=== PATIENT | male | born 1945 | race Caucasian/White ===

== ENCOUNTER 2018-04-21 12:34 | Inpatient (IN) ==
[2018-04-21 12:58] LABS: Baso % (Auto) 0.2 % (0.0-2.0); Eos # (Auto) 0.1 th/mm3 (0.0-0.4); Hematocrit 42.7 % (39.0-51.0); Hemoglobin 13.7 gm/dL (13.0-17.0); Lymph # (Auto) 1.1 th/mm3 (1.0-4.8); Lymph % (Auto) 11.2 % (9.0-44.0); Mean Corpuscular HGB Conc 32.2 % (32.0-36.0); Mean Corpuscular Hemoglobin 26.8 pg (27.0-34.0); Mean Corpuscular Volume 83.2 fL (80.0-100.0); Mean Platelet Volume 8.7 fL (7.0-11.0); Mono # (Auto) 0.7 th/mm3 (0.0-0.9); Mono % (Auto) 7.2 % (0.0-8.0); Neut # (Auto) 8.3 th/mm3 (1.8-7.7); Neut % (Auto) 80.4 % (16.0-70.0); Platelet Count 179 th/mm3 (150-450); Red Blood Count 5.13 mil/mm3 (4.50-5.90); Red Cell Distribution Width 12.6 % (11.6-17.2); White Blood Count 10.2 th/mm3 (4.0-11.0)
[2018-04-21 13:09] LABS: Chloride 102 meq/L (98-107); Potassium 4.2 meq/L (3.5-5.1); Sodium 140 meq/L (136-145)
[2018-04-21 13:12] LABS: Albumin 3.5 g/dL (3.4-5.0); Anion Gap 8 meq/L (5-15); Calcium 8.5 mg/dL (8.5-10.1); Carbon Dioxide 29.6 meq/L (21.0-32.0)
--- NOTE | 2018-04-21 13:12 | ED ---
HPI General Chief complaint: Chest Pain Stated complaint: Chest tightness Time Seen by Provider: 04/21/18 12:47 History of Present Illness HPI narrative: Mr. Martin is a 73-year-old with a PMH significant for CHF, COPD and diabetes mellitus type 2 who presents to the ED with a chief complaint of having "difficulty breathing and head pressure." The symptoms first occurred morning while the patient was playing golf. The symptoms resolved and occurred again this morning. He took an albuterol breathing treatment with no symptomatic relief. His blood pressure was 168/73 mmHg this morning and he decided to visit the ED. He endorses mild SOB. He denies chest pain, dyspnea on deep inspiration, fever, chills, nausea, vomiting, diaphoresis, ligthheadedness , headache, change in vision, abdominal pain, weakness, tingling and numbness. Related Data Home Medications Medication Instructions Recorded Confirmed albuterol sulfate 0.63 mg INHALATION QID PRN 04/21/18 04/21/18 celecoxib [Celebrex] 200 mg PO DAILY 04/21/18 04/21/18 furosemide [Lasix] 20 mg PO DAILY PRN 04/21/18 04/21/18 metformin 1,000 mg PO DAILY 04/21/18 04/21/18 metformin 500 mg PO DAILY 04/21/18 04/21/18 pantoprazole 20 mg PO DAILY 04/21/18 04/21/18 potassium chloride 10 meq PO DAILY PRN 04/21/18 04/21/18 tiotropium bromide [Spiriva 2 puff INHALATION DAILY 04/21/18 04/21/18 Respimat] Allergies Allergy/AdvReac Type Severity Reaction Status Date / Time No Known Allergies Allergy Unverified 04/21/18 13:07 Review of Systems ROS: all other systems reviewed are negative [facility] Medical History Medical History Hx of fracture of femur (Acute) Hx of congestive heart failure (Acute) History of COPD (Acute) Hx of diabetes mellitus (Acute) Social History Social History Substance History: No History of Abuse Second Hand Smoke Exposure: No Smoking Status: Former smoker Tobacco Type: Cigarettes How Often Do You Have a Drink Containing Alcohol: Never Recent Travel in [facility] within the Last 8 Weeks: No Recent Out of Country Travel within the Last 8 Weeks: No Exam Narrative Exam Narrative: GENERAL: Appears in no sign of distress. Speaks logically and without difficulty. SKIN: Warm and dry. HEAD: Atraumatic. Normocephalic. EYES: Pupils equal and round. No scleral icterus. No injection or drainage. ENT: No nasal bleeding or discharge. Mucous membranes pink and moist. NECK: Trachea midline. No JVD. CARDIOVASCULAR: Regular rate and rhythm. No rubs or murmurs. RESPIRATORY: No accessory muscle use. Wheezes auscultated bilaterally at the base and midthoracic level. GASTROINTESTINAL: Abdomen soft, nondistended. Hepatic and splenic margins not palpable. Mildly tender to palpation in epigastric region. MUSCULOSKELETAL: Extremities without clubbing, cyanosis. No obvious deformities. Bilateral +1 pitting edema of the legs. NEUROLOGICAL: Awake and alert. No obvious cranial nerve deficits. Motor grossly within normal limits. Five out of 5 muscle strength in the arms and legs. Normal speech. PSYCHIATRIC: Appropriate mood and affect; insight and judgment normal. Course Initial Documented Vital Signs Temperature 98 F 04/21/18 12:40 Pulse Rate 88 04/21/18 12:40 Respiratory Rate 22 04/21/18 12:40 Blood Pressure 150/67 H 04/21/18 12:40 Pulse Oximetry 98 04/21/18 12:40 Last Documented Vital Signs Temperature 98 F 04/21/18 12:40 Pulse Rate 69 04/21/18 14:40 Respiratory Rate 20 04/21/18 14:40 Blood Pressure 146/74 H 04/21/18 13:55 Pulse Oximetry 95 04/21/18 13:55 Medical Decision Making MDM Narrative Medical decision making narrative: EKG did not shows any signs of acute ST changes or dysrhythmias. Chest x-ray shows a cardiomegaly with fullness around the medial vasculature, questionable for underlying CHF history. No obvious signs of lobar pneumonia identified. BNP was not significantly elevated. Patient was treated with Solu-Medrol and nebulizers in the ER. Lab work also shows mild elevation of troponin of 0.08. This is of uncertain etiology. At this point, plan would be to admit him for further evaluation and trending of troponin. Case was discussed with Dr. Gan for admission. Medical Screen Exam Complete: Yes Emergency Medical Condition: Yes Differential Diagnosis Differential Diagnosis: CHF exacerbation versus pneumonia versus COPD exacerbation versus hypertensive urgency Lab Data Lab results reviewed: Yes I reviewed the patient's lab results. Result diagrams: 04/21/18 12:45 04/21/18 12:45 Lab Results 04/21/18 04/21/18 04/21/18 Range/Units 12:45 12:45 12:45 CBC w Diff Auto diff final WBC 10.2 (4.0-11.0) th/mm3 RBC 5.13 (4.50-5.90) mil/mm3 Hgb 13.7 (13.0-17.0) gm/dL Hct 42.7 (39.0-51.0) % MCV 83.2 (80.0-100.0) fL MCH 26.8 L (27.0-34.0) pg MCHC 32.2 (32.0-36.0) % RDW 12.6 (11.6-17.2) % Plt Count 179 (150-450) th/mm3 MPV 8.7 (7.0-11.0) fL Neut % (Auto) 80.4 H (16.0-70.0) % Lymph % (Auto) 11.2 (9.0-44.0) % Martin % (Auto) 7.2 (0.0-8.0) % Eos % (Auto) 1.0 (0.0-4.0) % Baso % (Auto) 0.2 (0.0-2.0) % Neut # (Auto) 8.3 H (1.8-7.7) th/mm3 Lymph # (Auto) 1.1 (1.0-4.8) th/mm3 [place] # (Auto) 0.7 (0.0-0.9) th/mm3 Eos # (Auto) 0.1 (0.0-0.4) th/mm3 Baso # (Auto) 0.0 (0.0-0.2) th/mm3 WBC Differential . Differential Comment . Sodium 140 (136-145) meq/L Potassium 4.2 (3.5-5.1) meq/L Chloride 102 (98-107) meq/L Carbon Dioxide 29.6 (21.0-32.0) meq/L Anion Gap 8 (5-15) meq/L BUN 15 (7-18) mg/dL Creatinine 0.84 (0.60-1.30) mg/dL Estimated GFR 89 (>89) mL/min Random Glucose 160 H (74-106) mg/dL Calcium 8.5 (8.5-10.1) mg/dL Total Bilirubin 0.2 (0.2-1.0) mg/dL AST 37 (15-37) U/L ALT 51 (12-78) U/L Alkaline Phosphatase 115 (45-117) U/L Troponin I 0.08 H (0.02-0.05) ng/mL B-Natriuretic Peptide 89 (0-100) pg/mL Total Protein 7.4 (6.4-8.2) g/dL Albumin 3.5 (3.4-5.0) g/dL Imaging Data Attestation: I personally reviewed and interpreted this imaging study as follows : Radiologist's impression: Chest X-Ray 04/21/18 12:48 CONCLUSION: Interstitial prominence and patchy basilar parenchymal densities. ECG Data Attestation: I personally reviewed and interpreted this ECG as follows: Interpretation: EKG shows normal sinus rhythm at a rate of 80 bpm. No signs of acute ST elevations or depressions. Discharge Plan Discharge Disposition Patient Disposition: 30 Still Patient Discharge Condition Condition: Stable Discharge Details Anticipated Discharge Date: 04/21/18 Diagnosis: Hx of congestive heart failure, Elevated troponin Physicians Team ED Provider: Cesar Heredia Primary Care Provider: Emeterio Cavazos Rxs /Orders / Referrals /Forms Prescriptions: No Action celecoxib [Celebrex] 200 mg Capsule 200 mg PO DAILY RF: 0 metformin 500 mg Tablet 500 mg PO DAILY RF: 0 albuterol sulfate 0.63 mg/3 mL Solution For Nebulization 0.63 mg INHALATION QID PRN (Reason: Respiratory Distress) RF: 0 pantoprazole 20 mg Tablet,Delayed Release (Dr/Ec) 20 mg PO DAILY RF: 0 metformin 1,000 mg Tablet 1,000 mg PO DAILY RF: 0 tiotropium bromide [Spiriva Respimat] 1.25 mcg/actuation Mist 2 puff INHALATION DAILY RF: 0 potassium chloride 10 mEq Capsule, Extended Release 10 meq PO DAILY PRN (Reason: Edema) RF: 0 furosemide [Lasix] 20 mg Tablet 20 mg PO DAILY PRN (Reason: Edema) RF: 0 Discharge Instructions Patient Printed Instructions: Chest Pain (ED) Discharge Interventions Interventions: Vital Signs Last Done: 04/21/18 13:55 Status ED Status: With Doctor
[2018-04-21 13:13] LABS: Blood Urea Nitrogen 15 mg/dL (7-18); Glucose,Random 160 mg/dL (74-106)
[2018-04-21 13:15] LABS: Alanine Aminotransferase 51 U/L (12-78)
[2018-04-21 13:16] LABS: Aspartate Aminotransferase 37 U/L (15-37); Glomerular Filtration Rate 89 mL/min (>89)
--- NOTE | 2018-04-21 13:16 | XR ---
EXAM DATE: 04/21/2018 1:11 PM EDT AGE/SEX: 73 years / Male INDICATIONS: Chest pains today CLINICAL DATA: This is the patient's initial encounter. Patient reports that signs and symptoms have been present for 1 day and indicates a pain score of 5/10. MEDICAL/SURGICAL HISTORY: Chronic obstructive pulmonary disease. None. COMPARISON: POI, XR CHEST PA AND LAT, 04/21/2016. . FINDINGS: There is mild interstitial prominence and patchy basilar densities suspect for developing airspace di sease. Cardiomegaly is noted. Degenerative changes of the spine are seen. CONCLUSION: Interstitial prominence and patchy basilar parenchymal densities. Electronically signed by: Nash Gilbert MD 04/21/2018 1:15 PM EDT
[2018-04-21 13:17] LABS: Total Protein 7.4 g/dL (6.4-8.2)
[2018-04-21 13:18] LABS: Alkaline Phosphatase 115 U/L (45-117)
[2018-04-21 13:20] LABS: Troponin I 0.08 ng/mL (0.02-0.05)
[2018-04-21] MEDS ORDERED: MethylPREDNISolone Sod Succinate Inj 125 MG/2 ML Vial IV.PUSH ONE (14:28)
[2018-04-21] MEDS ORDERED: Acetaminophen 325 MG Tablet PO PRN (14:47)
[2018-04-21] MEDS ORDERED: Bisacodyl 10 MG Supp RECTAL PRN (14:47)
[2018-04-21] MEDS ORDERED: Enoxaparin Inj 40 MG/0.4 ML Syringe SQ SCH (16:30)
--- NOTE | 2018-04-21 16:34 | P.HP ---
History of Present Illness Service: Hospitalist Primary Care Physician: Emeterio Cavazos MD Chief Complaint: Shortness of breath History of Present Illness: Mr. Martin is a pleasant 73-year-old male with a history of COPD who presents to the emergency department due to shortness of breath as well as worsening cough and head pressure. On , 04/18/2018, patient went to play golf and after playing 9 holes he returned home. Patient had some shortness of breath and head pressure but improved. However this morning he started feeling shortness of breath again. He denies any fever or chills. He denies any chest pain, abdominal pain, nausea or vomiting. No changes in bowel or bladder habits. Chest x-ray shows interstitial prominence and patchy basilar parenchymal densities. His first troponin was 0.08. BNP 89. Of note, patient has Breo for COPD as well as Spiriva. He takes Spiriva daily but not Breo. Past medical history: COPD, diabetes, GERD Past surgical history: Left femur surgery in 2013 Social history. Patient denies using tobacco, alcohol, illicit drugs. Father had cancer. Review of Systems All other systems reviewed negative except as stated in HPI PMFSH - History History Provided By: Patient - Medical History Medical History: Medical History (Last Reviewed 04/21/18 @ 14:48 by Cesar Heredia MD) Hx of fracture of femur (Acute) Hx of congestive heart failure (Acute) History of COPD (Acute) Hx of diabetes mellitus (Acute) - Tobacco History Second Hand Smoke Exposure: No Tobacco Use In Past 30 Days: No Smoking Status: Former smoker Tobacco Type: Cigarettes - Alcohol History How Often Do You Have a Drink Containing Alcohol: Never - Substance Use History Substance History: No History of Abuse - Travel History Recent Travel in the [place] Within the Last 8 Weeks: No Recent Travel Out of the Country Within the Last 8 Weeks: No - Immunization History Tetanus Immunization: <5 Years Hx Influenza Vaccine This Season: Yes Medications and Allergies Active Medications: Active Medications Acetaminophen (Tylenol) 650 mg PO Q4H PRN PRN Reason: Headache, fever, pain 1-4 Al Hydroxide/Mg Hydroxide (Milk Of Magnesia Liq) 30 ml PO Q12H PRN PRN Reason: Mild Constipation Albuterol (Duoneb Neb (Prn)) 1 ampul NEB Q4HR NEB PRN PRN Reason: SHORTNESS OF BREATH Bisacodyl (Dulcolax Supp) 10 mg RECTAL DAILY PRN PRN Reason: SEVERE CONSITIPATION Lactulose (Lactulose Liq) 30 ml PO DAILY PRN PRN Reason: SEVERE CONSITIPATION Ondansetron HCl (Zofran Inj) 4 mg IV.PUSH Q6H PRN PRN Reason: NAUSEA OR VOMITING Sennosides (Senokot) 17.2 mg PO Q12H PRN PRN Reason: Moderate Constipation Sodium Chloride (Ns Flush) 2 ml IV.FLUSH UNSCH PRN PRN Reason: FLUSH AFTER USING IV ACCESS Allergies Allergy/AdvReac Type Severity Reaction Status Date / Time No Known Allergies Allergy Unverified 04/21/18 13:07 Home Medications Medication Instructions Recorded Confirmed Type albuterol sulfate 0.63 mg INHALATION QID PRN 04/21/18 04/21/18 History celecoxib [Celebrex] 200 mg PO DAILY 04/21/18 04/21/18 History furosemide [Lasix] 20 mg PO DAILY PRN 04/21/18 04/21/18 History metformin 1,000 mg PO DAILY 04/21/18 04/21/18 History metformin 500 mg PO DAILY 04/21/18 04/21/18 History pantoprazole 20 mg PO DAILY 04/21/18 04/21/18 History potassium chloride 10 meq PO DAILY PRN 04/21/18 04/21/18 History tiotropium bromide [Spiriva 2 puff INHALATION DAILY 04/21/18 04/21/18 History Respimat] Exam Vital signs: Vital Signs 04/21/18 12:40 04/21/18 13:03 04/21/18 13:25 Temperature 98 F Pulse Rate 88 88 78 Respiratory Rate 22 20 Blood Pressure 150/67 H 128/69 Pulse Oximetry 98 98 96 04/21/18 13:55 04/21/18 14:40 04/21/18 15:22 Temperature Pulse Rate 78 69 72 Respiratory Rate 22 20 Blood Pressure 146/74 H 147/71 H Pulse Oximetry 95 95 04/21/18 15:45 Temperature 98.1 F Pulse Rate 84 Respiratory Rate 22 Blood Pressure 152/80 H Pulse Oximetry 95 Intake & Output 04/20/18 04/21/18 04/21/18 18:59 06:59 18:59 Intake Total 120 / 120 Output Total 750 / 750 Balance -630 / -630 Weight 129 kg Intake: Oral 120 / 120 Output: Urine 750 / 750 Narrative: GENERAL: This is a well-nourished, well-developed patient, in no apparent distress. SKIN: No rashes, ecchymoses or lesions. Warm and dry. HEAD: Atraumatic. Normocephalic. No temporal or scalp tenderness. EYES: Pupils equal round and reactive. No injection or drainage. ENT: Nose without bleeding, purulent drainage or septal hematoma. Airway patent. NECK: Trachea midline. No lymphadenopathy. Supple, nontender, no meningeal signs. CARDIOVASCULAR: Regular rate and rhythm without murmurs, gallops, or rubs. No JVD. RESPIRATORY: Moderate air entry. No wheezing noted. GASTROINTESTINAL: Abdomen soft, non-tender, nondistended. No guarding. MUSCULOSKELETAL: Extremities without clubbing, cyanosis. 1+ edema noted in the lower extremities. NEUROLOGICAL: Awake and alert. Cranial nerves II through XII intact. No focal neurological deficits. Normal speech. Results - Labs CBC & Chem 7: 04/21/18 12:45 04/21/18 12:45 Labs: Laboratory Results - last 24 hr 04/21/18 04/21/18 04/21/18 12:45 12:45 12:45 CBC w Diff Auto diff final WBC 10.2 RBC 5.13 Hgb 13.7 Hct 42.7 MCV 83.2 MCH 26.8 L MCHC 32.2 RDW 12.6 Plt Count 179 MPV 8.7 Neut % (Auto) 80.4 H Lymph % (Auto) 11.2 [place] % (Auto) 7.2 Eos % (Auto) 1.0 Baso % (Auto) 0.2 Neut # (Auto) 8.3 H Lymph # (Auto) 1.1 [place] # (Auto) 0.7 Eos # (Auto) 0.1 Baso # (Auto) 0.0 WBC Differential . Differential Comment . Sodium 140 Potassium 4.2 Chloride 102 Carbon Dioxide 29.6 Anion Gap 8 BUN 15 Creatinine 0.84 Estimated GFR 89 Random Glucose 160 H Calcium 8.5 Total Bilirubin 0.2 AST 37 ALT 51 Alkaline Phosphatase 115 Troponin I 0.08 H B-Natriuretic Peptide 89 Total Protein 7.4 Albumin 3.5 - Imaging Impressions Chest X-Ray 04/21/18 12:48 CONCLUSION: Interstitial prominence and patchy basilar parenchymal densities. Caprini VTE Risk Assessment Caprini VTE Risk Assessment: Moderate/High Risk (score >= 2) Caprini Risk Assessment Model: Point Value = 1 Point Value = 2 Point Value = 3 Point Value = 5 Age 41-60 Minor surgery BMI > 25 kg/m2 Swollen legs Varicose veins or History of unexplained or recurrent spontaneous Oral contraceptives or hormone replacement Sepsis (< 1 month) Serious lung disease, including pneumonia (< 1 month) Abnormal pulmonary function Acute myocardial infarction Congestive heart failure (< 1 month) History of inflammatory bowel disease Medical patient at bed rest Age 61-74 Arthroscopic surgery Major open surgery (> 45 min) Laparoscopic surgery (> 45 min) Malignancy Confined to bed (> 72 hours) Immobilizing plaster cast Central venous access Age >= 75 History of VTE Family history of VTE Factor V Leiden Prothrombin [id number] Lupus anticoagulant Anticardiolipin antibodies Elevated serum homocysteine Heparin-induced thrombocytopenia Other congenital or acquired thrombophilia Stroke (< 1 month) Elective arthroplasty Hip, pelvis, or leg fracture Acute spinal cord injury (< 1 month) Prophylaxis Regimen: Total Risk Factor Score Risk Level Prophylaxis Regimen 0-1 Low Early ambulation 2 Moderate Order ONE of the following: *Sequential Compression Device (SCD) *Heparin 5000 units SQ BID 3-4 Higher Order ONE of the following medications: *Heparin 5000 units SQ TID *Enoxaparin/Lovenox 40 mg SQ daily (WT < 150 kg, CrCl > 30 mL/min) *Enoxaparin/Lovenox 30 mg SQ daily (WT < 150 kg, CrCl > 10-29 mL/min) *Enoxaparin/Lovenox 30 mg SQ BID (WT < 150 kg, CrCl > 30 mL/min) AND/OR *Sequential Compression Device (SCD) 5 or more Highest Order ONE of the following medications: *Heparin 5000 units SQ TID (Preferred with Epidurals) *Enoxaparin/Lovenox 40 mg SQ daily (WT < 150 kg, CrCl > 30 mL/min) *Enoxaparin/Lovenox 30 mg SQ daily (WT < 150 kg, CrCl > 10-29 mL/min) *Enoxaparin/Lovenox 30 mg SQ BID (WT < 150 kg, CrCl > 30 mL/min) AND *Sequential Compression Device (SCD) Assessment and Plan - Plan Mr. Martin is a pleasant 73-year-old male with a history of COPD who presents to the emergency department due to shortness of breath and cough. His symptoms started on 04/18/2018 after he played golf. ED workup indicates chest x -ray showing interstitial lung disease, troponin was 0.08. BNP was 89. Likely acute exacerbation of COPD -[id number] -We will start patient on DuoNeb every 4 hours as needed -We will avoid steroids for now. -We will start patient on Breo. -Start doxycycline 100mg BID X 7 days. Interstitial lung disease -Recommended patient to obtain outpatient pulmonary referral -May need high resolution CT chest in the outpatient setting. Elevated troponin - Troponin 0.08 is probably related to respiratory issues. - Will trend troponin, if an upward trend noted, we will consult Dr. Basurto' s group for further evaluation. Full code. Lovenox. Probable discharge on 04/22/2018.
[2018-04-22] MEDS ORDERED: Heparin 10,000 UNITS/10 ML Vial (for IV use) IV.PUSH ONE (07:30)
[2018-04-22 07:41] LABS: Hemoglobin 14.4 gm/dL (13.0-17.0); Mean Corpuscular HGB Conc 32.8 % (32.0-36.0); Mean Corpuscular Hemoglobin 27.3 pg (27.0-34.0); Mean Corpuscular Volume 83.3 fL (80.0-100.0); Platelet Count 206 th/mm3 (150-450); Red Blood Count 5.28 mil/mm3 (4.50-5.90); Red Cell Distribution Width 12.8 % (11.6-17.2); White Blood Count 16.7 th/mm3 (4.0-11.0)
[2018-04-22] MEDS ORDERED: Aspirin 325 MG Tablet PO ONE (07:45)
[2018-04-22 07:56] LABS: Activated Partial Thrombo Time 26.1 sec (24.3-30.1); INR 1.1 Ratio; Prothrombin Time 10.7 sec (9.8-11.6)
[2018-04-22 08:01] LABS: Creatine Kinase 167 U/L (39-308)
[2018-04-22] MEDS: Lisinopril 5 MG Tablet PO SCH (08:08)
[2018-04-22] MEDS: Heparin Drip 25,000 UNIT/250 ML BAG IV.CONT PRN (08:12)
[2018-04-22 08:13] LABS: Creatine Kinase MB 14.5 ng/mL (0.5-3.6)
--- NOTE | 2018-04-22 08:50 | P.PN ---
Subjective Interval history: Follow up for non-STEMI. Patient is currently doing well. Denies any chest pain or shortness of breath, fever or chills. No dizziness or lightheadedness. Physical Exam Vital signs: Vital Signs 04/21/18 12:40 04/21/18 13:03 04/21/18 13:25 Temperature 98 F Pulse Rate 88 88 78 Respiratory Rate 22 20 Blood Pressure 150/67 H 128/69 Pulse Oximetry 98 98 96 04/21/18 13:55 04/21/18 14:40 04/21/18 15:22 Temperature Pulse Rate 78 69 72 Respiratory Rate 22 20 Blood Pressure 146/74 H 147/71 H Pulse Oximetry 95 95 04/21/18 15:45 04/21/18 16:00 04/21/18 20:00 Temperature 98.1 F 97.5 F L 98.2 F Pulse Rate 84 91 H 90 Respiratory Rate 22 18 16 Blood Pressure 152/80 H 143/78 H 139/74 Pulse Oximetry 95 95 95 04/22/18 00:00 04/22/18 01:29 04/22/18 08:21 Temperature 98.4 F Pulse Rate 95 H 85 Respiratory Rate 16 20 Blood Pressure 135/74 Pulse Oximetry 95 93 L 94 L Intake & Output 04/21/18 04/22/18 04/22/18 18:59 06:59 18:59 Intake Total 480 / 480 Output Total 751 / 751 Balance -271 / -271 Weight 129 kg 126.4 kg Intake: Oral 480 / 480 Output: Urine 750 / 750 Stool 1 / 1 Other: # Voids 5 Narrative: GENERAL: Alert, oriented 3, NAD. SKIN: Warm and dry. HEAD: Normocephalic. EYES: No scleral icterus. No injection or drainage. NECK: Supple, trachea midline. No JVD or lymphadenopathy. CARDIOVASCULAR: Regular rate and rhythm without murmurs, gallops, or rubs. RESPIRATORY: Breath sounds equal bilaterally. No accessory muscle use. GASTROINTESTINAL: Morbidly obese abdomen, soft, non-tender, nondistended. MUSCULOSKELETAL: No cyanosis, or edema. BACK: Nontender without obvious deformity. No CVA tenderness. Results - Labs CBC & Chem 7: 04/22/18 07:35 04/21/18 12:45 Laboratory Results - last 24 hr 04/21/18 04/21/18 04/21/18 12:45 12:45 12:45 CBC w Diff Auto diff final WBC 10.2 RBC 5.13 Hgb 13.7 Hct 42.7 MCV 83.2 MCH 26.8 L MCHC 32.2 RDW 12.6 Plt Count 179 MPV 8.7 Neut % (Auto) 80.4 H Lymph % (Auto) 11.2 [place] % (Auto) 7.2 Eos % (Auto) 1.0 Baso % (Auto) 0.2 Neut # (Auto) 8.3 H Lymph # (Auto) 1.1 [place] # (Auto) 0.7 Eos # (Auto) 0.1 Baso # (Auto) 0.0 WBC Differential . Differential Comment . PT INR APTT Sodium 140 Potassium 4.2 Chloride 102 Carbon Dioxide 29.6 Anion Gap 8 BUN 15 Creatinine 0.84 Estimated GFR 89 Random Glucose 160 H Calcium 8.5 Total Bilirubin 0.2 AST 37 ALT 51 Alkaline Phosphatase 115 Total Creatine Kinase CK-MB (CK-2) Troponin I 0.08 H B-Natriuretic Peptide 89 Total Protein 7.4 Albumin 3.5 04/21/18 04/21/18 04/22/18 16:05 22:03 07:35 CBC w Diff WBC 16.7 H D RBC 5.28 Hgb 14.4 Hct 44.0 MCV 83.3 MCH 27.3 MCHC 32.8 RDW 12.8 Plt Count 206 MPV 9.0 Neut % (Auto) Lymph % (Auto) [place] % (Auto) Eos % (Auto) Baso % (Auto) Neut # (Auto) Lymph # (Auto) [place] # (Auto) Eos # (Auto) Baso # (Auto) WBC Differential Differential Comment PT INR APTT Sodium Potassium Chloride Carbon Dioxide Anion Gap BUN Creatinine Estimated GFR Random Glucose Calcium Total Bilirubin AST ALT Alkaline Phosphatase Total Creatine Kinase CK-MB (CK-2) Troponin I 0.19 H 0.50 H B-Natriuretic Peptide Total Protein Albumin 04/22/18 04/22/18 07:35 07:35 CBC w Diff WBC RBC Hgb Hct MCV MCH MCHC RDW Plt Count MPV Neut % (Auto) Lymph % (Auto) [place] % (Auto) Eos % (Auto) Baso % (Auto) Neut # (Auto) Lymph # (Auto) [place] # (Auto) Eos # (Auto) Baso # (Auto) WBC Differential Differential Comment PT 10.7 INR 1.1 APTT 26.1 Sodium Potassium Chloride Carbon Dioxide Anion Gap BUN Creatinine Estimated GFR Random Glucose Calcium Total Bilirubin AST ALT Alkaline Phosphatase Total Creatine Kinase 167 CK-MB (CK-2) 14.5 H Troponin I 1.50 H* B-Natriuretic Peptide Total Protein Albumin - Imaging Impressions Chest X-Ray 04/21/18 12:48 CONCLUSION: Interstitial prominence and patchy basilar parenchymal densities. Assessment and Plan - Plan Mr. Martin is a pleasant 73-year-old male with a history of COPD who presents to the emergency department due to shortness of breath and cough. His symptoms started on 04/18/2018 after he played golf. ED workup indicates chest x -ray showing interstitial lung disease, troponin was 0.08. BNP was 89. Non-STEMI -Troponin this am 1.5. Cardiology consulted and notified. -We will transfer patient to the main hospital for possible cardiac catheterization. -Started patient on aspirin, beta-robe, PATIENCE inhibitor, Lipitor as well as nitroglycerin. -Heparin drip has been started as well. Likely acute exacerbation of COPD -[id number] -DuoNeb every 4 hours as needed -We will avoid steroids for now due to NSTEMI. -We will start patient on Breo. -doxycycline 100mg BID X 7 days. Interstitial lung disease -Recommended patient to obtain outpatient pulmonary referral -May need high resolution CT chest in the outpatient setting. Full code. Heparin drip.
[2018-04-22] MEDS ORDERED: Metoprolol Tartrate 25 MG Tablet PO SCH (09:00)
--- NOTE | 2018-04-22 09:11 | MB ---
cc: Soren Lord MD, Mark B MD Jamidar, Humayun A MD DATE: 04/22/2018 REASON FOR CONSULTATION: Shortness of breath and abnormal cardiac enzymes. REFERRING PHYSICIAN: Florinda Gan MD HISTORY OF PRESENT ILLNESS: Mr. Martin is a 73-year-old obese white male with history of COPD and congestive heart failure. He presented to the emergency room yesterday with complaints of progressive and worsening shortness of breath. He says it started about last when he was playing golf. It got slightly better, but seemed to again get worse over the weekend. He says at rest he feels fine, but with any exertion he has had some increasing shortness of breath. He denies any chest discomfort except for what he is calling "angina" intermittently. He has been taking his medications as directed at home. PAST MEDICAL HISTORY: Significant for possible congestive heart failure, possibly with preserved ejection fraction based upon his history. Except for COPD, diabetes and GERD, he denies any history of myocardial infarction, stroke, TIA, thyroid, liver or kidney disease. PAST SURGICAL HISTORY: Left femur surgery after a fracture in 2013. ALLERGIES: NONE KNOWN. MEDICATIONS: 1. Tylenol p.r.n. 2. DuoNeb nebulizers every 4 hours p.r.n. 3. Aspirin 325 mg daily. 4. Lipitor 10 mg daily. 5. Carvedilol daily. 6. Fluticasone vilanterol as a Breo Ellipta inhaler 1 puff daily. 7. Lisinopril 5 mg daily. 8. Nitroglycerin ointment 0.5 inches 2% ointment every 6 hours. FAMILY HISTORY: Noncontributory. SOCIAL HISTORY: Denies tobacco, alcohol or illicit drug use at this time. , living with his . Plays golf for exercise. He tells me he has gained 10 pounds over the past month or so. REVIEW OF SYSTEMS: Has some intermittent lower extremity edema, mostly towards the end of the day. Denies claudication. Denies any exertional chest discomfort. Denies palpitations, lightheadedness, or syncope. Except for that mentioned in the HPI, his complete 12-point review of systems is otherwise negative. PHYSICAL EXAMINATION: GENERAL: Reveals an elderly, obese white male, sitting up on the side of the bed, in no distress at this time. VITAL SIGNS: Blood pressure 135/74 mmHg, heart rate 95 and regular, respiratory rate 16, temperature 98.4, oxygen saturation is 94% on room air. HEENT: Head is normocephalic and atraumatic. Pupils equal, round, reactive to light. Sclerae are anicteric. Extraocular movements intact. NECK: Supple. There is no adenopathy. There is no jugular venous distention at 90 degrees. Carotid upstrokes are normal. No bruits. Thyroid exam is normal. LUNGS: Clear. There are decreased breath sounds bilaterally. HEART: PMI is not displaced. S1, S2 are distant. I hear no murmurs, gallops, clicks or rubs. ABDOMEN: Obese. Bowel sounds present. Soft, nontender. EXTREMITIES: No cyanosis or clubbing. There is trace pitting edema at the ankles. Perfusion is adequate in the upper and lower extremities. NEUROLOGIC: Nonfocal. LABORATORY DATA: Three EKGs were reviewed since admission. They all reveal sinus rhythm with nonspecific ST abnormality. No significant changes on serial EKGs. Borderline normal EKG. Chest x-ray shows interstitial prominence and patchy basilar parenchymal densities. LABORATORY DATA: CBC: White count 16.7, hemoglobin 14.4, platelet count 206,000. Coagulation studies are normal. Chemistries are normal. BUN 15, creatinine 0.84, AST 37. Initial troponin I on arrival yesterday at 12:45 was 0.08. Subsequent troponin I's of 0.19, 0.50 and this morning at 7:35 increased to 1.50. Total CPK this morning 167 with a CPK-MB of 14.5. Her lipid panel is pending. IMPRESSION: 1. Recent onset of progressive dyspnea with history of congestive heart failure. 2. Elevated cardiac enzymes consistent with non-ST elevation myocardial infarction. 3. 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 4. Diabetes mellitus type 2. 5. Morbid obesity. RECOMMENDATIONS: The patient will be placed on Heparin infusion, Carvedilol. Has already been given aspirin and will be transferred to the main hospital for further evaluation. An echocardiogram has been ordered and is pending. Discussed the plans in detail with the patient and his and Fredy CORTES. Dr. Basurto will return in the morning and reevaluate him. It is likely that he will consider cardiac catheterization for further evaluation. Thank you for allowing us to participate in the care of this patient. MD INÉS Coelho/macario , 08:35 AM , 08:46 AM
[2018-04-22 10:29] LABS: Chol/HDL Ratio 5.43 Ratio; HDL Cholesterol 44.5 mg/dL (40.0-60.0)
--- NOTE | 2018-04-22 12:28 | ECHRPT ---
Indication: SOB CONCLUSIONS Normal left ventricular size. Wall thickness is normal. The left ventricular systolic function is normal with an estimated ejection fraction in the range of 55-60%. There was limited left ventricular wall motion assessment due to poor endocardial visualization. Aortic valve sclerosis is present. BP: / HR: Rhythm: Technical Quality: FINDINGS LEFT VENTRICLE Normal left ventricular size. Wall thickness is normal. The left ventricular systolic function is normal with an estimated ejection fraction in the range of 55-60%. There was limited left ventricular wall motion assessment due to poor endocardial visualization. RIGHT VENTRICLE Normal right ventricular size and systolic function. LEFT ATRIUM The left atrial size is normal. RIGHT ATRIUM The right atrial size is normal. ATRIAL SEPTUM Normal atrial septal thickness without atrial level shunting by limited color doppler interrogation. AORTA The aortic root and proximal ascending aorta are normal in size on limited imaging. MITRAL VALVE Structurally normal mitral valve. No mitral valve stenosis or regurgitation. AORTIC VALVE Aortic valve sclerosis is present. TRICUSPID VALVE Structurally normal tricuspid valve. No tricuspid valve stenosis or regurgitation. PULMONARY VALVE The pulmonary valve is not well visualized. VESSELS The inferior vena cava is normal in size. PERICARDIUM No pericardial effusion. Demetrio Martin MD, FACC, [facility] [place] (Electronically Signed) Final Date:22 April 2018 12:26
--- NOTE | 2018-04-22 12:31 | ECG ---
Date Performed: 04/21/2018 Time Performed: 12:42:22 PTAGE: 73 years EKG: Sinus rhythm NORMAL ECG Since PREVIOUS TRACING , no significant change noted PREVIOUS TRACIN01/12/2014 08.19 DOCTOR: Marycruz Aponte Interpretating Date/Time 04/22/2018 12:31:29
--- NOTE | 2018-04-22 12:32 | ECG ---
Date Performed: 04/21/2018 Time Performed: 15:55:11 PTAGE: 73 years EKG: Sinus rhythm MINIMAL ST DEPRESSION BORDERLINE ECG Since PREVIOUS TRACING , no significant change noted PREVIOUS TRACIN04/21/2018 12.42 DOCTOR: Marycruz Aponte Interpretating Date/Time 04/22/2018 12:31:41
--- NOTE | 2018-04-22 13:12 | ECG ---
Date Performed: 04/21/2018 Time Performed: 22:00:49 PTAGE: 73 years EKG: Sinus rhythm NONSPECIFIC ST & T-WAVE ABNORMALITY BORDERLINE ECG Compared to PREVIOUS TRACING , the ST depression in the anterior and lateral leads is minimally incre ased, but the tracing remains largely within normal limits. Nevertheless, in the setting of slight se rial change, clinical correlation to exclude myocardial ischemia would be useful. PREVIOUS TRACIN 04/21/2018 15.55 DOCTOR: Marycruz Aponte Interpretating Date/Time 04/22/2018 13:11:36
[2018-04-22] MEDS ORDERED: Heparin 10,000 UNITS/10 ML Vial (for IV use) IV.PUSH PRN (13:21)
[2018-04-22] MEDS: Heparin 10,000 UNITS/10 ML Vial (for IV use) IV.PUSH PRN ×2 (17:28→22:13)
--- NOTE | 2018-04-22 21:42 | ECG ---
Date Performed: 04/22/2018 Time Performed: 07:59:20 PTAGE: 73 years EKG: Sinus rhythm NONSPECIFIC T-WAVE ABNORMALITY BORDERLINE ECG PREVIOUS TRACING : 04/21/2018 22.00 No significant change from previous tracing noted. DOCTOR: Michael Puckett Interpretating Date/Time 04/22/2018 21:40:21
[2018-04-23] MEDS ORDERED: Metoprolol Tartrate 25 MG Tablet PO SCH (05:00)
[2018-04-23] MEDS: Heparin Drip 25,000 UNIT/250 ML BAG IV.CONT PRN (05:34)
[2018-04-23 05:54] LABS: Hematocrit 41.4 % (39.0-51.0); Hemoglobin 13.3 gm/dL (13.0-17.0); Mean Corpuscular HGB Conc 32.2 % (32.0-36.0); Mean Corpuscular Hemoglobin 26.7 pg (27.0-34.0); Mean Platelet Volume 9.4 fL (7.0-11.0); Platelet Count 182 th/mm3 (150-450); Red Blood Count 4.98 mil/mm3 (4.50-5.90); Red Cell Distribution Width 13.8 % (11.6-17.2); White Blood Count 12.6 th/mm3 (4.0-11.0)
[2018-04-23] MEDS: Heparin 10,000 UNITS/10 ML Vial (for IV use) IV.PUSH PRN ×2 (06:12→13:24)
[2018-04-23] MEDS: Aspirin 325 MG Tablet PO SCH (08:52)
[2018-04-23] MEDS: Lisinopril 5 MG Tablet PO SCH (09:05)
--- NOTE | 2018-04-23 09:24 | P.PNCA ---
Subjective Interval history: Patient sitting up in chair, at bedside. He reports that over the weekend he developed SOB, arm heaviness and elevated blood pressure and decided to come to hospital. He is currently on Heparin drip and nitro paste. He denies any chest pain or SOB currently. Troponin elevated, 0.08 on arrival, 1.50 most recent. WBC elevated, 10.2 on arrival, 16.7, most recent 12.6. All options discussed in detail with patient and including heart cath and medical management. Physical Exam Vital signs: Vital Signs 04/22/18 12:00 04/22/18 14:37 04/22/18 15:00 Temperature 97.2 F L 98.1 F Pulse Rate 74 74 85 Respiratory Rate 18 18 Blood Pressure 120/62 129/69 Pulse Oximetry 95 98 04/22/18 16:00 04/22/18 17:00 04/22/18 18:00 Temperature Pulse Rate 74 84 78 Respiratory Rate Blood Pressure Pulse Oximetry 04/22/18 19:00 04/22/18 20:00 04/22/18 21:00 Temperature 98.1 F Pulse Rate 80 76 76 Respiratory Rate 18 Blood Pressure 104/62 Pulse Oximetry 95 04/22/18 22:00 04/22/18 23:00 04/23/18 00:00 Temperature 97.8 F Pulse Rate 70 68 74 Respiratory Rate 18 Blood Pressure 119/73 Pulse Oximetry 95 04/23/18 01:00 04/23/18 02:00 04/23/18 03:00 Temperature Pulse Rate 62 61 67 Respiratory Rate Blood Pressure Pulse Oximetry 04/23/18 04:00 04/23/18 05:00 04/23/18 06:00 Temperature 98 F Pulse Rate 66 68 87 Respiratory Rate 16 Blood Pressure 91/54 L Pulse Oximetry 93 L 04/23/18 07:23 Temperature Pulse Rate 71 Respiratory Rate Blood Pressure Pulse Oximetry Intake & Output 04/22/18 04/23/18 04/23/18 18:59 06:59 18:59 Intake Total 480 / 480 490 / 490 Output Total 100 / 100 950 / 950 Balance 380 / 380 -460 / -460 Weight 126.2 kg Intake: IV 250 / 250 Heparin/D5W 25,000 U/250 mL 25, 250 / 250 000 unit In 250 ml @ 1,000 UNIT /HR 10 mls/hr IV.CONT TITRATE PRN Rx#:[id number] Oral 480 / 480 240 / 240 Output: Urine 100 / 100 950 / 950 Other: Date of Last Bowel Movement 04/22/18 04/22/18 04/23/18 # Bowel Movements 1 - Constitutional no acute distress - Routine HEENT Exam Head: Present: normocephalic, atraumatic Eye: Present: PERRL, normal accommodation ENT: Present: mucous membranes moist - Routine Neck Exam Present: supple - Routine Respiratory Exam Present: CTA bilaterally - Routine Cardiovascular Exam Present: RRR - Routine Abdominal Exam Comments: obese - Routine Skin Exam Present: intact - Routine Neurological Exam Present: alert, oriented X3 - Detailed Neurological Exam: Coma Scale Eye Opening: Spontaneous Verbal Response: Oriented Motor Response: Obey commands Ino Coma Scale Total: 15 - Routine Psychiatric Exam Present: normal affect Assessment and Plan - Plan Elevated cardiac enzymes-consistent with non-ST elevation [place] SOB Diabetes -Will plan to proceed with heart cath, all risks discussed with patient and ; including , bleeding, stroke, heart attack, renal failure, etc. (Dr. Oquendo will complete heart catheterization) Pt is on BB, Rachid inhibitor, ASA, and Statin. Lisinopril and coreg held this AM due to low BP. -SOB has resolved -DM managed with medications. The patient was seen and evaluated by Dr. Basurto who completed face to face encounter and physical exam. Discussed Condition With: Nurse, Dr. Basurto, and .
[2018-04-23] MEDS ORDERED: Dextrose 50% in Water 50 ML Vial IV.PUSH PRN (12:18)
--- NOTE | 2018-04-23 13:08 | P.PN ---
Subjective Interval history: 73-year-old male who is seen and examined today in follow-up for shortness of breath, non-ST elevated myocardial infarction. Patient is laying in bed comfortably. Patient denies any new complaints. Denies any chest pain. Still states he gets short of breath on exertion. Plans for cardiac catheterization today at 1600. Vital signs are stable, patient remains afebrile. Physical Exam Vital signs: Vital Signs 04/22/18 14:37 04/22/18 15:00 04/22/18 16:00 Temperature 98.1 F Pulse Rate 74 85 74 Respiratory Rate 18 Blood Pressure 129/69 Pulse Oximetry 98 04/22/18 17:00 04/22/18 18:00 04/22/18 19:00 Temperature Pulse Rate 84 78 80 Respiratory Rate Blood Pressure Pulse Oximetry 04/22/18 20:00 04/22/18 21:00 04/22/18 22:00 Temperature 98.1 F Pulse Rate 76 76 70 Respiratory Rate 18 Blood Pressure 104/62 Pulse Oximetry 95 04/22/18 23:00 04/23/18 00:00 04/23/18 01:00 Temperature 97.8 F Pulse Rate 68 74 62 Respiratory Rate 18 Blood Pressure 119/73 Pulse Oximetry 95 04/23/18 02:00 04/23/18 03:00 04/23/18 04:00 Temperature 98 F Pulse Rate 61 67 66 Respiratory Rate 16 Blood Pressure 91/54 L Pulse Oximetry 93 L 04/23/18 05:00 04/23/18 06:00 04/23/18 07:23 Temperature Pulse Rate 68 87 71 Respiratory Rate Blood Pressure Pulse Oximetry 04/23/18 08:00 04/23/18 09:00 04/23/18 10:00 Temperature 98.2 F Pulse Rate 71 70 70 Respiratory Rate 18 Blood Pressure 93/56 L Pulse Oximetry 95 04/23/18 11:37 04/23/18 12:19 Temperature 97.9 F Pulse Rate 68 Respiratory Rate 18 Blood Pressure 110/72 Pulse Oximetry 96 Intake & Output 04/22/18 04/23/18 04/23/18 18:59 06:59 18:59 Intake Total 480 / 480 490 / 490 Output Total 100 / 100 950 / 950 Balance 380 / 380 -460 / -460 Weight 126.2 kg Intake: IV 250 / 250 Heparin/D5W 25,000 U/250 mL 25, 250 / 250 000 unit In 250 ml @ 1,000 UNIT /HR 10 mls/hr IV.CONT TITRATE PRN Rx#:[id number] Oral 480 / 480 240 / 240 Output: Urine 100 / 100 950 / 950 Other: Date of Last Bowel Movement 04/22/18 04/22/18 04/23/18 # Bowel Movements 1 Narrative: GENERAL: Well-developed, obese with BMI 41.1, in no acute distress. alert and orientated HEENT: Head is normocephalic without any lesions or masses noted. Facial features are symmetric. Eyes: Extraocular muscles are intact. Conjunctivae were clear. NECK: Supple without any masses. Trachea midline no deviation. No JVD, CARDIAC: Regular rhythm, regular rate. S1/S2 are heard. No murmurs gallops or rubs. LUNGS: Clear to auscultation bilaterally. No wheeze, rhonchi or rales. No use of accessory muscles on inspiration or expiration. ABDOMEN: Soft, nontender. Nondistended. Bowel sounds heard in all 4 quadrants. No organomegaly or masses. Negative rebound, negative guarding. Patient has a very large diastasis recti EXTREMITIES: No edema, pulses are equal bilaterally. No cyanosis or clubbing NEUROLOGY: Mood and affect appear appropriate. Cranial nerves II through XII grossly intact. Moving all extremities, speech is clear Results - Labs CBC & Chem 7: 04/23/18 04:34 04/21/18 12:45 Laboratory Results - last 24 hr 04/22/18 04/22/18 04/23/18 15:20 21:17 04:34 WBC 12.6 H RBC 4.98 Hgb 13.3 Hct 41.4 MCV 83.0 MCH 26.7 L MCHC 32.2 RDW 13.8 Plt Count 182 MPV 9.4 APTT 29.4 32.7 H POC Glucose 04/23/18 04/23/18 04:34 11:40 WBC RBC Hgb Hct MCV MCH MCHC RDW Plt Count MPV APTT 35.0 H POC Glucose 144 H Microbiology 04/22/18 15:41 Stool Stool Occult Blood (KENYA) - Final Hemoccult negative Assessment and Plan - Plan Non-ST elevated myocardial infarction -Patient does have increased risk factors to include age, male, diabetes -Patient with positive troponin trend up to 1.5 -Patient was started on medications for cardioprotection to include aspirin, beta-robe, PATIENCE inhibitor, Lipitor, nitroglycerin, heparin IV -Cardiology consulted for further recommendations, plans for cardiac catheterization today at 1600 Hyperlipidemia -LDL was 177 -Patient started on Lipitor 40 mg daily Chronic obstructive pulmonary disease with likely acute exacerbation -Continue duo nebs every 4 hours as needed -Patient started on Brio -Continue doxycycline 100 mg every 12 hours for 7 days -We will defer steroids at this time due to acute myocardial infarction Interstitial lung disease -Recommended patient to obtain outpatient pulmonary referral -May need high resolution CT chest in the outpatient setting. Diabetes -Accu-Cheks with sliding scale insulin -Patient should resume diabetic diet DVT prevention -Heparin drip Discharge Planning: Anticipate discharge home after cardiac catheterization once cleared by cardiology
[2018-04-23] MEDS ORDERED: Heparin/NS PF Inj 1,000 ML ONE (15:41)
[2018-04-23] MEDS ORDERED: fentaNYL Citrate Inj 100 MCG/2 ML Ampul ONE (15:41)
[2018-04-23] MEDS ORDERED: Heparin 10,000 UNITS/10 ML Vial (for IV use) ONE (15:42)
[2018-04-23] MEDS: Insulin NovoLOG Aspart Correctional Sugar Inj SQ SCH ×2 (17:30→21:29)
[2018-04-23] MEDS ORDERED: Insulin Regular (For Infusion) 100 UNIT in Sodium Chlor 0.9% Inj 99 ML IV.CONT PRN (17:37)
[2018-04-23] MEDS ORDERED: Sodium Chlor 0.9% Inj 77.5 ML, Papaverine Inj 60 MG, Nitroglycerin Inj 100 MCG, dilTIAZ... IRRIGATION SCH ×3 (17:45)
[2018-04-23] MEDS ORDERED: Chlorhexidine 4% Topical 120 APPLIC/120 ML Bottle TOPICAL SCH (17:45)
[2018-04-23] MEDS ORDERED: Sodium Chloride 0.9% Irr Bot 500 ML, ceFAZolin Inj 500 MG IRRIGATION SCH ×2 (17:45)
--- NOTE | 2018-04-23 17:54 | P.CON ---
History of Present Illness Service: CT surgery Requesting Physician: Ted Oquendo Primary Care Provider: Emeterio Cavazos MD Family Provider: Emeterio Cavazos MD Chief Complaint: Shortness of breath, diaphoresis History of Present Illness: 73-year-old male with a history of COPD who presents to the emergency department due to shortness of breath as well as high BP. On , 2017, patient went to play golf and after playing 9 holes he returned home. Patient had some shortness of breath which improved. The morning of admission, he started feeling shortness of breath again and diaphoretic with an SBP of 168.. He denies any fever or chills. He denies any chest pain, abdominal pain , nausea or vomiting. No changes in bowel or bladder habits. He ruled-in for NSTEMI He underwent LHC this afternoon and was found to have 3 vessel and severe left main CAD. He is being considered for urgent CABG. Social history. Patient denies using tobacco, alcohol, illicit drugs. Father had cancer. Review of Systems Constitutional: Reports excessive sweating, Reports fatigue, Denies anorexia, Denies body ache(s), Denies chills, Denies daytime sleepiness, Denies fever(s), Denies headache(s), Denies increased appetite, Denies lack of energy, Denies malaise, Denies night sweats, Denies weakness, Denies weight gain, Denies weight loss, Denies other Eyes: Denies blind spots, Denies blurry vision, Denies bulging eyes, Denies change in vision, Denies double vision, Denies discharge, Denies dry eyes, Denies floaters, Denies irritation, Denies itchy eyes, Denies loss of vision, Denies pain, Denies requires corrective lenses, Denies sensitivity to light, Denies other Ears, Nose, Mouth, and Throat: Denies abnormal hearing, Denies bleeding gums, Denies bad breath, Denies change in voice, Denies dental pain, Denies difficulty swallowing, Denies dizziness, Denies dry mouth, Denies ear discharge , Denies ear pain, Denies facial pain, Denies headache(s), Denies hearing loss, Denies hoarseness, Denies lip swelling, Denies nosebleed, Denies mouth lesions, Denies mouth pain, Denies nasal congestion, Denies nasal discharge, Denies nasal obstruction, Denies nasal trauma, Denies neck lump, Denies neck pain, Denies nose pain, Denies pain with swallowing, Denies poor balance, Denies post nasal drip, Denies ringing in the ears, Denies sinus pain, Denies sinus pressure , Denies sore throat, Denies throat swelling, Denies tongue swelling, Denies other Cardiovascular: Reports excessive sweating, Reports shortness of breath with activity, Denies chest pain, Denies chest pain at rest, Denies chest pain with activity, Denies fainting, Denies fast heart rate, Denies foot swelling, Denies generalized swelling, Denies irregular heart rhythm, Denies leg pain with activity, Denies leg sores, Denies leg swelling, Denies lightheadedness, Denies radiating jaw, neck or arm pain, Denies rapid, pounding, or irregular heartbeat , Denies shortness of breath, Denies shortness of breath when lying down, Denies shortness of breath causing sudden awakening, Denies slow heart rate, Denies other Respiratory: Reports shortness of breath, Reports shortness of breath with activity, Denies change in phlegm color, Denies chest congestion, Denies cough, Denies coughing up blood, Denies excessive phlegm production, Denies pain on inspiration, Denies pain with cough, Denies snoring, Denies stridor, Denies wheezing, Denies other Gastrointestinal: Denies abdominal pain, Denies belching, Denies black, tarry stools, Denies bloating, Denies bright, red blood in stools, Denies change in bowel habits, Denies constant urge to pass stool, Denies change in stools, Denies coffee ground vomit, Denies constipation, Denies cramping, Denies difficulty swallowing, Denies excessive passing of gas, Denies feeling full early, Denies heartburn, Denies incontinent of stools, Denies loose stools, Denies nausea, Denies pain with swallowing, Denies vomiting, Denies vomiting blood, Denies other Genitourinary: Denies blood in semen, Denies blood in urine, Denies decreased urination, Denies difficulty urinating, Denies difficulty with ejaculations, Denies erectile dysfunction, Denies genital lesions, Denies genital pain, Denies painful urination, Denies side pain, Denies frequent nighttime urination , Denies painful ejaculations, Denies penile discharge, Denies scrotal swelling , Denies testicle lump, Denies testicle pain, Denies urinary frequency, Denies urinary hesitancy, Denies urinary incontinence, Denies urinary urgency, Denies other Musculoskeletal: Denies abnormal walking, Denies back pain, Denies body aches, Denies decreased muscle mass, Denies deformity, Denies joint pain, Denies joint swelling, Denies limited joint movement, Denies loss of height, Denies muscle cramps, Denies muscle weakness, Denies neck pain, Denies numbness, Denies radiating pain into limb, Denies stiffness, Denies tingling, Denies other Skin/Breast: Denies acne, Denies bleeding lesions, Denies boil, Denies breast swelling, Denies breast skin changes, Denies breast pain, Denies breast lump, Denies change in breast shape, Denies change in hair, Denies change in skin color, Denies changing lesions, Denies dry skin, Denies excessive hair growth, Denies hair loss, Denies itching, Denies lesions, Denies nail changes, Denies new lesions, Denies nipple discharge, Denies non-healing lesions, Denies redness , Denies sensitivity to light, Denies rash, Denies skin pain, Denies skin ulcer , Denies sores, Denies stretch blum, Denies unusual bruising, Denies wounds, Denies yellowing of the skin, Denies other Neurologic: Denies abnormal hearing, Denies abnormal movements, Denies abnormal speech, Denies abnormal walking, Denies behavioral changes, Denies burning sensations, Denies confusion, Denies dizziness, Denies fainting, Denies frequent falls, Denies headache(s), Denies lack of coordination, Denies localized weakness, Denies loss of vision, Denies memory loss, Denies numbness, Denies other visual disturbances, Denies radiating pain, Denies restless legs, Denies convulsions, Denies seizure-like activity, Denies sensory deficit, Denies tingling, Denies tingling/numbness/burning sensations, Denies tremor(s), Denies unsteadiness, Denies weakness, Denies other Psychiatric: Denies abnormal sleep pattern, Denies anxiety, Denies behavioral changes, Denies change in appetite, Denies change in sex drive, Denies confusion , Denies depression, Denies difficulty concentrating, Denies hearing things others do not hear, Denies hopelessness, Denies irritability, Denies lack of enjoyment, Denies memory loss, Denies mood swings, Denies panic attacks, Denies paranoia, Denies seeing things others do not see, Denies sensing things others do not sense, Denies tactile hallucinations, Denies thoughts of hurting/killing others, Denies thoughts of hurting/killing yourself, Denies other Endocrine: Denies cold intolerance, Denies excessive sweating, Denies flushing, Denies heat intolerance, Denies increased hunger, Denies increased thirst, Denies increased urination, Denies rapid, pounding, or irregular heartbeat, Denies other Hematologic/Lymphatic: Denies easy bleeding, Denies easy bruising, Denies enlarged lymph nodes, Denies other Allergic/Immunologic: Denies GI upset with certain foods, Denies hives, Denies itchy eyes, Denies lip swelling, Denies seasonal runny nose, Denies throat swelling, Denies tongue swelling, Denies wheezing, Denies other PMFSH - History History Provided By: Patient - Medical History Medical History: Medical History (Last Updated 04/23/18 @ 17:47 by Vita Melo MD) Hx of fracture of femur (Acute) Hx of congestive heart failure (Acute) History of COPD (Acute) Hx of diabetes mellitus (Acute) Status post open reduction with internal fixation of fracture - Tobacco History Second Hand Smoke Exposure: No Tobacco Use In Past 30 Days: No Smoking Status: Former smoker Tobacco Type: Cigarettes - Alcohol History How Often Do You Have a Drink Containing Alcohol: Never - Substance Use History Substance History: No History of Abuse - Travel History Recent Travel in the [place] Within the Last 8 Weeks: No Recent Travel Out of the Country Within the Last 8 Weeks: No - Immunization History Tetanus Immunization: <5 Years Hx Influenza Vaccine This Season: Yes Medications and Allergies Active Medications: Active Medications Acetaminophen (Tylenol) 650 mg PO Q4H PRN PRN Reason: Headache, fever, pain 1-4 Al Hydroxide/Mg Hydroxide (Milk Of Magnesia Liq) 30 ml PO Q12H PRN PRN Reason: Mild Constipation Albuterol (Duoneb Neb (Prn)) 1 ampul NEB Q4HR NEB PRN PRN Reason: SHORTNESS OF BREATH Last Admin: 04/21/18 20:52 Dose: 1 ampul Aspirin (Aspirin) 325 mg PO DAILY [facility] Last Admin: 04/23/18 08:52 Dose: 325 mg Atorvastatin Calcium (Lipitor) 40 mg PO HS [facility] Last Admin: 04/22/18 20:41 Dose: Not Given Bisacodyl (Dulcolax Supp) 10 mg RECTAL DAILY PRN PRN Reason: SEVERE CONSITIPATION Carvedilol (Coreg) 3.125 mg PO BID [facility] Last Admin: 04/23/18 09:05 Dose: Not Given Dextrose (D50w Vial) 50 ml IV.PUSH UNSCH PRN PRN Reason: PER HYPOGLYCEMIA PROTOCOL Doxycycline Hyclate (Vibratab) 100 mg PO Q12HR [facility] Stop: 04/28/18 20:59 Last Admin: 04/23/18 08:53 Dose: 100 mg Fluticasone/Vilanterol (Breo Ellipta 100/25 Mcg Inh) 1 puff INH DAILY [facility] Last Admin: 04/23/18 13:13 Dose: 1 puff Glucagon (Glucagon Inj) 1 mg OTHER PRN PRN PRN Reason: for Hypoglycemia Protocol Heparin Sodium (Porcine) (Heparin Inj) 2,500 units IV.PUSH UNSCH PRN PRN Reason: aPTT 25-39 Last Admin: 04/23/18 13:24 Dose: 2,500 units Heparin Sodium (Porcine) (Heparin Inj) 5,000 units IV.PUSH UNSCH PRN PRN Reason: aPTT < 25 Heparin Sodium/Dextrose (Heparin/D5w 25,000 U/250 Ml) 25,000 unit in 250 mls @ 10 mls/hr IV.CONT TITRATE PRN; Protocol PRN Reason: Per Protocol Last Titration: 04/23/18 15:35 Dose: 0 unit/hr, 0 mls/hr Insulin Aspart (Novolog Insulin Correctional Sugar Inj) 0 unit SQ ACHS [facility]; Protocol Last Admin: 04/23/18 17:30 Dose: Not Given Lactulose (Lactulose Liq) 30 ml PO DAILY PRN PRN Reason: SEVERE CONSITIPATION Miscellaneous (Pill Splitter) 1 each OTHER UNSCH PRN PRN Reason: SEE LABEL COMMENTS Nitroglycerin (Nitro-Bid 2% Oint) 0.5 inch TOPICAL Q6HR [facility] Last Admin: 04/23/18 17:37 Dose: 0.5 inch Ondansetron HCl (Zofran Inj) 4 mg IV.PUSH Q6H PRN PRN Reason: NAUSEA OR VOMITING Sennosides (Senokot) 17.2 mg PO Q12H PRN PRN Reason: Moderate Constipation Sodium Chloride (Ns Flush) 2 ml IV.FLUSH UNSCH PRN PRN Reason: FLUSH AFTER USING IV ACCESS Last Admin: 04/21/18 21:11 Dose: 2 ml Allergies Allergy/AdvReac Type Severity Reaction Status Date / Time No Known Allergies Allergy Unverified 04/21/18 13:07 Home Medications Medication Instructions Recorded Confirmed Type albuterol sulfate 0.63 mg INHALATION QID PRN 04/21/18 04/21/18 History celecoxib [Celebrex] 200 mg PO DAILY 04/21/18 04/21/18 History furosemide [Lasix] 20 mg PO DAILY PRN 04/21/18 04/21/18 History metformin 1,000 mg PO DAILY 04/21/18 04/21/18 History metformin 500 mg PO DAILY 04/21/18 04/21/18 History pantoprazole 20 mg PO DAILY 04/21/18 04/21/18 History potassium chloride 10 meq PO DAILY PRN 04/21/18 04/21/18 History tiotropium bromide [Spiriva 2 puff INHALATION DAILY 04/21/18 04/21/18 History Respimat] Physical Exam Vital signs: Vital Signs 04/22/18 18:00 04/22/18 19:00 04/22/18 20:00 Temperature 98.1 F Pulse Rate 78 80 76 Respiratory Rate 18 Blood Pressure 104/62 Pulse Oximetry 95 04/22/18 21:00 04/22/18 22:00 04/22/18 23:00 Temperature Pulse Rate 76 70 68 Respiratory Rate Blood Pressure Pulse Oximetry 04/23/18 00:00 04/23/18 01:00 04/23/18 02:00 Temperature 97.8 F Pulse Rate 74 62 61 Respiratory Rate 18 Blood Pressure 119/73 Pulse Oximetry 95 04/23/18 03:00 04/23/18 04:00 04/23/18 05:00 Temperature 98 F Pulse Rate 67 66 68 Respiratory Rate 16 Blood Pressure 91/54 L Pulse Oximetry 93 L 04/23/18 06:00 04/23/18 07:23 04/23/18 08:00 Temperature 98.2 F Pulse Rate 87 71 71 Respiratory Rate 18 Blood Pressure 93/56 L Pulse Oximetry 95 04/23/18 09:00 04/23/18 10:00 04/23/18 11:00 Temperature Pulse Rate 70 70 73 Respiratory Rate Blood Pressure Pulse Oximetry 04/23/18 11:37 04/23/18 12:00 04/23/18 12:19 Temperature 97.9 F Pulse Rate 76 68 Respiratory Rate 18 Blood Pressure 110/72 Pulse Oximetry 96 04/23/18 13:00 04/23/18 14:00 04/23/18 15:00 Temperature 97.9 F Pulse Rate 74 76 88 Respiratory Rate 18 Blood Pressure 130/52 L Pulse Oximetry 04/23/18 17:00 04/23/18 17:12 Temperature 98 F Pulse Rate 84 80 Respiratory Rate 18 Blood Pressure 129/81 Pulse Oximetry 95 Intake & Output 04/22/18 04/23/18 04/23/18 18:59 06:59 18:59 Intake Total 480 / 480 490 / 490 100 / 100 Output Total 100 / 100 950 / 950 1070 / 1070 Balance 380 / 380 -460 / -460 -970 / -970 Weight 126.2 kg Intake: IV 250 / 250 Heparin/D5W 25,000 U/250 mL 25, 250 / 250 000 unit In 250 ml @ 1,000 UNIT /HR 10 mls/hr IV.CONT TITRATE PRN Rx#:[id number] Oral 480 / 480 240 / 240 100 / 100 Output: Urine 100 / 100 950 / 950 1070 / 1070 Other: Date of Last Bowel Movement 04/22/18 04/22/18 04/23/18 # Bowel Movements 1 2 - Constitutional no acute distress - Routine HEENT Exam Head: Present: normocephalic, atraumatic Eye: Present: EOMI, PERRL, normal accommodation ENT: Present: mucous membranes moist - Routine Neck Exam Present: supple, full ROM - Routine Respiratory Exam Present: CTA bilaterally - Routine Cardiovascular Exam Present: RRR - Routine Abdominal Exam Present: soft, normoactive bowel sounds - Routine Extremities Exam Present: edema, pulses intact. Absent: cyanosis, clubbing - Routine Skin Exam Present: intact - Routine Neurological Exam Present: alert, oriented X3, CN II-XII intact Assessment and Plan - Assessment (1) NSTEMI (non-ST elevated myocardial infarction) Code(s): I21.4 - Non-ST elevation (NSTEMI) myocardial infarction Status: Acute (2) CAD (coronary artery disease) Code(s): I25.10 - Atherosclerotic heart disease of [place] coronary artery without angina pectoris Status: Acute - Plan 73 y/o morbidly obese male with COPD presents with NSTEMI. He was found to have significant left main and 3 vessel CAD this afternoon. CABG is recommended. STS risk as follows: Risk Model and Variables - STS Adult Cardiac Surgery Database Version 2.81 RISK SCORES About the STS Risk Calculator Procedure: CAB Only Risk of Mortality: 2.362% Morbidity or Mortality: 20.728% Long Length of Stay: 10.19% Short Length of Stay: 27.542% Permanent Stroke: 0.908% Prolonged Ventilation: 15.814% DSW Infection: 1.204% Renal Failure: 3.716% Reoperation: 6.273% I discussed the risks and benefits of CABG and he agrees to proceed. Plan CABG in the morning. (2) CAD (coronary artery disease) Qualifiers: Coronary Disease-Associated Artery/Lesion type: [place] artery [place] vs. transplanted heart: [place] heart Associated angina: with unstable angina Qualified Code(s): I25.110 - Atherosclerotic heart disease of [place] coronary artery with unstable angina pectoris
--- NOTE | 2018-04-23 17:54 | MA ---
cc: Ted Oquendo MD DATE: 04/23/2018 PROCEDURE: 1. Left heart catheterization. 2. Coronary angiography. 3. Left ventriculogram. APPROACH: Right radial artery. COMPLICATIONS: None. ESTIMATED BLOOD LOSS: Minimal. INDICATIONS: Positive troponins for acute coronary syndrome. The risks and benefits of cardiac catheterization and possible PCI was discussed with the patient. He is agreeable to the procedure, consent was obtained. Timeout was performed. The patient and procedure and physician were identified. The patient received Versed 1 mg and fentanyl 50 mcg before the procedure for conscious sedation. The patient was prepped and draped in the normal fashion. 1% lidocaine was generously infiltrated into the radial region. The radial artery was accessed and a 6-[place] sheath was introduced without any difficulty. The sidearm was flushed with a cocktail of verapamil 2.5 mg and nitroglycerin 200 mcg. Selective coronary angiography and left ventriculogram was performed with a 5-[place] TIG catheter. All catheter exchanges were performed over a long J wire and the manifold double flushed in between all catheters exchanges. Multiple BOOTHE and BELIZE[place] with cranial and caudal angulations were obtained. Contrast injection into the left coronary system showed the left main to be large with a distal tapering stenosis 70% to 80%. The stenosis extended into the ostium of the circumflex and LAD. The left anterior descending artery had mild plaque in the proximal segment. The mid and apical LAD was without significant disease. A high takeoff diagonal artery was large and without significant disease. The circumflex artery is large and without significant disease. A high takeoff obtuse marginal branch/ramus branch was without significant disease. A smaller second obtuse marginal artery showed proximal 50% to 70% stenosis. The distal circumflex artery was without significant disease. The right coronary artery is a very large dominant vessel. The mid segment had a focal calcific 90% stenosis. The distal RCA, PDA and posterolateral branch was without significant disease. Left ventriculogram was performed in the BOOTHE projection. The left ventricular end diastolic pressure after coronary angiography was approximately 18 mmHg. Contrast injection into the left ventricle showed a low normal ejection fraction, approximately 50% by visual estimation. No significant mitral regurgitation is noted. Withdrawal of the catheter into the ascending aorta showed no gradient across the aortic valve. TOTAL CONTRAST USED: 50 mL At the end of procedure, the sheath was removed and TR band applied. The patient was previously on IV heparin before the catheterization. The ACT at the end of procedure was approximately 178 seconds. The sheath was removed and TR band applied. Good hemostasis was obtained. IMPRESSION: 1. Severe multivessel coronary artery disease including left main, 70% to 80% stenosis and mid 90% RCA stenosis. 2. Low normal ejection fraction of 50%. PLAN: 1. We will recommend coronary artery bypass surgery. 2. Restart heparin 1 hour after TR band removed. 3. CT surgery consult has been requested with Dr. Melo. The above discussed with Dr. Basurto. MD ROSALBA Sparks/nette , 05:10 PM , 05:21 PM
[2018-04-23] MEDS ORDERED: ceFAZolin Inj 2,000 MG in Sodium Chlor 0.9% Inj 80 ML IV.SIG SCH (18:00)
[2018-04-23] MEDS ORDERED: Iohexol 350 MG/ML 50 ML Vial (for Cath Lab) IVCONTRAST ONE (18:24)
[2018-04-23 19:14] LABS: Bilirubin,Urine Negative (Negative); Clarity,Urine Clear (Clear); Color,Urine Yellow (Yellw/Straw); Glucose,Urine (UA) Negative (Negative); Leukocyte Esterase,Urine Negative (Negative); Nitrite,Urine Negative (Negative)
--- NOTE | 2018-04-23 19:58 | US ---
EXAM DATE: 04/23/2018 7:55 PM EDT AGE/SEX: 73 years / Male INDICATIONS: PreOp cardiac surgery. CLINICAL DATA: This is the patient's initial encounter. Patient reports that signs and symptoms have been present for 1 day and indicates a pain score of 0/10. MEDICAL/SURGICAL HISTORY: Chronic obstructive pulmonary disease. Congestive heart failure. Diab etes. Femur fracture. . Fracture repair. COMPARISON: . TECHNIQUE: Venous ultrasound of both lower extremities was performed from the inguinal ligament to t he proximal calf. Real-time, color Doppler and spectral tracing, compression and augmentation techni ques were used. FINDINGS: Right Leg: Normal compression of the deep venous system from the inguinal region to the proximal pedro f. No echogenic clot is seen. Normal response of the venous system to augmentation and respiration. Left Leg: Normal compression of the deep venous system from the inguinal region to the proximal calf . No echogenic clot is seen. Normal response of the venous system to augmentation and respiration. Other: None. CONCLUSION: 1. The study is negative for bilateral lower extremity deep venous thrombosis. Electronically signed by: Pelon Oates MD 04/23/2018 7:57 PM EDT
--- NOTE | 2018-04-23 19:59 | US ---
EXAM DATE: 04/23/2018 7:54 PM EDT AGE/SEX: 73 years / Male INDICATIONS: PreOp cardiac surgery. CLINICAL DATA: This is the patient's initial encounter. Patient reports that signs and symptoms have been present for 1 day and indicates a pain score of 0/10. MEDICAL/SURGICAL HISTORY: Chronic obstructive pulmonary disease. Congestive heart failure. Diab etes. Femur fracture. . Fracture repair. COMPARISON: . VELOCITY PARAMETERS: ICA/CCA Ratio: Right 1.8 , Left 1.4 ICA: Right 106 cm/sec, Left 71.6 cm/sec CCA: Right 59.0 cm/sec, Left 49.9 cm/sec ECA: Right 115 cm/sec, Left 75.1 cm/sec Vertebral: Right 31.0 cm/sec antegrade, Left 30.2 cm/sec antegrade FINDINGS: Right Carotid: Mild arteriosclerotic plaque is visualized.The waveforms are within normal limits. Left Carotid: Mild arteriosclerotic plaque is visualized. The waveforms are within normal limits. Other: None. CONCLUSION: 1. Right Internal Carotid Artery: No hemodynamically significant stenosis. 2. Left Internal Carotid Artery: No hemodynamically significant stenosis. Electronically signed by: Pelon Oates MD 04/23/2018 7:58 PM EDT
--- NOTE | 2018-04-23 20:00 | US ---
EXAM DATE: 04/23/2018 7:57 PM EDT AGE/SEX: 73 years / Male INDICATIONS: PreOp cardiac surgery. CLINICAL DATA: This is the patient's initial encounter. Patient reports that signs and symptoms have been present for 1 day and indicates a pain score of 0/10. MEDICAL/SURGICAL HISTORY: Chronic obstructive pulmonary disease. Congestive heart failure. Diab etes. Femur fracture. . Fracture repair. COMPARISON: . MEASUREMENTS: RIGHT THIGH: Proximal:__10 mm Mid:__ 5 mm Distal:__4 mm LEFT THIGH: Proximal:__10 mm Mid:__6 mm Distal:__4 mm RIGHT CALF: Proximal:__4 mm Mid:__3 mm Distal:__2 mm LEFT CALF: Proximal:__3 mm Mid:__2 mm Distal:__2 mm FINDINGS: The venous system of the lower extremities are patent by color Doppler imaging. Measurements of the leg veins (in mm) are listed above. CONCLUSION: 1. Venous mapping as described above. Electronically signed by: Pelon Oates MD 04/23/2018 7:59 PM EDT
[2018-04-23 20:29] LABS: Albumin 3.3 g/dL (3.4-5.0); Anion Gap 11 meq/L (5-15); Aspartate Aminotransferase 56 U/L (15-37); Blood Urea Nitrogen 23 mg/dL (7-18); Calcium 8.5 mg/dL (8.5-10.1); Carbon Dioxide 27.3 meq/L (21.0-32.0); Chloride 103 meq/L (98-107); Glomerular Filtration Rate Greater Than 89 mL/min (>89); Glucose,Random 147 mg/dL (74-106); Potassium 3.7 meq/L (3.5-5.1); Sodium 141 meq/L (136-145)
[2018-04-23 20:30] LABS: Alanine Aminotransferase 54 U/L (12-78)
[2018-04-23 20:32] LABS: Alkaline Phosphatase 98 U/L (45-117)
[2018-04-23] MEDS: Mupirocin 2% Nasal Oint Topical Syringe EACH NARE SCH (21:28)
--- NOTE | 2018-04-23 22:11 | XR ---
EXAM DATE: 04/23/2018 9:43 PM EDT AGE/SEX: 73 years / Male INDICATIONS: Evaluate for pneumonia, pneumothorax or communicable disease. Pre op for CABG CLINICAL DATA: This is the patient's subsequent encounter. Patient reports that signs and symptoms h ave been present for 1 day and indicates a pain score of 0/10. MEDICAL/SURGICAL HISTORY: Cardiovascular disease. Chronic obstructive pulmonary disease. None. COMPARISON: Chest x-ray dated 04/21/2018. FINDINGS: The heart remains enlarged. Increased interstitial markings are stable. There is no significant herrera e compared to the previous examination. CONCLUSION: Persistent increased interstitial markings and cardiomegaly which are unchanged compared to previous examination. Electronically signed by: Pelon Oates MD 04/23/2018 10:10 PM EDT
[2018-04-23 22:23] LABS: Hemoglobin A1c 7.2 % (4.3-6.0)
[2018-04-23] MEDS ORDERED: Metoprolol Tartrate 25 MG Tablet PO ONE (22:55)
[2018-04-23] MEDS ORDERED: Chlorhexidine Gluconate 2% 1 Pack (2 Cloths) TOPICAL ONE (22:55)
[2018-04-24 06:12] LABS: Hematocrit 41.9 % (39.0-51.0); Hemoglobin 13.7 gm/dL (13.0-17.0); Mean Corpuscular HGB Conc 32.7 % (32.0-36.0); Mean Corpuscular Hemoglobin 26.8 pg (27.0-34.0); Mean Corpuscular Volume 81.9 fL (80.0-100.0); Mean Platelet Volume 9.3 fL (7.0-11.0); Platelet Count 184 th/mm3 (150-450); Red Blood Count 5.12 mil/mm3 (4.50-5.90); Red Cell Distribution Width 13.5 % (11.6-17.2); White Blood Count 9.3 th/mm3 (4.0-11.0)
[2018-04-24] MEDS ORDERED: Heparin - SQ 10,000 UNITS/ML Vial ONE (06:14)
[2018-04-24] MEDS ORDERED: MethylPREDNISolone Sod Succinate Inj 125 MG/2 ML Vial ONE (06:14)
[2018-04-24] MEDS ORDERED: Cardioplegic Irr Soln 2,000 ML IRRIGATION ONE (07:08)
[2018-04-24] MEDS ORDERED: Potassium Chloride Inj 40 MEQ/20 ML Vial ONE (07:08)
[2018-04-24] MEDS ORDERED: Heparin 10,000 UNITS/10 ML Vial (for IV use) ONE (07:09)
[2018-04-24] MEDS ORDERED: Albumin Human 25% Inj 50 ML IV.SIG ONE (07:10)
--- NOTE | 2018-04-24 07:49 | P.PN ---
Subjective Interval history: off the floor- went for CABG seen 5 pm- post op in CVICU - awake and alert on vent- 50% - ff all commands Physical Exam Vital signs: Vital Signs 04/23/18 08:00 04/23/18 09:00 04/23/18 10:00 Temperature 98.2 F Pulse Rate 71 70 70 Respiratory Rate 18 Blood Pressure 93/56 L Pulse Oximetry 95 04/23/18 11:00 04/23/18 11:37 04/23/18 12:00 Temperature Pulse Rate 73 76 Respiratory Rate Blood Pressure Pulse Oximetry 96 04/23/18 12:19 04/23/18 13:00 04/23/18 14:00 Temperature 97.9 F Pulse Rate 68 74 76 Respiratory Rate 18 Blood Pressure 110/72 Pulse Oximetry 04/23/18 15:00 04/23/18 17:00 04/23/18 17:12 Temperature 97.9 F 98 F Pulse Rate 88 84 80 Respiratory Rate 18 18 Blood Pressure 130/52 L 129/81 Pulse Oximetry 95 04/23/18 18:00 04/23/18 19:00 04/23/18 20:00 Temperature 98.2 F Pulse Rate 90 90 89 Respiratory Rate 18 Blood Pressure 127/60 Pulse Oximetry 95 04/23/18 21:00 04/23/18 21:28 04/23/18 22:00 Temperature Pulse Rate 106 H 86 Respiratory Rate Blood Pressure Pulse Oximetry 95 04/23/18 23:00 04/24/18 00:00 04/24/18 01:00 Temperature 98 F Pulse Rate 90 85 77 Respiratory Rate 18 Blood Pressure 115/57 L Pulse Oximetry 99 04/24/18 02:00 04/24/18 03:00 04/24/18 04:00 Temperature 98.4 F Pulse Rate 71 75 74 Respiratory Rate 18 Blood Pressure 118/60 Pulse Oximetry 96 04/24/18 05:00 04/24/18 06:00 Temperature Pulse Rate 64 68 Respiratory Rate Blood Pressure Pulse Oximetry Intake & Output 04/23/18 04/24/18 04/24/18 18:59 06:59 18:59 Intake Total 100 / 100 240 / 240 Output Total 1070 / 1070 1225 / 1225 Balance -970 / -970 -985 / -985 Weight 123.9 kg Intake: Oral 100 / 100 240 / 240 Output: Urine 1070 / 1070 1225 / 1225 Other: Date of Last Bowel Movement 04/23/18 04/23/18 # Bowel Movements 2 1 Narrative: awake and alert, ET in place, ff all commands anciteric chest wall- post op chest tube in place decrease breath sounds regular rhythm abdomen- soft left LE- post op elastic dressing in place clements in place moves all extremities spotnaenously - Urinary Catheter Management Indwelling Temp Sensing Catheter Cath placed during this visit: yes Reason for continuing: Hourly intake/output Insertion date: 04/24/18 Insertion time: 07:45 Results - Labs CBC & Chem 7: 04/25/18 04:15 04/25/18 04:15 Laboratory Results - last 24 hr 04/23/18 04/23/18 04/23/18 11:40 11:56 15:28 WBC RBC Hgb Hct MCV MCH MCHC RDW Plt Count MPV APTT 38.8 H Sodium Potassium Chloride Carbon Dioxide Anion Gap BUN Creatinine Estimated GFR POC Glucose 144 H 129 H Random Glucose Hemoglobin A1c Calcium Total Bilirubin AST ALT Alkaline Phosphatase Total Protein Albumin Urine Color Urine Clarity Urine pH Ur Specific Union Urine Protein Urine Glucose (UA) Urine Ketones Urine Occult Blood Urine Nitrate Urine Bilirubin Urine Urobilinogen Ur Leukocyte Esterase Urine RBC Urine WBC Micro UA Comment Ur Microscopic Review Urine Culture Comments Nasal Screen MRSA (PCR) Blood Type Blood Type Recheck Antibody Screen MTS Gel Crossmatch 04/23/18 04/23/18 04/23/18 17:09 18:20 18:20 WBC RBC Hgb Hct MCV MCH MCHC RDW Plt Count MPV APTT Sodium Potassium Chloride Carbon Dioxide Anion Gap BUN Creatinine Estimated GFR POC Glucose 115 H Random Glucose Hemoglobin A1c Calcium Total Bilirubin AST ALT Alkaline Phosphatase Total Protein Albumin Urine Color Yellow Urine Clarity Clear Urine pH 6.0 Ur Specific Union 1.040 H Urine Protein Negative Urine Glucose (UA) Negative Urine Ketones Negative Urine Occult Blood Negative Urine Nitrate Negative Urine Bilirubin Negative Urine Urobilinogen Less than 2 Ur Leukocyte Esterase Negative Urine RBC 1 Urine WBC 1 Micro UA Comment Culture not ind Ur Microscopic Review Not Reportable Urine Culture Comments Culture not ind Nasal Screen MRSA (PCR) Not detected Blood Type Blood Type Recheck Antibody Screen MTS Gel Crossmatch 04/23/18 04/23/18 04/23/18 18:50 18:50 18:50 WBC RBC Hgb Hct MCV MCH MCHC RDW Plt Count MPV APTT Sodium 141 Potassium 3.7 Chloride 103 Carbon Dioxide 27.3 Anion Gap 11 BUN 23 H Creatinine 0.74 Estimated GFR Greater than 89 POC Glucose Random Glucose 147 H Hemoglobin A1c 7.2 H Calcium 8.5 Total Bilirubin 0.5 AST 56 H ALT 54 Alkaline Phosphatase 98 Total Protein 7.0 Albumin 3.3 L Urine Color Urine Clarity Urine pH Ur Specific Union Urine Protein Urine Glucose (UA) Urine Ketones Urine Occult Blood Urine Nitrate Urine Bilirubin Urine Urobilinogen Ur Leukocyte Esterase Urine RBC Urine WBC Micro UA Comment Ur Microscopic Review Urine Culture Comments Nasal Screen MRSA (PCR) Blood Type O Positive Blood Type Recheck Not needed Antibody Screen Negative MTS Gel Crossmatch See Detail 04/23/18 04/24/18 04/24/18 20:32 04:59 04:59 WBC 9.3 RBC 5.12 Hgb 13.7 Hct 41.9 MCV 81.9 MCH 26.8 L MCHC 32.7 RDW 13.5 Plt Count 184 MPV 9.3 APTT 28.0 D Sodium Potassium Chloride Carbon Dioxide Anion Gap BUN Creatinine Estimated GFR POC Glucose 165 H Random Glucose Hemoglobin A1c Calcium Total Bilirubin AST ALT Alkaline Phosphatase Total Protein Albumin Urine Color Urine Clarity Urine pH Ur Specific Union Urine Protein Urine Glucose (UA) Urine Ketones Urine Occult Blood Urine Nitrate Urine Bilirubin Urine Urobilinogen Ur Leukocyte Esterase Urine RBC Urine WBC Micro UA Comment Ur Microscopic Review Urine Culture Comments Nasal Screen MRSA (PCR) Blood Type Blood Type Recheck Antibody Screen MTS Gel Crossmatch 04/24/18 05:14 WBC RBC Hgb Hct MCV MCH MCHC RDW Plt Count MPV APTT Sodium Potassium Chloride Carbon Dioxide Anion Gap BUN Creatinine Estimated GFR POC Glucose 146 H Random Glucose Hemoglobin A1c Calcium Total Bilirubin AST ALT Alkaline Phosphatase Total Protein Albumin Urine Color Urine Clarity Urine pH Ur Specific Union Urine Protein Urine Glucose (UA) Urine Ketones Urine Occult Blood Urine Nitrate Urine Bilirubin Urine Urobilinogen Ur Leukocyte Esterase Urine RBC Urine WBC Micro UA Comment Ur Microscopic Review Urine Culture Comments Nasal Screen MRSA (PCR) Blood Type Blood Type Recheck Antibody Screen MTS Gel Crossmatch - Imaging Impressions Chest X-Ray 04/23/18 00:00 CONCLUSION: Persistent increased interstitial markings and cardiomegaly which are unchanged compared to previous examination. Carotid Doppler Study 04/23/18 17:37 CONCLUSION: 1. Right Internal Carotid Artery: No hemodynamically significant stenosis. 2. Left Internal Carotid Artery: No hemodynamically significant stenosis. Lower Extremity Ultrasound 04/23/18 17:37 CONCLUSION: 1. Venous mapping as described above. Venous Doppler Study 04/23/18 17:37 CONCLUSION: 1. The study is negative for bilateral lower extremity deep venous thrombosis. - Procedures 05/14- CABG Assessment and Plan - Plan 73 YEARS OLD MALE ACS Non-ST elevated myocardial infarction S/P CABG 04/24 - aspirin, beta-robe, PATIENCE inhibitor, Lipitor, nitroglycerin, heparin IV - cardiology, CVS ff Hyperlipidemia -LDL was 177 -Patient started on Lipitor 40 mg daily Chronic obstructive pulmonary disease with likely acute exacerbation -Continue duo nebs every 4 hours as needed -Patient started on Brio -Continue doxycycline 100 mg every 12 hours for 7 days -We will defer steroids at this time due to acute myocardial infarction - will get a walke test prior to DC if qualifies for home 02 Interstitial lung disease -Recommended patient to obtain outpatient pulmonary referral -May need high resolution CT chest in the outpatient setting. Diabetes Melltius- A1C 7.2 -Accu-Cheks with sliding scale insulin -ADA/heart healthy diet when extubated - will d/w patient goals- when extubated - ff up with PCP- per - Dr. Cavazos - PCP DVT prophylaxis- resume in am
[2018-04-24] MEDS ORDERED: Clevidipine Inj 25 MG/50 ML VIAL IV.CONT PRN (11:49)
[2018-04-24] MEDS ORDERED: Dexmedetomidine Inj 200 MCG in Sodium Chlor 0.9% Inj 48 ML IV.CONT PRN (11:49)
[2018-04-24] MEDS ORDERED: Metoprolol Inj 5 MG/5 ML Vial IV.PUSH PRN (11:49)
[2018-04-24] MEDS ORDERED: Post-op Orders (for Pharmacy) OTHER STA (11:49)
[2018-04-24] MEDS ORDERED: Albumin Human 5% Inj 250 ML IV.SIG PRN (11:49)
[2018-04-24] MEDS ORDERED: RESP: Racemic Epinephrine 2.25% 0.5 ML Neb NEB PRN (11:49)
[2018-04-24] MEDS ORDERED: Potassium Chlor 20 mEq Premix 20 MEQ/100 ML PIGGYBACK IV.SIG PRN ×2 (11:49)
[2018-04-24] MEDS ORDERED: Magnesium Sulfate Inj 2 GM in Sodium Chlor 0.9% Inj 96 ML IV.SIG PRN ×4 (11:49)
[2018-04-24] MEDS ORDERED: hydrALAZINE HCl Inj 20 MG/ML Vial IV.PUSH PRN (11:49)
[2018-04-24] MEDS ORDERED: Insulin Regular (For Infusion) 100 UNIT in Sodium Chlor 0.9% Inj 99 ML IV.CONT PRN (11:49)
[2018-04-24] MEDS ORDERED: Dextrose 50% in Water 50 ML Vial IV.PUSH PRN (11:49)
[2018-04-24] MEDS ORDERED: Calcium Chloride Inj 1 GM/10 ML Syringe IV.PUSH PRN (11:49)
--- NOTE | 2018-04-24 11:59 | P.OP ---
- Preoperative Diagnosis (1) NSTEMI (non-ST elevated myocardial infarction) (2) CAD (coronary artery disease) - Postoperative Diagnosis (1) NSTEMI (non-ST elevated myocardial infarction) (2) CAD (coronary artery disease) Date of procedure: 04/24/18 Procedure: CABG x 3 BURR to LAD SVG to OM2 SVG to PDA EVH Anesthesia: TITOA Surgeon: Vita Melo MD Occupational Health Specialist: Omari Almazan Pathology: none sent Operation and Findings: The risks, benefits, complications, treatment options, and expected outcomes were discussed with the patient. The possibilities of reaction to medication, pulmonary aspiration, perforation of viscus, bleeding, recurrent infection, the need for additional procedures, failure to diagnose a condition, and creating a complication requiring transfusion or operation were discussed with the patient. The patient concurred with the proposed plan, giving informed consent. The site of surgery properly noted/marked. The patient was taken to Operating Room, identified as Hiren Martin and the procedure verified as CABG, EVH. A Time Out was held and the above information confirmed. Standard monitoring lines and Crook catheter were placed. General anesthesia was induced. The patient was prepped and draped in a sterile fashion. A median sternotomy was performed and electrocautery was used to obtain hemostasis. The left internal mammary artery was procured as a pedicle from the 7th rib to the 1st rib in the usual manner. Simultaneously left greater saphenous vein was procured from the left leg using a minimally invasive endoscopic technique. The vein was prepared for anastomosis and the leg wound was irrigated and closed in 2 layers. The pericardium was opened and a pericardial sling was created using interrupted 0 silk sutures. The patient was heparinized for cardiopulmonary bypass and the distal mammary pedicle was instrumented for anastomosis. The heart was instrumented for cardiopulmonary bypass in the usual manner. Antegrade blood cardioplegia was employed. The patient was placed on cardiopulmonary bypass. An aortic cross-clamp was applied and the heart was arrested using cold blood cardioplegia. Antegrade cardioplegia was administered after he each anastomosis. After adequate arrest, the distal right coronary circulation was investigated and the PDA was opened with a Squaxin blade and found to be a 1.5 millimeter good target. Saphenous vein was approximated to the PDA artery using a running 7 0 Prolene suture. The graft was measured for length and orientation and the proximal anastomosis was constructed to the ascending aorta using a running 5 0 Prolene suture after creating an aortotomy with a 5 millimeter punch. The 2nd circumflex marginal artery was then opened with a Squaxin blade and found to be a 1.5 millimeter good target. The OM2 artery was intramyocardial. Saphenous vein was approximated to the OM2 artery using a running 7 0 Prolene suture. The graft was measured for length and orientation and was suspended from the pericardium. The distal LAD was opened with a Squaxin blade and found to be a 1.5 millimeter good target. The left internal mammary artery was approximated to the LAD using a running 7 0 Prolene suture. The pedicle was attached to the epicardium using interrupted 5 0 silk suture. The patient was systemically rewarmed and received a hotshot dose of warm blood cardioplegia. The aorta was vented and the proximal anastomosis to the OM2 graft was accomplished using a running 5 0 Prolene suture after creating an aortotomy was a 5 millimeter punch. The cross-clamp was removed and all proximal and distal anastomoses were examined for hemostasis. Temporary atrial and ventricular pacing wires were positioned and brought out through the skin in the usual manner. The patient was paced at 80 beats per minute and weaned from cardiopulmonary bypass. Protamine was given. There was no adverse reaction. Decannulation was carried out without incident. Wound was checked for hemostasis which was obtained using electrocautery. A 36 British mediastinal and 32 British left pleural chest tubes were placed and secured to the skin with 0 silk suture. The sternum was closed with stainless steel wire. The fascia was closed with 1. PDS. The subcutaneous tissue was closed using a running 2-0 Vicryl suture. The skin was closed with 4-0 Monocryl. Sterile dressings were placed. At the end of the operation, all sponge, instruments, and needle counts were correct. The patient was transferred to the CVICU in stable condition. Findings: good distal targets XC: 63 min CPB: 78 min Drains: mediastinal x 1 pleural x 1 Complications: none Disposition: to CVICU in stable condition Pacing Wires: 2 atrial and 2 ventricular
[2018-04-24] MEDS: DOBUTamine 250 MG/250 ML Premx 250 MG/250 ML BAG IV.CONT SCH (12:17)
[2018-04-24] MEDS ORDERED: fentaNYL Citrate Inj 250 MCG/5 ML Ampul ONE (12:29)
--- NOTE | 2018-04-24 12:50 | XR ---
EXAM DATE: 04/24/2018 12:45 PM EDT AGE/SEX: 73 years / Male INDICATIONS: Cardiac disease. Post CABG. CLINICAL DATA: This is the patient's initial encounter. Patient reports that signs and symptoms have been present for 1 day and indicates a pain score of 0/10. MEDICAL/SURGICAL HISTORY: . Chronic obstructive pulmonary disease. Congestive heart failure. Di abetes. Femur fracture. . COMPARISON: [facility] [place], CHEST 1V SINGLE AP, 04/23/2018. . FINDINGS: Cardiomegaly, endotracheal tube and enteric tube noted as well as a mediastinal tube and left-sided c hest tube. Right jugular line tip overlies the expected location of the SVC. There are bilateral patc hy parenchymal infiltrates greatest in the left mid to lower lung zone. I do not see a pneumothorax. No definite effusion. Sternotomy wires are present. CONCLUSION: Postop CABG. Patchy bilateral infiltrates. Electronically signed by: Nash Gilbert MD 04/24/2018 12:48 PM EDT
[2018-04-24] MEDS: Insulin NovoLOG Aspart Correctional Sugar Inj SQ SCH ×2 (13:08→13:09)
[2018-04-24] MEDS: Mupirocin 2% Nasal Oint Topical Syringe EACH NARE SCH ×2 (13:09→21:08)
[2018-04-24] MEDS: Amiodarone 200 MG Tablet PO SCH ×2 (15:45→21:10)
[2018-04-24] MEDS: ceFAZolin Inj 2,000 MG in Sodium Chlor 0.9% Inj 80 ML IV.SIG SCH (16:17)
[2018-04-24] MEDS: Calcium Chloride Inj 1 GM in Sodium Chlor 0.9% Inj 100 ML IV.SIG PRN (17:54)
[2018-04-24] MEDS: Aspirin 325 MG Tablet PO SCH (18:48)
[2018-04-24] MEDS: fentaNYL Citrate Inj 100 MCG/2 ML Ampul IV.PUSH PRN ×2 (19:10→23:39)
[2018-04-24] MEDS: Potassium Chlor 20 mEq Premix 20 MEQ/100 ML PIGGYBACK IV.SIG PRN (19:11)
[2018-04-25] MEDS: ceFAZolin Inj 2,000 MG in Sodium Chlor 0.9% Inj 80 ML IV.SIG SCH ×4 (00:25→23:33)
[2018-04-25] MEDS: fentaNYL Citrate Inj 100 MCG/2 ML Ampul IV.PUSH PRN ×2 (00:29→04:44)
[2018-04-25] MEDS: Calcium Chloride Inj 1 GM in Sodium Chlor 0.9% Inj 100 ML IV.SIG PRN (01:10)
[2018-04-25] MEDS: DOBUTamine 250 MG/250 ML Premx 250 MG/250 ML BAG IV.CONT SCH ×3 (01:10→19:39)
[2018-04-25] MEDS: Potassium Chlor 20 mEq Premix 20 MEQ/100 ML PIGGYBACK IV.SIG PRN (01:11)
--- NOTE | 2018-04-25 04:08 | XR ---
EXAM DATE: 04/25/2018 3:55 AM EDT AGE/SEX: 73 years / Male INDICATIONS: Shortness of breath, possible pulmonary disease. CLINICAL DATA: This is the patient's subsequent encounter. Patient reports that signs and symptoms h ave been present for 2 days and indicates a pain score of 10/10. MEDICAL/SURGICAL HISTORY: Chronic obstructive pulmonary disease. Congestive heart failure. Di abetes. CABG. COMPARISON: [facility] – [place], [place], CHEST 1V SINGLE AP, 04/24/2018. . FINDINGS: Portable AP view of the chest demonstrates cardiac silhouette size at the upper limits for normal pos t median sternotomy. Endotracheal tube and nasogastric tube have been removed. Right IJ line, mediast inal drain, and left chest tube remain present. No pneumothorax is identified. There is elevation lef t hemidiaphragm with subsegmental atelectasis at the lung bases possible consolidation at the left diana ng base. No effusion is identified. CONCLUSION: 1. Under inflation with subsegmental atelectasis at the lung bases and possible consolidation at the left lung base. Appearance is similar to yesterday's examination. 2. Left chest tube remains present and no pneumothorax is visualized. Electronically signed by: Omari Rodriguez MD 04/25/2018 4:06 AM EDT
[2018-04-25 04:57] LABS: Hematocrit 39.8 % (39.0-51.0); Hemoglobin 12.7 gm/dL (13.0-17.0); Mean Corpuscular HGB Conc 31.9 % (32.0-36.0); Mean Corpuscular Hemoglobin 26.6 pg (27.0-34.0); Mean Corpuscular Volume 83.2 fL (80.0-100.0); Mean Platelet Volume 9.4 fL (7.0-11.0); Platelet Count 156 th/mm3 (150-450); Red Blood Count 4.79 mil/mm3 (4.50-5.90); Red Cell Distribution Width 13.6 % (11.6-17.2); White Blood Count 21.7 th/mm3 (4.0-11.0)
[2018-04-25 05:13] LABS: Anion Gap 9 meq/L (5-15); Blood Urea Nitrogen 19 mg/dL (7-18); Calcium 8.3 mg/dL (8.5-10.1); Carbon Dioxide 27.4 meq/L (21.0-32.0); Chloride 107 meq/L (98-107); Glomerular Filtration Rate Greater Than 89 mL/min (>89); Glucose,Random 112 mg/dL (74-106); Magnesium 2.3 mg/dL (1.5-2.5); Potassium 4.4 meq/L (3.5-5.1); Sodium 143 meq/L (136-145)
[2018-04-25] MEDS: Amiodarone 200 MG Tablet PO SCH ×3 (06:19→23:33)
--- NOTE | 2018-04-25 07:32 | P.PN ---
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 - equal clements removed this am currently on 50% V mask Physical Exam Vital signs: Vital Signs 04/24/18 12:13 04/24/18 12:17 04/24/18 12:20 Temperature 97.9 F 97.3 F L Pulse Rate 78 78 Respiratory Rate 12 12 Blood Pressure 111/53 L Pulse Oximetry 88 L 94 L 04/24/18 14:00 04/24/18 14:05 04/24/18 15:00 Temperature 98.0 F Pulse Rate 83 80 Respiratory Rate 12 17 Blood Pressure 108/55 L Pulse Oximetry 04/24/18 15:55 04/24/18 16:00 04/24/18 18:00 Temperature 97.4 F L Pulse Rate 79 86 Respiratory Rate 16 17 Blood Pressure 113/61 Pulse Oximetry 94 L 93 L 92 L 04/24/18 18:20 04/24/18 19:00 04/24/18 19:47 Temperature 97.6 F Pulse Rate 100 H Respiratory Rate 20 20 Blood Pressure 118/56 L Pulse Oximetry 91 L 04/24/18 20:00 04/24/18 21:20 04/24/18 23:00 Temperature 97.6 F 98.3 F Pulse Rate 99 H 92 H 105 H Respiratory Rate 20 20 20 Blood Pressure 118/56 L 106/61 Pulse Oximetry 95 04/25/18 00:28 04/25/18 00:47 04/25/18 01:26 Temperature 98.4 F Pulse Rate Respiratory Rate 20 20 Blood Pressure Pulse Oximetry 04/25/18 03:00 04/25/18 03:38 04/25/18 05:33 Temperature 97.7 F Pulse Rate 100 H 96 H Respiratory Rate 20 14 20 Blood Pressure 141/67 H Pulse Oximetry 96 Intake & Output 04/24/18 04/25/18 04/25/18 18:59 06:59 18:59 Intake Total 5400 / 5400 808.5 / 808.5 300 / 300 Output Total 4590 / 4590 1075 / 1075 Balance 810 / 810 -266.5 / -266.5 300 / 300 Weight 120.5 kg Intake: IV 1700 / 1700 808.5 / 808.5 300 / 300 DOBUTamine 250 MG/250 ML Premx 288.5 / 288.5 250 mg In 250 ml @ 2.5 MCG/KG/ MIN 18.585 mls/hr IV.CONT . [id number] ZAKIA Rx#:[id number] Precedex Inj 200 MCG In NS Inj 50 / 50 48 ML @ 0.2 MCG/KG/HR 6.19 mls/ hr IV.CONT TITRATE PRN Rx#: [id number] Heparin/D5W 25,000 U/250 mL 25, 250 / 250 000 unit In 250 ml @ 1,400 UNIT /HR 14 mls/hr IV.CONT TITRATE PRN Rx#:[id number] Ofirmev Inj 1,000 mg In 100 ml 100 / 100 100 / 100 100 / 100 @ 400 mls/hr IV.SIG Q6H ZAKIA Rx# :[id number] Calcium Chloride Inj 1 GM In NS 220 / 220 Inj 100 ML @ 100 mls/hr IV.SIG UNSCH PRN Rx#:[id number] LR 1000 mL Inj 1,000 ML @ 30 1000 / 1000 mls/hr IV.SIG .Q24H ZAKIA Rx#: [id number] KCl 20 mEq Premix Inj 20 meq In 100 / 100 200 / 200 100 ml @ 50 mls/hr IV.SIG UNSCH PRN Rx#:[id number] Ancef Inj 2,000 MG In NS Inj 80 200 / 200 100 / 100 ML @ 200 mls/hr IV.SIG Q8H ZAKIA Rx#:[id number] Anesthesia Amount 1900 / 1900 Other 800 / 800 Cell Saver Amount 1000 / 1000 Output: Estimated Blood Loss 2000 / 1999 Urine Amount (Catheter) 2290 / 2290 1075 / 1075 Indwelling Temp Sensing 2290 / 2290 1075 / 1075 Catheter Gastric Drainage 100 / 100 Orogastric Tube 100 / 100 Chest Tube Drainage 200 / 200 Pleural/Mediastinal 200 / 200 Other: Date of Last Bowel Movement 04/23/18 Narrative: awake and alert, speech clear anciteric chest wall- Prevena dressing, post op chest tube in place decrease breath sounds, no rales regular rhythm abdomen- soft left LE- post op elastic dressing in place moves all extremities spontaneously neuro- a x o x 3, clear speech CN intact motor - 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, 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 - Urinary Catheter Management Indwelling Temp Sensing Catheter Cath placed during this visit: yes Reason for continuing: Hourly intake/output Insertion date: 04/24/18 Insertion time: 07:45 Results - Labs CBC & Chem 7: 04/26/18 03:56 04/26/18 03:56 Laboratory Results - last 24 hr 04/23/18 04/24/18 04/24/18 18:50 13:30 14:18 WBC RBC Hgb Hct MCV MCH MCHC RDW Plt Count MPV Sodium Potassium Chloride Carbon Dioxide Anion Gap BUN Creatinine Estimated GFR POC Glucose 126 H 124 H Random Glucose Calcium Magnesium Blood Type O Positive Blood Type Recheck Not needed Antibody Screen Negative MTS Gel Crossmatch See Detail 04/24/18 04/24/18 04/24/18 15:18 16:30 17:12 WBC RBC Hgb Hct MCV MCH MCHC RDW Plt Count MPV Sodium Potassium Chloride Carbon Dioxide Anion Gap BUN Creatinine Estimated GFR POC Glucose 155 H 137 H 132 H Random Glucose Calcium Magnesium Blood Type Blood Type Recheck Antibody Screen MTS Gel Crossmatch 04/24/18 04/24/18 04/24/18 18:34 19:39 20:16 WBC RBC Hgb Hct MCV MCH MCHC RDW Plt Count MPV Sodium Potassium Chloride Carbon Dioxide Anion Gap BUN Creatinine Estimated GFR POC Glucose 116 H 123 H 138 H Random Glucose Calcium Magnesium Blood Type Blood Type Recheck Antibody Screen MTS Gel Crossmatch 04/24/18 04/24/18 04/24/18 21:27 22:05 23:21 WBC RBC Hgb Hct MCV MCH MCHC RDW Plt Count MPV Sodium Potassium Chloride Carbon Dioxide Anion Gap BUN Creatinine Estimated GFR POC Glucose 107 139 H 137 H Random Glucose Calcium Magnesium Blood Type Blood Type Recheck Antibody Screen MTS Gel Crossmatch 04/25/18 04/25/18 04/25/18 01:25 02:09 03:23 WBC RBC Hgb Hct MCV MCH MCHC RDW Plt Count MPV Sodium Potassium Chloride Carbon Dioxide Anion Gap BUN Creatinine Estimated GFR POC Glucose 116 H 114 H 127 H Random Glucose Calcium Magnesium Blood Type Blood Type Recheck Antibody Screen MTS Gel Crossmatch 04/25/18 04/25/18 04/25/18 04:15 04:15 04:23 WBC 21.7 H D RBC 4.79 Hgb 12.7 L Hct 39.8 MCV 83.2 MCH 26.6 L MCHC 31.9 L RDW 13.6 Plt Count 156 MPV 9.4 Sodium 143 Potassium 4.4 Chloride 107 Carbon Dioxide 27.4 Anion Gap 9 BUN 19 H Creatinine 0.79 Estimated GFR Greater than 89 POC Glucose 110 Random Glucose 112 H Calcium 8.3 L Magnesium 2.3 Blood Type Blood Type Recheck Antibody Screen MTS Gel Crossmatch 04/25/18 04/25/18 05:04 06:22 WBC RBC Hgb Hct MCV MCH MCHC RDW Plt Count MPV Sodium Potassium Chloride Carbon Dioxide Anion Gap BUN Creatinine Estimated GFR POC Glucose 127 H 96 Random Glucose Calcium Magnesium Blood Type Blood Type Recheck Antibody Screen MTS Gel Crossmatch - Imaging Impressions Chest X-Ray 04/24/18 11:49 CONCLUSION: Postop CABG. Patchy bilateral infiltrates. Chest X-Ray 04/25/18 05:00 CONCLUSION: 1. Under inflation with subsegmental atelectasis at the lung bases and possible consolidation at the left lung base. Appearance is similar to yesterday 's examination. 2. Left chest tube remains present and no pneumothorax is visualized. - Procedures 05/14- CABG Assessment and Plan - Plan 73 YEARS OLD MALE S/P CABG 04/24 ACS Non-ST elevated myocardial infarction - aspirin, Plavix - on amiodarone 400 mg po q 8 - cardiology, CVS ff Hyperlipidemia -LDL was 177 - started on Lipitor 40 mg daily Chronic obstructive pulmonary disease -Continue duo nebs every 4 hours as needed -Patient started on Brio -Continue doxycycline 100 mg every 12 hours for 7 days -We will defer steroids at this time due to acute myocardial infarction - will get a walk test prior to DC if qualifies for home 02 Interstitial lung disease -Recommended patient to obtain outpatient pulmonary referral -May need high resolution CT chest in the outpatient setting. - walk test prior to DC if qualifies for home 02 Diabetes Melltius- A1C 7.2 - good readings -Accu-Cheks with sliding scale insulin -ADA/heart healthy diet -d/w patient goals- - states he is on metformin 1 gm am 500 mg pm - sliding scale for now with insulin coverage - ff up with PCP- per - Dr. Cavazos - PCP DVT prophylaxis- early ambulation, SCDs
[2018-04-25] MEDS ORDERED: Dextrose 50% in Water 50 ML Vial IV.PUSH PRN ×2 (07:36→12:05)
[2018-04-25] MEDS ORDERED: Sod Phosphate/Sod Biphosphate (Adult) Enema 133 ML Bottle RECTAL PRN (07:36)
[2018-04-25] MEDS ORDERED: Bisacodyl 10 MG Supp RECTAL PRN (07:36)
--- NOTE | 2018-04-25 07:43 | P.PNCV ---
- Note Subjective/Hospital Course: Doing well post CABG. Dobutamine drip discontinued Gentle diuresis. Lasix 40 mg IV this morning Maintain chest tube to drainage Transfer CBC later today Incentive spirometry and pulmonary toiletry Objective: Vital Signs - 24 hr 04/24/18 12:13 04/24/18 12:17 04/24/18 12:20 Temperature 97.9 F 97.3 F L Pulse Rate 78 78 Respiratory Rate 12 12 Blood Pressure 111/53 L Pulse Oximetry 88 L 94 L 04/24/18 14:00 04/24/18 14:05 04/24/18 15:00 Temperature 98.0 F Pulse Rate 83 80 Respiratory Rate 12 17 Blood Pressure 108/55 L Pulse Oximetry 04/24/18 15:55 04/24/18 16:00 04/24/18 18:00 Temperature 97.4 F L Pulse Rate 79 86 Respiratory Rate 16 17 Blood Pressure 113/61 Pulse Oximetry 94 L 93 L 92 L 04/24/18 18:20 04/24/18 19:00 04/24/18 19:47 Temperature 97.6 F Pulse Rate 100 H Respiratory Rate 20 20 Blood Pressure 118/56 L Pulse Oximetry 91 L 04/24/18 20:00 04/24/18 21:20 04/24/18 23:00 Temperature 97.6 F 98.3 F Pulse Rate 99 H 92 H 105 H Respiratory Rate 20 20 20 Blood Pressure 118/56 L 106/61 Pulse Oximetry 95 04/25/18 00:28 04/25/18 00:47 04/25/18 01:26 Temperature 98.4 F Pulse Rate Respiratory Rate 20 20 Blood Pressure Pulse Oximetry 04/25/18 03:00 04/25/18 03:38 04/25/18 05:33 Temperature 97.7 F Pulse Rate 100 H 96 H Respiratory Rate 20 14 20 Blood Pressure 141/67 H Pulse Oximetry 96 Labs: Laboratory Results - last 12 hr 04/24/18 04/24/18 04/24/18 19:39 20:16 21:27 WBC RBC Hgb Hct MCV MCH MCHC RDW Plt Count MPV Sodium Potassium Chloride Carbon Dioxide Anion Gap BUN Creatinine Estimated GFR POC Glucose 123 H 138 H 107 Random Glucose Calcium Magnesium 04/24/18 04/24/18 04/25/18 22:05 23:21 01:25 WBC RBC Hgb Hct MCV MCH MCHC RDW Plt Count MPV Sodium Potassium Chloride Carbon Dioxide Anion Gap BUN Creatinine Estimated GFR POC Glucose 139 H 137 H 116 H Random Glucose Calcium Magnesium 04/25/18 04/25/18 04/25/18 02:09 03:23 04:15 WBC 21.7 H D RBC 4.79 Hgb 12.7 L Hct 39.8 MCV 83.2 MCH 26.6 L MCHC 31.9 L RDW 13.6 Plt Count 156 MPV 9.4 Sodium Potassium Chloride Carbon Dioxide Anion Gap BUN Creatinine Estimated GFR POC Glucose 114 H 127 H Random Glucose Calcium Magnesium 04/25/18 04/25/18 04/25/18 04:15 04:23 05:04 WBC RBC Hgb Hct MCV MCH MCHC RDW Plt Count MPV Sodium 143 Potassium 4.4 Chloride 107 Carbon Dioxide 27.4 Anion Gap 9 BUN 19 H Creatinine 0.79 Estimated GFR Greater than 89 POC Glucose 110 127 H Random Glucose 112 H Calcium 8.3 L Magnesium 2.3 04/25/18 06:22 WBC RBC Hgb Hct MCV MCH MCHC RDW Plt Count MPV Sodium Potassium Chloride Carbon Dioxide Anion Gap BUN Creatinine Estimated GFR POC Glucose 96 Random Glucose Calcium Magnesium Result Diagrams: 04/25/18 04:15 04/25/18 04:15 - Plan (2) CAD (coronary artery disease) (2) CAD (coronary artery disease) Qualifiers: Coronary Disease-Associated Artery/Lesion type: [place] artery [place] vs. transplanted heart: [place] heart Associated angina: with unstable angina Qualified Code(s): I25.110 - Atherosclerotic heart disease of [place] coronary artery with unstable angina pectoris
[2018-04-25] MEDS: Mupirocin 2% Nasal Oint Topical Syringe EACH NARE SCH ×2 (09:05→20:39)
[2018-04-25] MEDS: Multivitamin/Minerals Therapeutic Tablet PO SCH (09:09)
--- NOTE | 2018-04-25 12:55 | CATHPROC ---
[employer] HIS Report Study Information Study Number Admission Scheduled Start Study Start [id number] Apr 21 2018 2:46PM 04/23/2018 Apr 23 2018 3:41PM [place] Service Cardiac Catheterization Admit Source Facility Department Other [facility] [address] - Plate Slitter And Inspector Physician and Clinical Staff Initial Ted Bennett Merchant PatrollerMartina Palencia RN Merchant PatrollerQueta Martinez RN Other Russ, Britt,PRINT SHOP STENOGRAPHER TECH2 Recorder Alayna Valladares,MACHINE TECHNICIAN TECH2 Scrub Tarik BoltonRT(R) Procedures Performed Procedure Location (Site) Vessel Name Coronary Angiograms LCA Left Coronary Coronary Angiograms RCA Right Coronary L Heart Cath LV Gram-hand inj. LV LV Ventricle Equipment Time Certified Appliance Service Technician Description Size Mfg Part Number Used/Scraped TRANSDUCER, TRUWAVE [id number] 15:43 MARTINS VELASQUEZ * Used W/STOCKCOCK *[id number] 15:43 [email or web address] BLANKET,WARM AIR CCL * Used *[id number] 15:43 [email or web address] PACK, CCL CUSTOM * Used *[id number] 15:43 [email or web address] SUPPORT, ARTERIAL ADULT 73385 *[id number] Used BAND, RADIAL COMPRESSION TR [id number] 16:45 Activity [employer] MEDICAL 29CM Used LARGE 29 *[id number] 15:43 [employer] WIRE, EXCHANGE 260CM 3MMJ 260CM Used *[id number] 15:43 NAMIC MANIFOLD, 4 PORT * Used *[id number] 15:43 NYCOMED OMNIPAQUE, 350 MG, 150ML 150ML [id number] Used CATHETER, FR5 OPTITORQUE [id number] 15:53 TERUM[employer] FR 5 Used RADIAL TIG 4.0 *[id number] CATHETER, FR5 OPTITORQUE [id number] 16:25 TER[employer] FR 5 Used RADIAL TIG 4.0 *[id number] SHEATH, FR6 TRANSRADIAL [id number] 15:43 [employer] FR 6 Used SLENDER 10CM *[id number] History: Current Medications Medication Dosage/Unit Route Frequency Last Date/Time Taken ASA CARVEDILOL LISINOPRIL Albuterol Celebrex LASIX K-Dur History: Allergies Allergy Reaction No Known Allergies History: Risk Factors Family History of Hypertension Dyslipidemia Previous NV Previous Heart Failure Premature CAD No No No No Yes Prior Valve Prior PCI Prior CABG Surgery No No No Cerebrovascular Peripheral Artery Chronic Lung On Dialysis Diabetes Diabetes Therapy Disease Disease Disease No No No Yes Yes Oral History: Symptoms/Diagnosis Selection Items SOB History: Stress Tests Stress or Imaging Studies Performed No History: Other Current Smoker Method Quit Packs a Day Years Used Pack Years No Cigarettes 4 Years Ago 1 40 40 Labs Hgb (g/dl) Hct (%) Platelets (thousands) 11.60-17.00 35.00-51.00 150.00-450.00 13.3 41.4 182 Glucose (mg/dl) BUN (mg/dl) Creatinine (mg/dl) BUN:Creatinine (1:x) 74.00-106.00 7.00-18.00 0.50-1.30 10.00-20.00 160 15 0.8 18.8 Na (meq/l) K (meq/l) 136.00-145.00 3.50-5.10 140 4.2 INR (PTT:PT) 0.90-1.10 1.1 Troponin I (ng/ml) CPK (u/l) CPK-MB (ng/ML) 0.02-0.05 26.00-308.00 0.50-3.60 1.5 167 14.5 Medication Medication Total Dose (Bolus/Oral) Medication Total Dosage/Unit 1% XYLOCAINE 5 mL FENTANYL 50 mcg NITRO OINTMENT 0.5 inches OXYGEN 2 l/min RADIAL COCKTAIL 5 mL (Bolus) VERSED 1 mg Medications (Bolus/Oral) Medication Time Given Dosage/Unit Administered By Reason NITRO OINTMENT 04/23/2018 3:46:17 PM 0.5 inches Patient arrived on 0.5 inches NITRO OINTMENT via Peripheral IV. Right outer leg OXYGEN 04/23/2018 3:53:03 PM 2 l/min Queta Nettles 2 l/min OXYGEN given in lab by Queta Nettles, DEAN via Nasal. 1% XYLOCAINE 04/23/2018 4:20:48 PM 5 mL Ted Oquendo 5 mL 1% XYLOCAINE given in lab by Ted Oquendo in Right Radial via Subcutaneous. VERSED 04/23/2018 4:21:23 PM 1 mg Martina Wiley 1 mg VERSED given in lab by Martina Wiley, RN in Right Antecubital via Peripheral IV. Ordered by Ted Jarrell. FENTANYL 04/23/2018 4:21:46 PM 50 mcg Martina Wiley 50 mcg FENTANYL given in lab by Martina Wiley, RN in Right Antecubital via Peripheral IV. Ordered b y Ted Oquendo. Ntg 200mcg Verapamil 2.5mg Heparin RADIAL COCKTAIL 04/23/2018 4:23:07 PM 5 mL (Bolus) Ted Oquendo 3000U 5 mL (Bolus) RADIAL COCKTAIL given in lab by Ted Oquendo in Right Radial via Radial. Using [Solu tion Name]. Ordered by Ted Oquendo. Reason: Ntg 200mcg Verapamil 2.5mg Heparin 3000U. Medication (Drip) Medication Time Given Dosage/Unit Concentration/Unit Diluent (ml) Solutio n IV Solutions 04/23/2018 3:43:32 PM 0 mL (IV) 500 NaCl .9 Patient arrived on IV Solutions in Right Antecubital via Peripheral IV. Pump/Drip Flow = 20 ml/hr usi ng NaCl .9. Initial Case Assessment Cardiovascular HR Rhythm NIBP Chest Pain 64 sr 136/91 0 Circulatory - Right Pulses Dorsalis Pedis Femoral Radial 3 3 3 Scale (0,1,2,3,4,d) Circulatory - Left Pulses Dorsalis Pedis Femoral Radial 3 3 Scale (0,1,2,3,4,d) Neurological State Oriented to time-place- Alert Moves all extremities person Respiration - General Respiration Rate SpO2 (%) (B/min) 20 94 Chronological Log Time Study Chronological Log 15:41:46 Patient arrived via Bed. Heparin drip 14ml/hr discontinued at 15:35 15:41:47 Patient Name, D.O.B, / Armband Verified By R.N. 15:41:48 Consent signed by the physician and the patient and verified by the Plate Slitter And Inspector staff. 15:41:49 Pre-op and post- op instructions given; patient acknowledges understanding of instructions. 15:41:50 Verbal Stimulation=2 Physical Stimulation=2 Airway=2 Respiration=2 TOTAL=8. (0=absent, 1=li mited, 2=present) 15:43:17 Presedation assessment performed by Plate Slitter And Inspector RN. 15:43:19 Allens test performed on the right radial and ulnar artery. 15:43:21 Patient has been NPO for More than 6Hrs. 15:43:22 Skin Breakdown-none 15:43:23 Meka Prominences Protected 15:43:25 A # 20 IV was noted in the Antecubital (right). Grade = 0 15:43:32 Patient arrived on IV Solutions in Right Antecubital via Peripheral IV. Pump/Drip Flow = 20 ml/hr using NaCl .9. 15:43:48 History and physical on the chart or being dictated. 15:46:17 Patient arrived on 0.5 inches NITRO OINTMENT via Peripheral IV. Right outer leg Vitals capture started with the following parameters, Patient=Adult, Interval=5 min, Initial Pr hkggat=333 mmHg, 15:47:49 Deflation Rate=5 mmHg, Cuff placed on Left Arm 15:48:25 Reference ECG taken 15:48:31 HR=64 bpm, FRXF=299/91 mmhg, SpO2=95 %, Resp=13 B/min 15:48:37 History and physical on the chart or being dictated. Assessment: Initial Case, HR=64 BPM, Rhythm=sr, CHHZ=044/91 mmhg, Chest Pain=0 Right Pulses: Silas Ped=3, Femoral=3, Radial=3 15:48:40 Left Pulses: Silas Ped=3, Femoral=3 Neurological: State=Alert, Ox3, [place] Respiration: Resp=20 B/min, SpO2=94 % 15:53:03 2 l/min OXYGEN given in lab by Queta Nettles, DEAN via Nasal. 15:53:30 HR=63 bpm, AXVY=443/77 mmhg, SpO2=95.0 %, Resp=14 B/min, Raul=10 15:53:54 Right groin and right radial prepped with 2% chlorhexidine, and draped after a 3 min. waiti ng time. 15:58:29 HR=66 bpm, BYQC=306/90 mmhg, SpO2=96.0 %, Resp=20 B/min 15:59:52 Pressure channel 2 zeroed. 16:01:12 paged 16:03:30 HR=66 bpm, ICCW=230/84 mmhg, SpO2=95.0 %, Resp=14 B/min 16:08:31 HR=65 bpm, LKAK=340/76 mmhg, SpO2=95.0 %, Resp=12 B/min 16:13:32 HR=63 bpm, PXGC=806/80 mmhg, SpO2=95.0 %, Resp=11 B/min 16:16:23 MD arrived. 16:18:33 HR=78 bpm, BQVR=038/82 mmhg, SpO2=96.0 %, Resp=7 B/min Time Out. Correct patient, correct procedure, correct physician, labs, allergies, and equipment verified with laborer stores 16:20:30 team present. Fire risk assesment completed (see hard stop sheet for coding). Time Out Conc urred by MD and individual staff in procedure. 16:20:47 Case Start 16:20:48 5 mL 1% XYLOCAINE given in lab by Ted Oquendo in Right Radial via Subcutaneous. 16::23 1 mg VERSED given in lab by Martina Wiley, RN in Right Antecubital via Peripheral IV. Ord ered by Ted Oquendo. 50 mcg FENTANYL given in lab by Martina Wiley, RN in Right Antecubital via Peripheral IV. Ord ered by Azra, 16::46 Ted. 16:22:41 Access site was Right Radial Artery . A SHEATH, FR6 TRANSRADIAL SLENDER 10CM FR 6 was advanced into the Radial (right) using the Perc utaneous 16::51 technique. 5 mL (Bolus) RADIAL COCKTAIL given in lab by Ted Oquendo in Right Radial via Radial. Using [Solution Name]. 16:23:07 Ordered by Ted Oquendo. Reason: Ntg 200mcg Verapamil 2.5mg Heparin 3000U. 16:23:35 HR=76 bpm, ZDZP=284/77 mmhg, SpO2=93.0 %, Resp=20 B/min 16:28:34 HR=60 bpm, ZFNT=157/69 mmhg, SpO2=91.0 %, Resp=15 B/min A CATHETER, FR5 OPTITORQUE RADIAL TIG 4.0 FR 5 was advanced over a wire. OMNIPAQUE, 350 MG, 150 ML 150ML 16:31:16 was used for injections. 16:33:35 HR=77 bpm, FMED=872/68 mmhg, SpO2=91.0 %, Resp=0 B/min 16:33:45 The LCA was injected and visualized at various angles. OMNIPAQUE, 350 MG, 150ML 150ML used . Recorded Pressure: Ao, HR=80, Condition=Condition 1 16:33:52 (Aorta) Ao 114/68/91 16:35:21 The RCA was injected and visualized at various angles. OMNIPAQUE, 350 MG, 150ML 150ML used . 16:35:47 Vitals capture stopped. Recorded Pressure: Ao, HR=42, Condition=Condition 1 16:37:15 (Aorta) Ao 119/74/97 16:37:38 Reference ECG taken Vitals capture started with the following parameters, Patient=Adult, Interval=5 min, Initial Pr nfurol=782 mmHg, 16:37:44 Deflation Rate=5 mmHg, Cuff placed on Left Arm 16:38:14 Dr Melo called for CV consult. 16:38:24 HR=80 bpm, RTUO=235/72 mmhg, SpO2=94 %, Resp=20 B/min Recorded Pressure: LV, HR=84, Condition=Condition 1 16:38:58 (Left Ventricle) LV 119/2/16 16:39:19 The LV was manually injected with 10 cc's and visualized. OMNIPAQUE, 350 MG, 150ML 150ML u sed. Recorded Pressure: LV, Ao, HR=84, Condition=Condition 1 16:39:41 (Left Ventricle) LV 124/6/18, (Aorta) Ao 134/65/95 16:40:26 Catheter was removed 16:41:46 Activated Clotting Time Drawn 16:41:57 Case End (Physician broke scrub) 16:43:25 HR=69 bpm, JLRV=653/81 mmhg, SpO2=95.0 %, Resp=20 B/min 16:44:53 ACT (Normal Range 90-180) = 178 Radial Compression Device Used. 22 mLs of air placed in BAND, RADIAL COMPRESSION TR LARGE 29 2 9CM. Affected 16:45:18 hand 91 % O2 saturation. 16:48:28 LVRS=724/77 mmhg, SpO2=91.0 % 16:48:43 Vitals capture stopped. 16:50:19 Patient moved to stretcher 16:53:10 No case complications noted. 16:53:13 Cine recording checked. 16:53:14 Bedside Report will be given. 16:53:18 A Left Heart Cath was performed. 16:53:31 Patient transported to [facility]. End Study - Contrast Media Used In Study Contrast Total Opened (mL) Total Used (mL) Total Wasted (mL) Omnipaque 50 50 0 End Study - Maximum Contrast Load Max Contrast Load (mL) 788.6 End Study - Radiation Exposure Fluoro Time Fluoro Dose (mGy) Cine Dose (uGym2) (minutes) 3.5 1536 8863 End Study - Sheaths Sheaths Pulled By Sheath Hold Time (min) Tarik Bolton End Study - Patient Disposition Complications Transferred To Interventional Outcome No Telemetry Bed No attempt made
[2018-04-25] MEDS: Insulin NovoLOG Aspart Correctional Sugar Inj SQ SCH ×2 (17:29→20:38)
[2018-04-25] MEDS: Docusate Sodium 100 MG Capsule PO SCH (20:38)
--- NOTE | 2018-04-25 23:48 | ECG ---
Date Performed: 04/25/2018 Time Performed: 08:32:18 PTAGE: 73 years EKG: CONSIDER ACUTE ST ELEVATION [place] Sinus rhythm Mild lateral ST elevation, CONSIDER ACUTE INFARCT Abnormal ECG PREVIOUS TRACING : 04/22/2018 07.59 Compared to previous tracing, mild elevation laterally now more prominent DOCTOR: Dl Garcias Interpretating Date/Time 04/25/2018 23:46:44
[2018-04-26] MEDS: Insulin NovoLOG Aspart Correctional Sugar Inj SQ SCH ×5 (03:58→21:24)
[2018-04-26 04:24] LABS: Baso # (Auto) 0.1 th/mm3 (0.0-0.2); Baso % (Auto) 0.4 % (0.0-2.0); Hematocrit 39.3 % (39.0-51.0); Hemoglobin 12.9 gm/dL (13.0-17.0); Lymph # (Auto) 1.9 th/mm3 (1.0-4.8); Lymph % (Auto) 7.2 % (9.0-44.0); Mean Corpuscular HGB Conc 32.7 % (32.0-36.0); Mean Corpuscular Hemoglobin 26.8 pg (27.0-34.0); Mean Platelet Volume 9.8 fL (7.0-11.0); Mono # (Auto) 3.3 th/mm3 (0.0-0.9); Mono % (Auto) 12.6 % (0.0-8.0); Neut # (Auto) 21.1 th/mm3 (1.8-7.7); Neut % (Auto) 79.8 % (16.0-70.0); Platelet Count 178 th/mm3 (150-450); White Blood Count 26.4 th/mm3 (4.0-11.0)
[2018-04-26 04:59] LABS: Calcium 8.1 mg/dL (8.5-10.1); Carbon Dioxide 27.4 meq/L (21.0-32.0); Magnesium 2.2 mg/dL (1.5-2.5); Potassium 4.5 meq/L (3.5-5.1)
[2018-04-26 06:03] LABS: Platelet Estimate Normal (Normal); Platelet Morphology Normal (Normal)
[2018-04-26] MEDS: Amiodarone 200 MG Tablet PO SCH ×3 (06:17→21:25)
--- NOTE | 2018-04-26 08:04 | P.PNCV ---
- Note Subjective/Hospital Course: 04/25 Doing well post CABG. Dobutamine drip discontinued Gentle diuresis. Lasix 40 mg IV this morning Maintain chest tube to drainage Transfer CBC later today Incentive spirometry and pulmonary toiletry 04/26 Clinically and hemodynamically well Continue with gentle diuresis Aggressive pulmonary toiletry and ambulation Maintain chest tube to drainage. Reevaluation for removal in a.m. Ambulate Objective: Vital Signs - 24 hr 04/25/18 11:00 04/25/18 11:32 04/25/18 11:40 Temperature 98.4 F Pulse Rate 90 90 Respiratory Rate 16 18 Blood Pressure 119/64 Pulse Oximetry 91 L 92 L 04/25/18 12:06 04/25/18 15:00 04/25/18 15:57 Temperature 98.1 F Pulse Rate 90 Respiratory Rate 16 16 Blood Pressure 125/58 L Pulse Oximetry 92 L 4 L 04/25/18 16:00 04/25/18 16:28 04/25/18 17:00 Temperature Pulse Rate 93 H 95 H 94 H Respiratory Rate 18 Blood Pressure Pulse Oximetry 93 L 04/25/18 18:00 04/25/18 19:00 04/25/18 20:00 Temperature 97.8 F Pulse Rate 94 H 90 90 Respiratory Rate 18 Blood Pressure 107/62 Pulse Oximetry 91 L 91 L 04/25/18 20:11 04/25/18 20:12 04/25/18 21:00 Temperature Pulse Rate 94 H 86 Respiratory Rate 20 Blood Pressure Pulse Oximetry 93 L 04/25/18 22:00 04/25/18 23:00 04/26/18 00:00 Temperature 98.2 F Pulse Rate 86 82 84 Respiratory Rate 16 Blood Pressure 98/59 L Pulse Oximetry 91 L 04/26/18 01:00 04/26/18 02:00 04/26/18 03:00 Temperature 98.0 F Pulse Rate 86 84 87 Respiratory Rate 18 Blood Pressure 106/58 L Pulse Oximetry 90 L 04/26/18 04:00 04/26/18 05:00 04/26/18 06:00 Temperature Pulse Rate 86 85 85 Respiratory Rate Blood Pressure Pulse Oximetry 04/26/18 07:00 Temperature Pulse Rate 82 Respiratory Rate Blood Pressure Pulse Oximetry Labs: Laboratory Results - last 12 hr 04/23/18 04/25/18 04/26/18 18:50 20:34 03:48 WBC RBC Hgb Hct MCV MCH MCHC RDW Plt Count MPV Prelim Diff (Auto) Neut % (Auto) Lymph % (Auto) [place] % (Auto) Eos % (Auto) Baso % (Auto) Neut # (Auto) Lymph # (Auto) [place] # (Auto) Eos # (Auto) Baso # (Auto) WBC Differential Diff Scan Differential Comment Platelet Estimate Platelet Morphology Sodium Potassium Chloride Carbon Dioxide Anion Gap BUN Creatinine Estimated GFR POC Glucose 238 H 184 H Random Glucose Calcium Magnesium MTS Gel Crossmatch See Detail 04/26/18 04/26/18 03:56 03:56 WBC 26.4 H RBC 4.80 Hgb 12.9 L Hct 39.3 MCV 82.0 MCH 26.8 L MCHC 32.7 RDW 14.0 Plt Count 178 MPV 9.8 Prelim Diff (Auto) Slide review pending Neut % (Auto) 79.8 H Lymph % (Auto) 7.2 L [place] % (Auto) 12.6 H Eos % (Auto) 0.0 Baso % (Auto) 0.4 Neut # (Auto) 21.1 H Lymph # (Auto) 1.9 [place] # (Auto) 3.3 H Eos # (Auto) 0.0 Baso # (Auto) 0.1 WBC Differential . Diff Scan Auto diff confirmed Differential Comment . Platelet Estimate Normal Platelet Morphology Normal Sodium 136 Potassium 4.5 Chloride 102 Carbon Dioxide 27.4 Anion Gap 7 BUN 30 H Creatinine 1.00 Estimated GFR 73 L POC Glucose Random Glucose 180 H Calcium 8.1 L Magnesium 2.2 MTS Gel Crossmatch Result Diagrams: 04/26/18 03:56 04/26/18 03:56 - Plan (2) CAD (coronary artery disease) (2) CAD (coronary artery disease) Qualifiers: Coronary Disease-Associated Artery/Lesion type: [place] artery [place] vs. transplanted heart: [place] heart Associated angina: with unstable angina Qualified Code(s): I25.110 - Atherosclerotic heart disease of [place] coronary artery with unstable angina pectoris
--- NOTE | 2018-04-26 08:55 | P.PNIM ---
Subjective Interval history: Follow-up for shortness of breath. Stable, shortness of breath stable, chest tube in place. No fever or chills. Good urine output. Physical Exam Vital signs: Vital Signs 04/25/18 11:00 04/25/18 11:32 04/25/18 11:40 Temperature 98.4 F Pulse Rate 90 90 Respiratory Rate 16 18 Blood Pressure 119/64 Pulse Oximetry 91 L 92 L 04/25/18 12:06 04/25/18 15:00 04/25/18 15:57 Temperature 98.1 F Pulse Rate 90 Respiratory Rate 16 16 Blood Pressure 125/58 L Pulse Oximetry 92 L 4 L 04/25/18 16:00 04/25/18 16:28 04/25/18 17:00 Temperature Pulse Rate 93 H 95 H 94 H Respiratory Rate 18 Blood Pressure Pulse Oximetry 93 L 04/25/18 18:00 04/25/18 19:00 04/25/18 20:00 Temperature 97.8 F Pulse Rate 94 H 90 90 Respiratory Rate 18 Blood Pressure 107/62 Pulse Oximetry 91 L 91 L 04/25/18 20:11 04/25/18 20:12 04/25/18 21:00 Temperature Pulse Rate 94 H 86 Respiratory Rate 20 Blood Pressure Pulse Oximetry 93 L 04/25/18 22:00 04/25/18 23:00 04/26/18 00:00 Temperature 98.2 F Pulse Rate 86 82 84 Respiratory Rate 16 Blood Pressure 98/59 L Pulse Oximetry 91 L 04/26/18 01:00 04/26/18 02:00 04/26/18 03:00 Temperature 98.0 F Pulse Rate 86 84 87 Respiratory Rate 18 Blood Pressure 106/58 L Pulse Oximetry 90 L 04/26/18 04:00 04/26/18 05:00 04/26/18 06:00 Temperature Pulse Rate 86 85 85 Respiratory Rate Blood Pressure Pulse Oximetry 04/26/18 07:00 04/26/18 08:00 Temperature 97.8 F Pulse Rate 82 85 Respiratory Rate 20 Blood Pressure 107/59 L Pulse Oximetry 92 L Intake & Output 04/25/18 04/26/18 04/26/18 18:59 06:59 18:59 Intake Total 1726.5 / 1726.5 720 / 720 100 / 100 Output Total 1190 / 1190 400 / 400 140 / 140 Balance 536.5 / 536.5 320 / 320 -40 / -40 Weight 122.5 kg Intake: IV 766.5 / 766.5 100 / 100 DOBUTamine 250 MG/250 ML Premx 211.5 / 211.5 250 mg In 250 ml @ 2.5 MCG/KG/ MIN 18.585 mls/hr IV.CONT . [id number] ZAKIA Rx#:[id number] NovoLIN R (IV Infusion) 100 55 / 55 UNIT In NS Inj 99 ML @ 3 UNITS/ HR 3 mls/hr IV.CONT TITRATE PRN Rx#:[id number] Ofirmev Inj 1,000 mg In 100 ml 100 / 100 @ 400 mls/hr IV.SIG Q6H ZAKIA Rx# :[id number] Ancef Inj 2,000 MG In NS Inj 80 300 / 300 100 / 100 ML @ 200 mls/hr IV.SIG Q8H ZAKIA Rx#:[id number] Oral 960 / 960 720 / 720 Output: Urine 950 / 950 400 / 400 Chest Tube Drainage 240 / 240 140 / 140 Pleural/Mediastinal 240 / 240 140 / 140 Narrative: Not in distress Anicteric Regular rate and rhythm, no murmurs Sterile dressings in place, chest tube in place, clear breath sounds otherwise Abdomen soft, nontender Left lower extremity dressings in place Alert awake and oriented 3, no focal deficits. - Urinary Catheter Management Indwelling Temp Sensing Catheter Cath placed during this visit: yes Reason for continuing: Hourly intake/output Insertion date: 04/24/18 Insertion time: 07:45 Results - Labs CBC & Chem 7: 04/26/18 03:56 04/26/18 03:56 Laboratory Results - last 24 hr 04/23/18 04/25/18 04/25/18 18:50 08:59 11:49 WBC RBC Hgb Hct MCV MCH MCHC RDW Plt Count MPV Prelim Diff (Auto) Neut % (Auto) Lymph % (Auto) [place] % (Auto) Eos % (Auto) Baso % (Auto) Neut # (Auto) Lymph # (Auto) [place] # (Auto) Eos # (Auto) Baso # (Auto) WBC Differential Diff Scan Differential Comment Platelet Estimate Platelet Morphology Sodium Potassium Chloride Carbon Dioxide Anion Gap BUN Creatinine Estimated GFR POC Glucose 126 H 251 H Random Glucose Calcium Magnesium MTS Gel Crossmatch See Detail 04/25/18 04/25/18 04/25/18 12:36 13:35 14:52 WBC RBC Hgb Hct MCV MCH MCHC RDW Plt Count MPV Prelim Diff (Auto) Neut % (Auto) Lymph % (Auto) [place] % (Auto) Eos % (Auto) Baso % (Auto) Neut # (Auto) Lymph # (Auto) [place] # (Auto) Eos # (Auto) Baso # (Auto) WBC Differential Diff Scan Differential Comment Platelet Estimate Platelet Morphology Sodium Potassium Chloride Carbon Dioxide Anion Gap BUN Creatinine Estimated GFR POC Glucose 275 H 197 H 115 H Random Glucose Calcium Magnesium MTS Gel Crossmatch 04/25/18 04/25/18 04/26/18 17:15 20:34 03:48 WBC RBC Hgb Hct MCV MCH MCHC RDW Plt Count MPV Prelim Diff (Auto) Neut % (Auto) Lymph % (Auto) [place] % (Auto) Eos % (Auto) Baso % (Auto) Neut # (Auto) Lymph # (Auto) [place] # (Auto) Eos # (Auto) Baso # (Auto) WBC Differential Diff Scan Differential Comment Platelet Estimate Platelet Morphology Sodium Potassium Chloride Carbon Dioxide Anion Gap BUN Creatinine Estimated GFR POC Glucose 152 H 238 H 184 H Random Glucose Calcium Magnesium MTS Gel Crossmatch 04/26/18 04/26/18 04/26/18 03:56 03:56 08:11 WBC 26.4 H RBC 4.80 Hgb 12.9 L Hct 39.3 MCV 82.0 MCH 26.8 L MCHC 32.7 RDW 14.0 Plt Count 178 MPV 9.8 Prelim Diff (Auto) Slide review pending Neut % (Auto) 79.8 H Lymph % (Auto) 7.2 L [place] % (Auto) 12.6 H Eos % (Auto) 0.0 Baso % (Auto) 0.4 Neut # (Auto) 21.1 H Lymph # (Auto) 1.9 [place] # (Auto) 3.3 H Eos # (Auto) 0.0 Baso # (Auto) 0.1 WBC Differential . Diff Scan Auto diff confirmed Differential Comment . Platelet Estimate Normal Platelet Morphology Normal Sodium 136 Potassium 4.5 Chloride 102 Carbon Dioxide 27.4 Anion Gap 7 BUN 30 H Creatinine 1.00 Estimated GFR 73 L POC Glucose 179 H Random Glucose 180 H Calcium 8.1 L Magnesium 2.2 MTS Gel Crossmatch - Procedures 04/24- CABG Assessment and Plan - Plan Mr. Martin is a pleasant 73-year-old male with a history of COPD who presents to the emergency department due to shortness of breath as well as worsening cough, head pressure, hypertension, found to have non-ST elevated myocardial infarction, went for left heart cardiac catheterization was found to have a three-vessel and severe left main coronary artery disease Coronary artery disease, non-ST elevated myocardial infarction-status post CABG 04/24/18, continue aspirin, Plavix, amiodarone, statins. Cardiology and CVS following. Continue Lasix per CVS. Hyperlipidemia -LDL was 177, continue Lipitor. Chronic obstructive pulmonary disease -Continue duo nebs every 4 hours as needed, continue Brio, doxycycline for 7 days, no series of this time status post OK. Will need respiratory walk on discharge. Interstitial lung disease -Recommended patient to obtain outpatient pulmonary referral with high- resolution CT scan. Diabetes Melltius- A1C 7.2, stable, Accu-Cheks with sliding scale insulin. Electrolyte protocol DVT prophylaxis- early ambulation, SCDs
[2018-04-26] MEDS: Polyethylene Glycol 3350 17 GM Packet PO SCH (08:56)
[2018-04-26] MEDS: Docusate Sodium 100 MG Capsule PO SCH ×2 (08:57→21:25)
[2018-04-26] MEDS: Multivitamin/Minerals Therapeutic Tablet PO SCH (08:57)
[2018-04-26] MEDS: Furosemide 40 MG Tablet PO SCH ×2 (08:57→18:15)
[2018-04-26] MEDS: DOBUTamine 250 MG/250 ML Premx 250 MG/250 ML BAG IV.CONT SCH ×2 (08:58→23:24)
[2018-04-26] MEDS: Mupirocin 2% Nasal Oint Topical Syringe EACH NARE SCH ×2 (08:58→23:25)
--- NOTE | 2018-04-26 11:52 | P.DCO ---
- Diagnosis (2) CAD (coronary artery disease) - Physical Therapy Order: Evaluate and treat, Improve ambulation - Home Health Nursing Order: Signs/symptoms of disease process, Oxygen administration education, Wound care and dressing changes, Nursing assessment with vital signs - Certification I have seen patient Hiren Martin on 04/26/18. My clinical findings support the need for the requested home health care services because: Limited mobility due to disease progression, Patient has SOB I certify that my clinical findings support that this patient is homebound because: Post-op weakness (2) CAD (coronary artery disease) Qualifiers: Coronary Disease-Associated Artery/Lesion type: [place] artery [place] vs. transplanted heart: [place] heart Associated angina: with unstable angina Qualified Code(s): I25.110 - Atherosclerotic heart disease of [place] coronary artery with unstable angina pectoris
[2018-04-27] MEDS: Insulin NovoLOG Aspart Correctional Sugar Inj SQ SCH ×5 (05:06→20:12)
[2018-04-27] MEDS: Amiodarone 200 MG Tablet PO SCH ×3 (05:06→21:02)
[2018-04-27] MEDS: Polyethylene Glycol 3350 17 GM Packet PO SCH (08:53)
[2018-04-27] MEDS: Docusate Sodium 100 MG Capsule PO SCH ×2 (08:54→20:11)
[2018-04-27] MEDS: Multivitamin/Minerals Therapeutic Tablet PO SCH (08:54)
[2018-04-27] MEDS: Mupirocin 2% Nasal Oint Topical Syringe EACH NARE SCH (08:55)
[2018-04-27] MEDS: Furosemide 40 MG Tablet PO SCH ×2 (09:01→17:02)
--- NOTE | 2018-04-27 09:21 | P.PNCV ---
- Note Subjective/Hospital Course: 04/25 Doing well post CABG. Dobutamine drip discontinued Gentle diuresis. Lasix 40 mg IV this morning Maintain chest tube to drainage Transfer CBC later today Incentive spirometry and pulmonary toiletry 04/26 Clinically and hemodynamically well Continue with gentle diuresis Aggressive pulmonary toiletry and ambulation Maintain chest tube to drainage. Reevaluation for removal in a.m. Ambulate 04/27 Doing well Ambulating with assistance Chest tubes and pacing wires removed today Weaning O2 as tolerated Discharge planning Objective: Vital Signs - 24 hr 04/26/18 10:00 04/26/18 10:23 04/26/18 11:00 Temperature 98 F Pulse Rate 86 87 Respiratory Rate 19 19 Blood Pressure 114/59 L Pulse Oximetry 91 L 04/26/18 12:00 04/26/18 13:00 04/26/18 13:04 Temperature Pulse Rate 91 H 90 Respiratory Rate 19 Blood Pressure Pulse Oximetry 04/26/18 14:00 04/26/18 15:00 04/26/18 16:00 Temperature 98.5 F Pulse Rate 82 88 88 Respiratory Rate 20 Blood Pressure 109/66 Pulse Oximetry 93 L 04/26/18 16:24 04/26/18 17:35 04/26/18 18:00 Temperature Pulse Rate 81 Respiratory Rate 17 Blood Pressure Pulse Oximetry 93 L 04/26/18 19:00 04/26/18 19:56 04/26/18 19:57 Temperature 98.2 F Pulse Rate 81 79 Respiratory Rate 18 16 Blood Pressure 121/70 Pulse Oximetry 93 L 96 04/26/18 20:00 04/26/18 21:00 04/26/18 22:00 Temperature Pulse Rate 78 80 78 Respiratory Rate Blood Pressure Pulse Oximetry 93 L 04/26/18 23:00 04/27/18 00:00 04/27/18 01:00 Temperature 97.9 F Pulse Rate 76 76 74 Respiratory Rate 18 Blood Pressure 103/60 Pulse Oximetry 96 04/27/18 02:00 04/27/18 03:00 04/27/18 04:00 Temperature 98.2 F Pulse Rate 72 65 72 Respiratory Rate 16 Blood Pressure 127/67 Pulse Oximetry 96 04/27/18 05:00 04/27/18 06:00 04/27/18 07:55 Temperature Pulse Rate 72 72 73 Respiratory Rate 18 Blood Pressure Pulse Oximetry 94 L Labs: Laboratory Results - last 12 hr 04/27/18 04/27/18 02:33 08:46 POC Glucose 163 H 226 H Result Diagrams: 04/26/18 03:56 04/26/18 03:56 - Plan (2) CAD (coronary artery disease) (2) CAD (coronary artery disease) Qualifiers: Coronary Disease-Associated Artery/Lesion type: [place] artery [place] vs. transplanted heart: [place] heart Associated angina: with unstable angina Qualified Code(s): I25.110 - Atherosclerotic heart disease of [place] coronary artery with unstable angina pectoris
[2018-04-27] MEDS: DOBUTamine 250 MG/250 ML Premx 250 MG/250 ML BAG IV.CONT SCH (09:41)
--- NOTE | 2018-04-27 10:59 | P.PN ---
Subjective Interval history: Follow up MVD s/p CABG April 27, 2018-patient seen and examined; denies any chest pain, shortness of breath. Afebrile. Plan to d/c chest tube Physical Exam Vital signs: Vital Signs 04/26/18 11:00 04/26/18 12:00 04/26/18 13:00 Temperature 98 F Pulse Rate 87 91 H 90 Respiratory Rate 19 Blood Pressure 114/59 L Pulse Oximetry 91 L 04/26/18 13:04 04/26/18 14:00 04/26/18 15:00 Temperature 98.5 F Pulse Rate 82 88 Respiratory Rate 19 20 Blood Pressure 109/66 Pulse Oximetry 93 L 04/26/18 16:00 04/26/18 16:24 04/26/18 17:35 Temperature Pulse Rate 88 Respiratory Rate 17 Blood Pressure Pulse Oximetry 93 L 04/26/18 18:00 04/26/18 19:00 04/26/18 19:56 Temperature 98.2 F Pulse Rate 81 81 Respiratory Rate 18 Blood Pressure 121/70 Pulse Oximetry 93 L 96 04/26/18 19:57 04/26/18 20:00 04/26/18 21:00 Temperature Pulse Rate 79 78 80 Respiratory Rate 16 Blood Pressure Pulse Oximetry 93 L 04/26/18 22:00 04/26/18 23:00 04/27/18 00:00 Temperature 97.9 F Pulse Rate 78 76 76 Respiratory Rate 18 Blood Pressure 103/60 Pulse Oximetry 96 04/27/18 01:00 04/27/18 02:00 04/27/18 03:00 Temperature 98.2 F Pulse Rate 74 72 65 Respiratory Rate 16 Blood Pressure 127/67 Pulse Oximetry 96 04/27/18 04:00 04/27/18 05:00 04/27/18 06:00 Temperature Pulse Rate 72 72 72 Respiratory Rate Blood Pressure Pulse Oximetry 04/27/18 07:55 Temperature Pulse Rate 73 Respiratory Rate 18 Blood Pressure Pulse Oximetry 94 L Intake & Output 04/26/18 04/27/18 04/27/18 18:59 06:59 18:59 Intake Total 820 / 820 480 / 480 Output Total 1155 / 1155 760 / 760 Balance -335 / -335 -280 / -280 Weight 122 kg Intake: IV 100 / 100 Ancef Inj 2,000 MG In NS Inj 80 100 / 100 ML @ 200 mls/hr IV.SIG Q8H ZAKIA Rx#:[id number] Oral 720 / 720 480 / 480 Output: Urine 855 / 855 700 / 700 Chest Tube Drainage 300 / 300 60 / 60 Pleural/Mediastinal 300 / 300 60 / 60 Narrative: GENERAL: NAD SKIN: Warm and dry. HEAD: Normocephalic. EYES: No scleral icterus. No injection or drainage. NECK: Supple, trachea midline. No JVD or lymphadenopathy. CARDIOVASCULAR: Regular rate and rhythm without murmurs, gallops, or rubs. RESPIRATORY: Breath sounds equal bilaterally. No accessory muscle use. chest tube in place GASTROINTESTINAL: Abdomen soft, non-tender, nondistended. MUSCULOSKELETAL: No cyanosis, or edema. BACK: Nontender without obvious deformity. No CVA tenderness.. - Urinary Catheter Management Indwelling Temp Sensing Catheter Cath placed during this visit: yes Reason for continuing: Hourly intake/output Insertion date: 04/24/18 Insertion time: 07:45 Results - Labs CBC & Chem 7: 04/26/18 03:56 04/26/18 03:56 Laboratory Results - last 24 hr 04/26/18 04/26/18 04/26/18 11:49 16:41 21:16 POC Glucose 217 H 169 H 174 H 04/27/18 04/27/18 02:33 08:46 POC Glucose 163 H 226 H - Procedures 04/24- CABG Assessment and Plan - Assessment (1) S/P CABG (coronary artery bypass graft) Code(s): Z95.1 - Presence of aortocoronary bypass graft Status: Acute (2) CAD (coronary artery disease) Code(s): I25.10 - Atherosclerotic heart disease of [place] coronary artery without angina pectoris Status: Acute (3) NSTEMI (non-ST elevated myocardial infarction) Code(s): I21.4 - Non-ST elevation (NSTEMI) myocardial infarction Status: Acute - Plan 73 years old man with Coronary artery disease Non-ST elevated myocardial infarction Multi-vessel disease status post CABG 04/24/18 continue aspirin, Plavix, amiodarone, statins. Continue Lasix per [facility]. Chest tube to be removed today PT to treat Hyperlipidemia continue Lipitor. Chronic obstructive pulmonary disease Continue duo nebs every 4 hours as needed, continue Brio, doxycycline for 7 days Will need respiratory walk on discharge. Interstitial lung disease Recommended patient to obtain outpatient pulmonary referral with high- resolution CT scan. Diabetes Melltius- A1C 7.2, stable, Accu-Cheks with sliding scale insulin. Electrolyte protocol DVT prophylaxis- early ambulation, SCDs (2) CAD (coronary artery disease) Qualifiers: Coronary Disease-Associated Artery/Lesion type: [place] artery [place] vs. transplanted heart: [place] heart Associated angina: with unstable angina Qualified Code(s): I25.110 - Atherosclerotic heart disease of [place] coronary artery with unstable angina pectoris
[2018-04-28] MEDS: DOBUTamine 250 MG/250 ML Premx 250 MG/250 ML BAG IV.CONT SCH (00:47)
[2018-04-28] MEDS: Insulin NovoLOG Aspart Correctional Sugar Inj SQ SCH ×5 (02:51→20:19)
[2018-04-28] MEDS: Amiodarone 200 MG Tablet PO SCH ×3 (05:02→21:01)
[2018-04-28 06:11] LABS: Baso # (Auto) 0.1 th/mm3 (0.0-0.2); Baso % (Auto) 0.5 % (0.0-2.0); Eos # (Auto) 0.1 th/mm3 (0.0-0.4); Eos % (Auto) 0.7 % (0.0-4.0); Hematocrit 36.1 % (39.0-51.0); Hemoglobin 11.9 gm/dL (13.0-17.0); Lymph % (Auto) 12.6 % (9.0-44.0); Mean Corpuscular HGB Conc 32.9 % (32.0-36.0); Mean Corpuscular Volume 82.1 fL (80.0-100.0); Mean Platelet Volume 9.3 fL (7.0-11.0); Mono # (Auto) 1.7 th/mm3 (0.0-0.9); Mono % (Auto) 10.7 % (0.0-8.0); Neut % (Auto) 75.5 % (16.0-70.0); Platelet Count 203 th/mm3 (150-450); Red Blood Count 4.39 mil/mm3 (4.50-5.90); Red Cell Distribution Width 13.7 % (11.6-17.2); White Blood Count 15.9 th/mm3 (4.0-11.0)
[2018-04-28 06:40] LABS: Albumin 2.5 g/dL (3.4-5.0); Anion Gap 9 meq/L (5-15); Aspartate Aminotransferase 40 U/L (15-37); Blood Urea Nitrogen 29 mg/dL (7-18); Calcium 7.9 mg/dL (8.5-10.1); Carbon Dioxide 28.5 meq/L (21.0-32.0); Chloride 100 meq/L (98-107); Glomerular Filtration Rate Greater Than 89 mL/min (>89); Glucose,Random 137 mg/dL (74-106); Potassium 4.3 meq/L (3.5-5.1); Sodium 137 meq/L (136-145)
[2018-04-28 06:42] LABS: Alanine Aminotransferase 33 U/L (12-78)
[2018-04-28 06:44] LABS: Alkaline Phosphatase 100 U/L (45-117); Total Protein 6.1 g/dL (6.4-8.2)
[2018-04-28] MEDS: Furosemide 40 MG Tablet PO SCH ×2 (08:12→17:09)
[2018-04-28] MEDS: Docusate Sodium 100 MG Capsule PO SCH ×2 (08:12→20:22)
[2018-04-28] MEDS: Polyethylene Glycol 3350 17 GM Packet PO SCH (08:12)
[2018-04-28] MEDS: Multivitamin/Minerals Therapeutic Tablet PO SCH (08:13)
--- NOTE | 2018-04-28 10:40 | P.PN ---
Subjective Interval history: Follow up MVD s/p CABG April 27, 2018-patient seen and examined; denies any chest pain, shortness of breath. Afebrile. Plan to d/c chest tube April 28, 2018-patient seen and examined, no acute event overnight. Positive for BM. Denies any chest pain, dizziness or shortness of breath. Physical Exam Vital signs: Vital Signs 04/27/18 11:00 04/27/18 11:57 04/27/18 12:26 Temperature 98.2 F Pulse Rate 76 81 Respiratory Rate 18 18 Blood Pressure 145/87 H Pulse Oximetry 93 L 04/27/18 12:32 04/27/18 13:12 04/27/18 15:00 Temperature 97.6 F Pulse Rate 82 79 74 Respiratory Rate 18 Blood Pressure 123/63 Pulse Oximetry 95 04/27/18 15:42 04/27/18 16:30 04/27/18 17:17 Temperature Pulse Rate 74 74 77 Respiratory Rate Blood Pressure Pulse Oximetry 04/27/18 19:00 04/27/18 19:59 04/27/18 20:00 Temperature 98.2 F Pulse Rate 88 82 Respiratory Rate 20 Blood Pressure 124/62 Pulse Oximetry 92 L 95 04/27/18 21:00 04/27/18 22:00 04/27/18 23:00 Temperature 98.4 F Pulse Rate 80 75 78 Respiratory Rate 18 Blood Pressure 132/66 Pulse Oximetry 94 L 04/28/18 00:00 04/28/18 01:00 04/28/18 02:00 Temperature Pulse Rate 75 73 71 Respiratory Rate Blood Pressure Pulse Oximetry 04/28/18 03:00 04/28/18 03:57 04/28/18 05:00 Temperature 98.1 F Pulse Rate 74 69 69 Respiratory Rate 20 Blood Pressure 119/64 Pulse Oximetry 94 L 04/28/18 05:53 04/28/18 07:00 04/28/18 08:00 Temperature 97.9 F Pulse Rate 69 75 75 Respiratory Rate 18 Blood Pressure 120/81 Pulse Oximetry 94 L 04/28/18 08:29 04/28/18 09:00 04/28/18 09:24 Temperature Pulse Rate 75 74 Respiratory Rate Blood Pressure Pulse Oximetry 94 L Intake & Output 04/27/18 04/28/18 04/28/18 18:59 06:59 18:59 Intake Total 600 / 600 720 / 720 Output Total 900 / 900 1100 / 1100 Balance -300 / -300 -380 / -380 Weight 122.5 kg Intake: Oral 600 / 600 720 / 720 Output: Urine 900 / 900 1100 / 1100 Other: Date of Last Bowel Movement 04/27/18 # Bowel Movements 1 Narrative: GENERAL: NAD SKIN: Warm and dry. HEAD: Normocephalic. EYES: No scleral icterus. No injection or drainage. NECK: Supple, trachea midline. No JVD or lymphadenopathy. CARDIOVASCULAR: Regular rate and rhythm without murmurs, gallops, or rubs. RESPIRATORY: Breath sounds equal bilaterally. No accessory muscle use. GASTROINTESTINAL: Abdomen soft, non-tender, nondistended. MUSCULOSKELETAL: No cyanosis, or edema. BACK: Nontender without obvious deformity. No CVA tenderness.. - Urinary Catheter Management Indwelling Temp Sensing Catheter Cath placed during this visit: yes Reason for continuing: Hourly intake/output Insertion date: 04/24/18 Insertion time: 07:45 Results - Labs CBC & Chem 7: 04/28/18 05:50 04/28/18 05:50 Laboratory Results - last 24 hr 04/27/18 04/27/18 04/27/18 11:28 16:49 19:05 WBC RBC Hgb Hct MCV MCH MCHC RDW Plt Count MPV Neut % (Auto) Lymph % (Auto) [place] % (Auto) Eos % (Auto) Baso % (Auto) Neut # (Auto) Lymph # (Auto) [place] # (Auto) Eos # (Auto) Baso # (Auto) WBC Differential Differential Comment Sodium Potassium Chloride Carbon Dioxide Anion Gap BUN Creatinine Estimated GFR POC Glucose 157 H 137 H 274 H Random Glucose Calcium Total Bilirubin AST ALT Alkaline Phosphatase Total Protein Albumin 04/28/18 04/28/18 04/28/18 02:45 05:50 05:50 WBC 15.9 H RBC 4.39 L Hgb 11.9 L Hct 36.1 L MCV 82.1 MCH 27.0 MCHC 32.9 RDW 13.7 Plt Count 203 MPV 9.3 Neut % (Auto) 75.5 H Lymph % (Auto) 12.6 [place] % (Auto) 10.7 H Eos % (Auto) 0.7 Baso % (Auto) 0.5 Neut # (Auto) 12.0 H Lymph # (Auto) 2.0 [place] # (Auto) 1.7 H Eos # (Auto) 0.1 Baso # (Auto) 0.1 WBC Differential . Differential Comment Auto diff final Sodium 137 Potassium 4.3 Chloride 100 Carbon Dioxide 28.5 Anion Gap 9 BUN 29 H Creatinine 0.81 Estimated GFR Greater than 89 POC Glucose 159 H Random Glucose 137 H Calcium 7.9 L Total Bilirubin 0.7 AST 40 H ALT 33 Alkaline Phosphatase 100 Total Protein 6.1 L D Albumin 2.5 L 04/28/18 07:48 WBC RBC Hgb Hct MCV MCH MCHC RDW Plt Count MPV Neut % (Auto) Lymph % (Auto) [place] % (Auto) Eos % (Auto) Baso % (Auto) Neut # (Auto) Lymph # (Auto) [place] # (Auto) Eos # (Auto) Baso # (Auto) WBC Differential Differential Comment Sodium Potassium Chloride Carbon Dioxide Anion Gap BUN Creatinine Estimated GFR POC Glucose 145 H Random Glucose Calcium Total Bilirubin AST ALT Alkaline Phosphatase Total Protein Albumin - Procedures 04/24- CABG Assessment and Plan - Assessment (1) S/P CABG (coronary artery bypass graft) Code(s): Z95.1 - Presence of aortocoronary bypass graft Status: Acute (2) CAD (coronary artery disease) Code(s): I25.10 - Atherosclerotic heart disease of [place] coronary artery without angina pectoris Status: Acute (3) NSTEMI (non-ST elevated myocardial infarction) Code(s): I21.4 - Non-ST elevation (NSTEMI) myocardial infarction Status: Acute - Plan 73 years old man with Coronary artery disease Non-ST elevated myocardial infarction Multi-vessel disease status post CABG 04/24/18 continue aspirin, Plavix, amiodarone, statins. Continue Lasix per [facility]. PT to treat Hyperlipidemia continue Lipitor. Chronic obstructive pulmonary disease Continue duo nebs every 4 hours as needed, continue Brio, doxycycline for 7 days check respiratory walk today 04/28/18. Interstitial lung disease Recommended patient to obtain outpatient pulmonary referral with high- resolution CT scan. Diabetes Melltius- A1C 7.2, stable, Accu-Cheks with sliding scale insulin. Electrolyte protocol DVT prophylaxis- early ambulation, SCDs (2) CAD (coronary artery disease) Qualifiers: Coronary Disease-Associated Artery/Lesion type: [place] artery [place] vs. transplanted heart: [place] heart Associated angina: with unstable angina Qualified Code(s): I25.110 - Atherosclerotic heart disease of [place] coronary artery with unstable angina pectoris
--- NOTE | 2018-04-28 12:56 | P.PNCV ---
- Note Subjective/Hospital Course: 04/25 Doing well post CABG. Dobutamine drip discontinued Gentle diuresis. Lasix 40 mg IV this morning Maintain chest tube to drainage Transfer CBC later today Incentive spirometry and pulmonary toiletry 04/26 Clinically and hemodynamically well Continue with gentle diuresis Aggressive pulmonary toiletry and ambulation Maintain chest tube to drainage. Reevaluation for removal in a.m. Ambulate 04/27 Doing well Ambulating with assistance Chest tubes and pacing wires removed today Weaning O2 as tolerated Discharge planning 04/28 Doing well Ambulating independently Weaning O2 as tolerated. Remains on 1 L nasal cannula Evaluate for home O2 Possible discharge in a.m. Objective: Vital Signs - 24 hr 04/27/18 13:12 04/27/18 15:00 04/27/18 15:42 Temperature 97.6 F Pulse Rate 79 74 74 Respiratory Rate 18 Blood Pressure 123/63 Pulse Oximetry 95 04/27/18 16:30 04/27/18 17:17 04/27/18 19:00 Temperature 98.2 F Pulse Rate 74 77 88 Respiratory Rate 20 Blood Pressure 124/62 Pulse Oximetry 92 L 04/27/18 19:59 04/27/18 20:00 04/27/18 21:00 Temperature Pulse Rate 82 80 Respiratory Rate Blood Pressure Pulse Oximetry 95 04/27/18 22:00 04/27/18 23:00 04/28/18 00:00 Temperature 98.4 F Pulse Rate 75 78 75 Respiratory Rate 18 Blood Pressure 132/66 Pulse Oximetry 94 L 04/28/18 01:00 04/28/18 02:00 04/28/18 03:00 Temperature 98.1 F Pulse Rate 73 71 74 Respiratory Rate 20 Blood Pressure 119/64 Pulse Oximetry 94 L 04/28/18 03:57 04/28/18 05:00 04/28/18 05:53 Temperature Pulse Rate 69 69 69 Respiratory Rate Blood Pressure Pulse Oximetry 04/28/18 07:00 04/28/18 08:00 04/28/18 08:29 Temperature 97.9 F Pulse Rate 75 75 Respiratory Rate 18 Blood Pressure 120/81 Pulse Oximetry 94 L 94 L 04/28/18 09:00 04/28/18 09:24 04/28/18 11:00 Temperature 98.2 F Pulse Rate 75 74 68 Respiratory Rate 18 Blood Pressure 115/57 L Pulse Oximetry 94 L 04/28/18 11:54 04/28/18 12:33 Temperature Pulse Rate 73 74 Respiratory Rate Blood Pressure Pulse Oximetry Labs: Laboratory Results - last 12 hr 04/28/18 04/28/18 04/28/18 02:45 05:50 05:50 WBC 15.9 H RBC 4.39 L Hgb 11.9 L Hct 36.1 L MCV 82.1 MCH 27.0 MCHC 32.9 RDW 13.7 Plt Count 203 MPV 9.3 Neut % (Auto) 75.5 H Lymph % (Auto) 12.6 [place] % (Auto) 10.7 H Eos % (Auto) 0.7 Baso % (Auto) 0.5 Neut # (Auto) 12.0 H Lymph # (Auto) 2.0 [place] # (Auto) 1.7 H Eos # (Auto) 0.1 Baso # (Auto) 0.1 WBC Differential . Differential Comment Auto diff final Sodium 137 Potassium 4.3 Chloride 100 Carbon Dioxide 28.5 Anion Gap 9 BUN 29 H Creatinine 0.81 Estimated GFR Greater than 89 POC Glucose 159 H Random Glucose 137 H Calcium 7.9 L Total Bilirubin 0.7 AST 40 H ALT 33 Alkaline Phosphatase 100 Total Protein 6.1 L D Albumin 2.5 L 04/28/18 04/28/18 07:48 11:51 WBC RBC Hgb Hct MCV MCH MCHC RDW Plt Count MPV Neut % (Auto) Lymph % (Auto) [place] % (Auto) Eos % (Auto) Baso % (Auto) Neut # (Auto) Lymph # (Auto) [place] # (Auto) Eos # (Auto) Baso # (Auto) WBC Differential Differential Comment Sodium Potassium Chloride Carbon Dioxide Anion Gap BUN Creatinine Estimated GFR POC Glucose 145 H 127 H Random Glucose Calcium Total Bilirubin AST ALT Alkaline Phosphatase Total Protein Albumin Result Diagrams: 04/28/18 05:50 04/28/18 05:50 - Plan (2) CAD (coronary artery disease) (2) CAD (coronary artery disease) Qualifiers: Coronary Disease-Associated Artery/Lesion type: [place] artery [place] vs. transplanted heart: [place] heart Associated angina: with unstable angina Qualified Code(s): I25.110 - Atherosclerotic heart disease of [place] coronary artery with unstable angina pectoris
[2018-04-29] MEDS: Insulin NovoLOG Aspart Correctional Sugar Inj SQ SCH ×3 (02:28→12:04)
[2018-04-29] MEDS: Amiodarone 200 MG Tablet PO SCH (05:00)
[2018-04-29] MEDS: Docusate Sodium 100 MG Capsule PO SCH (09:59)
[2018-04-29] MEDS: Multivitamin/Minerals Therapeutic Tablet PO SCH (10:01)
[2018-04-29] MEDS: Furosemide 40 MG Tablet PO SCH (10:08)
[2018-04-29] MEDS: Polyethylene Glycol 3350 17 GM Packet PO SCH (11:31)
--- NOTE | 2018-04-29 11:44 | P.DS ---
Date of admission: 04/21/18 14:46 Primary care physician: Emeterio Cavazos MD Attending physician on discharge: Brigette Martin Anticipated date of discharge: 04/29/18 Brief History from admission: Mr. Martin is a pleasant 73-year-old male with a history of COPD who presents to the emergency department due to shortness of breath as well as worsening cough and head pressure. On , 04/18/2018, patient went to play golf and after playing 9 holes he returned home. Patient had some shortness of breath and head pressure but improved. However this morning he started feeling shortness of breath again. He denies any fever or chills. He denies any chest pain, abdominal pain, nausea or vomiting. No changes in bowel or bladder habits. Chest x-ray shows interstitial prominence and patchy basilar parenchymal densities. His first troponin was 0.08. BNP 89. Of note, patient has Breo for COPD as well as Spiriva. He takes Spiriva daily but not Breo. Past medical history: COPD, diabetes, GERD Past surgical history: Left femur surgery in 2013 Social history. Patient denies using tobacco, alcohol, illicit drugs. Father had cancer. DS: Medications - Discharge Medications Prescriptions: amiodarone 200 mg PO Q12HR #28 tab aspirin 81 mg PO DAILY #30 tab atorvastatin 40 mg PO HS #30 tab clopidogrel [Plavix] 75 mg PO DAILY #30 tab docusate sodium [DOK] 100 mg PO BID #60 cap furosemide 40 mg PO DAILY #30 tab swgohqcz-xhgs-HS-calcium-mins [Thera M Plus (ferrous fumarat)] 1 tab PO DAILY # 30 tab oxycodone-acetaminophen 1 tab PO Q4H PRN #40 tab PRN Reason: Acute Pain DS: Summary Hospital Course: 04/25 Doing well post CABG. Dobutamine drip discontinued Gentle diuresis. Lasix 40 mg IV this morning Maintain chest tube to drainage Transfer CBC later today Incentive spirometry and pulmonary toiletry 04/26 Clinically and hemodynamically well Continue with gentle diuresis Aggressive pulmonary toiletry and ambulation Maintain chest tube to drainage. Reevaluation for removal in a.m. Ambulate 04/27 Doing well Ambulating with assistance Chest tubes and pacing wires removed today Weaning O2 as tolerated Discharge planning 04/28 Doing well Ambulating independently Weaning O2 as tolerated. Remains on 1 L nasal cannula Evaluate for home O2 Possible discharge in a.m. 04/29 eval with home walk test / then dc home today continue diuresis with outpt f/u labs VSS - Time Spent with Patient Total time spent providing and/or coordinating discharge services: Greater than 30 minutes - Quality: AMI Clinical Trial Participant: No - Quality: VTE Deep Vein Thrombosis/Pulmonary Embolism Present on Admission: No Exam Vital signs: Vital Signs 04/28/18 11:54 04/28/18 12:33 04/28/18 13:19 Temperature Pulse Rate 73 74 71 Respiratory Rate Blood Pressure Pulse Oximetry Pulse Oximetry [Resting on Room Air] Pulse Oximetry [Resting with Oxygen] 04/28/18 14:38 04/28/18 15:29 04/28/18 16:33 Temperature 97.8 F Pulse Rate 77 69 70 Respiratory Rate 18 Blood Pressure 116/57 L Pulse Oximetry 94 L Pulse Oximetry [Resting on Room Air] Pulse Oximetry [Resting with Oxygen] 04/28/18 17:07 04/28/18 19:00 04/28/18 20:00 Temperature 98.4 F Pulse Rate 71 72 70 Respiratory Rate 18 Blood Pressure 108/62 Pulse Oximetry 94 L Pulse Oximetry [Resting on Room Air] Pulse Oximetry [Resting with Oxygen] 04/28/18 20:25 04/28/18 20:54 04/28/18 21:00 Temperature Pulse Rate 70 Respiratory Rate 18 Blood Pressure Pulse Oximetry 93 L Pulse Oximetry [Resting on Room Air] Pulse Oximetry [Resting with Oxygen] 04/28/18 22:00 04/28/18 23:00 04/29/18 00:00 Temperature 98.1 F Pulse Rate 67 67 65 Respiratory Rate 18 Blood Pressure 112/59 L Pulse Oximetry 95 Pulse Oximetry [Resting on Room Air] Pulse Oximetry [Resting with Oxygen] 04/29/18 01:00 04/29/18 02:00 04/29/18 02:47 Temperature 97.9 F Pulse Rate 67 61 63 Respiratory Rate 20 Blood Pressure 119/61 Pulse Oximetry 94 L Pulse Oximetry [Resting on Room Air] Pulse Oximetry [Resting with Oxygen] 04/29/18 02:58 04/29/18 03:27 04/29/18 03:53 Temperature Pulse Rate 60 64 Respiratory Rate 16 Blood Pressure Pulse Oximetry Pulse Oximetry [Resting on Room Air] Pulse Oximetry [Resting with Oxygen] 04/29/18 05:00 04/29/18 06:00 04/29/18 07:00 Temperature 97.2 F L Pulse Rate 60 60 61 Respiratory Rate 18 Blood Pressure 118/56 L Pulse Oximetry 96 Pulse Oximetry [Resting on Room Air] Pulse Oximetry [Resting with Oxygen] 04/29/18 08:00 04/29/18 08:20 04/29/18 08:22 Temperature Pulse Rate 62 Respiratory Rate Blood Pressure Pulse Oximetry 94 L Pulse Oximetry [Resting on Room Air] 87 L Pulse Oximetry [Resting with Oxygen] 94 L 04/29/18 09:00 04/29/18 10:00 04/29/18 11:30 Temperature Pulse Rate 62 67 Respiratory Rate 2 L Blood Pressure Pulse Oximetry Pulse Oximetry [Resting on Room Air] Pulse Oximetry [Resting with Oxygen] Intake & Output 04/28/18 04/29/18 04/29/18 18:59 06:59 18:59 Intake Total 600 / 600 720 / 720 Output Total 950 / 950 750 / 750 Balance -350 / -350 -30 / -30 Weight 127.6 kg Intake: Oral 600 / 600 720 / 720 Output: Urine 950 / 950 750 / 750 Other: Date of Last Bowel Movement 04/28/18 04/28/18 # Bowel Movements 4 1 - Constitutional no acute distress - Routine HEENT Exam Head: Present: normocephalic Eye: Present: EOMI, PERRL, normal accommodation - Routine Neck Exam Present: supple, full ROM, JVD - Routine Chest/Breast/Axilla Exam Chest wall: Present: tenderness - Routine Respiratory Exam Present: CTA bilaterally - Routine Cardiovascular Exam Present: RRR, S1, S2 - Routine Abdominal Exam Present: soft, normoactive bowel sounds - Routine Extremities Exam Present: edema, full ROM, pulses intact, normal capillary refill Comments: +1 edema both lower ext - Routine Skin Exam Present: wounds Comments: prevena dressing to chest - Routine Neurological Exam Present: alert, oriented X3, CN II-XII intact Results Procedures completed during hospitalization: 04/24- CABG Date of procedure: 04/24/18 Procedure: CABG x 3 BURR to LAD SVG to OM2 SVG to PDA L [facility] Labs on day of discharge: Labs from last 24 hours 09/06/0604/29/18 04/29/18 11:14 07:26 02:24 POC Glucose 208 H 146 H 136 H 04/28/18 04/28/18 04/28/18 19:19 16:21 11:51 POC Glucose 173 H 143 H 127 H - Impressions ITS Impressions Carotid Doppler Study 04/23/18 17:37 CONCLUSION: 1. Right Internal Carotid Artery: No hemodynamically significant stenosis. 2. Left Internal Carotid Artery: No hemodynamically significant stenosis. Lower Extremity Ultrasound 04/23/18 17:37 CONCLUSION: 1. Venous mapping as described above. Venous Doppler Study 04/23/18 17:37 CONCLUSION: 1. The study is negative for bilateral lower extremity deep venous thrombosis. Chest X-Ray 04/25/18 05:00 CONCLUSION: 1. Under inflation with subsegmental atelectasis at the lung bases and possible consolidation at the left lung base. Appearance is similar to yesterday 's examination. 2. Left chest tube remains present and no pneumothorax is visualized. Discharge Plan - Discharge Disposition Patient Disposition: 01 Discharge Home - Discharge Condition Condition: Stable - Discharge Order Discharge Orders: Discharge Order (Routine); Ordered 04/29/18 Ordered By: Kathy Bowers - Discharge Details Anticipated Discharge Date: 04/29/18 - Physicians Team Primary Care Provider: Emeterio Cavazos Attending Provider: Singh Oneal Other Providers: Jeffrey Basurto MD ; DOCTORS JOSE,
--- NOTE | 2018-04-29 13:20 | P.PN ---
Subjective Interval history: Nursing denies any deterioration since last night. Patient himself has no new complaints. Physical Exam Vital signs: Vital Signs 04/28/18 14:38 04/28/18 15:29 04/28/18 16:33 Temperature 97.8 F Pulse Rate 77 69 70 Respiratory Rate 18 Blood Pressure 116/57 L Pulse Oximetry 94 L Pulse Oximetry [Resting on Room Air] Pulse Oximetry [Resting with Oxygen] 04/28/18 17:07 04/28/18 19:00 04/28/18 20:00 Temperature 98.4 F Pulse Rate 71 72 70 Respiratory Rate 18 Blood Pressure 108/62 Pulse Oximetry 94 L Pulse Oximetry [Resting on Room Air] Pulse Oximetry [Resting with Oxygen] 04/28/18 20:25 04/28/18 20:54 04/28/18 21:00 Temperature Pulse Rate 70 Respiratory Rate 18 Blood Pressure Pulse Oximetry 93 L Pulse Oximetry [Resting on Room Air] Pulse Oximetry [Resting with Oxygen] 04/28/18 22:00 04/28/18 23:00 04/29/18 00:00 Temperature 98.1 F Pulse Rate 67 67 65 Respiratory Rate 18 Blood Pressure 112/59 L Pulse Oximetry 95 Pulse Oximetry [Resting on Room Air] Pulse Oximetry [Resting with Oxygen] 04/29/18 01:00 04/29/18 02:00 04/29/18 02:47 Temperature 97.9 F Pulse Rate 67 61 63 Respiratory Rate 20 Blood Pressure 119/61 Pulse Oximetry 94 L Pulse Oximetry [Resting on Room Air] Pulse Oximetry [Resting with Oxygen] 04/29/18 02:58 04/29/18 03:27 04/29/18 03:53 Temperature Pulse Rate 60 64 Respiratory Rate 16 Blood Pressure Pulse Oximetry Pulse Oximetry [Resting on Room Air] Pulse Oximetry [Resting with Oxygen] 04/29/18 05:00 04/29/18 06:00 04/29/18 07:00 Temperature 97.2 F L Pulse Rate 60 60 61 Respiratory Rate 18 Blood Pressure 118/56 L Pulse Oximetry 96 Pulse Oximetry [Resting on Room Air] Pulse Oximetry [Resting with Oxygen] 04/29/18 08:00 04/29/18 08:20 04/29/18 08:22 Temperature Pulse Rate 62 Respiratory Rate Blood Pressure Pulse Oximetry 94 L Pulse Oximetry [Resting on Room Air] 87 L Pulse Oximetry [Resting with Oxygen] 94 L 04/29/18 09:00 04/29/18 10:00 04/29/18 11:30 Temperature Pulse Rate 62 67 Respiratory Rate 2 L Blood Pressure Pulse Oximetry Pulse Oximetry [Resting on Room Air] Pulse Oximetry [Resting with Oxygen] Intake & Output 04/28/18 04/29/18 04/29/18 18:59 06:59 18:59 Intake Total 600 / 600 720 / 720 Output Total 950 / 950 750 / 750 Balance -350 / -350 -30 / -30 Weight 127.6 kg Intake: Oral 600 / 600 720 / 720 Output: Urine 950 / 950 750 / 750 Other: Date of Last Bowel Movement 04/28/18 04/28/18 # Bowel Movements 4 1 Narrative: Clear lungs bilaterally Unlabored breathing - Urinary Catheter Management Indwelling Temp Sensing Catheter Cath placed during this visit: yes Reason for continuing: Hourly intake/output Insertion date: 04/24/18 Insertion time: 07:45 Results - Labs CBC & Chem 7: 04/28/18 05:50 04/28/18 05:50 Laboratory Results - last 24 hr 04/28/18 04/28/18 04/29/18 16:21 19:19 02:24 POC Glucose 143 H 173 H 136 H 04/29/18 04/29/18 07:26 11:14 POC Glucose 146 H 208 H - Procedures 04/24- CABG Date of procedure: 04/24/18 Procedure: CABG x 3 BURR to LAD SVG to OM2 SVG to PDA L [facility] Assessment and Plan - Assessment (1) S/P CABG (coronary artery bypass graft) Code(s): Z95.1 - Presence of aortocoronary bypass graft Status: Acute (2) CAD (coronary artery disease) Code(s): I25.10 - Atherosclerotic heart disease of hughes coronary artery without angina pectoris Status: Acute (3) NSTEMI (non-ST elevated myocardial infarction) Code(s): I21.4 - Non-ST elevation (NSTEMI) myocardial infarction Status: Acute - Plan Doing well status post CABG Anticipate discharge today with home oxygen Progress Note: Quality - AMI Clinical Trial Participant: No (2) CAD (coronary artery disease) Qualifiers: Coronary Disease-Associated Artery/Lesion type: [place] artery [place] vs. transplanted heart: hughes heart Associated angina: with unstable angina Qualified Code(s): I25.110 - Atherosclerotic heart disease of hughes coronary artery with unstable angina pectoris
== END 2018-04-29 15:25 | disposition home health service (06) ==
LOC: PHED 12:34 → PHEDA 12:34 → OBSVTOIN 14:46 → PH3 16:01 → HCIS 04-22 13:58 → HCVI 04-24 12:32 → HCPC 04-25 15:40
PROVIDERS: ADMIT Hospitalist; ATTEND Hospitalist

== ENCOUNTER 2018-06-15 12:45 | Inpatient (IN) ==
[2018-06-15] MEDS ORDERED: Acetaminophen 325 MG Tablet PO ONE (13:27)
[2018-06-15] MEDS ORDERED: Sod Chloride 0.9% Inj 1,000 ML IV.SIG SCH (13:30)
[2018-06-15 13:46] LABS: Baso # (Auto) 0.1 th/mm3 (0.0-0.2); Baso % (Auto) 0.4 % (0.0-2.0); Eos % (Auto) 0.1 % (0.0-4.0); Hematocrit 39.8 % (39.0-51.0); Lymph # (Auto) 0.6 th/mm3 (1.0-4.8); Lymph % (Auto) 3.7 % (9.0-44.0); Mean Corpuscular HGB Conc 32.7 % (32.0-36.0); Mean Corpuscular Hemoglobin 26.8 pg (27.0-34.0); Mean Platelet Volume 8.9 fL (7.0-11.0); Mono % (Auto) 5.9 % (0.0-8.0); Neut # (Auto) 14.4 th/mm3 (1.8-7.7); Neut % (Auto) 89.9 % (16.0-70.0); Platelet Count 214 th/mm3 (150-450); Red Blood Count 4.86 mil/mm3 (4.50-5.90); Red Cell Distribution Width 12.9 % (11.6-17.2); White Blood Count 16.1 th/mm3 (4.0-11.0)
--- NOTE | 2018-06-15 13:49 | XR ---
EXAM DATE: 06/15/2018 1:45 PM EDT AGE/SEX: 73 years / Male INDICATIONS: Fever, shortness of breath and chest tightness. CLINICAL DATA: This is the patient's initial encounter. Patient reports that signs and symptoms have been present for 1 day and indicates a pain score of 2/10. MEDICAL/SURGICAL HISTORY: Chronic obstructive pulmonary disease. Congestive heart failure. Di abetes. Hypertension. Asthma. CABG. COMPARISON: POI, XR CHEST PA AND LAT, 05/13/2018. . FINDINGS: Moderate pulmonary edema is noted. The heart is enlarged. Tiny left pleural effusion is noted. Median sternotomy wires are noted. CONCLUSION: 1. Moderate pulmonary edema. 2. Cardiomegaly. 3. Tiny left pleural effusion. Electronically signed by: Pelon Oates MD 06/15/2018 1:48 PM EDT
[2018-06-15 13:54] LABS: Chloride 102 meq/L (98-107); Potassium 4.5 meq/L (3.5-5.1); Sodium 138 meq/L (136-145)
[2018-06-15 13:57] LABS: Calcium 8.4 mg/dL (8.5-10.1)
[2018-06-15 13:58] LABS: Albumin 3.1 g/dL (3.4-5.0); Anion Gap 7 meq/L (5-15); Blood Urea Nitrogen 18 mg/dL (7-18); Carbon Dioxide 29.3 meq/L (21.0-32.0); Glucose,Random 148 mg/dL (74-106); Lipase 67 U/L (73-393); Magnesium 1.9 mg/dL (1.5-2.5)
[2018-06-15 14:01] LABS: Alanine Aminotransferase 35 U/L (12-78); Aspartate Aminotransferase 35 U/L (15-37); Glomerular Filtration Rate 76 mL/min (>89)
[2018-06-15 14:03] LABS: Total Protein 7.7 g/dL (6.4-8.2)
[2018-06-15 14:04] LABS: Alkaline Phosphatase 139 U/L (45-117)
[2018-06-15 14:05] LABS: Bilirubin,Urine Negative (Negative); Clarity,Urine Clear (Clear); Color,Urine Yellow (Yellw/Straw); Glucose,Urine (UA) Negative (Negative); Leukocyte Esterase,Urine Negative (Negative); Nitrite,Urine Negative (Negative); PH,Urine 7.5 (5.0-8.5); Specific Gravity,Urine 1.015 (1.002-1.035); Urobilinogen,Urine 0.2 mg/dL (Less than 2)
[2018-06-15] MEDS ORDERED: Vancomycin Inj 2,000 MG in Sodium Chlor 0.9% Inj 500 ML IV.SIG STA (14:10)
[2018-06-15 14:11] LABS: Collection Time,Urine 1400 hours; Squamous Epithelial Cell,Urine 0-5 /hpf (0-5)
--- NOTE | 2018-06-15 14:21 | ED ---
HPI General Chief Complaint: Fever Stated Complaint: Fever/weakness x this am Time Seen by Provider: 06/15/18 13:20 Source: patient Mode of arrival: ambulatory Limitations: no limitations History of Present Illness HPI Narrative: The patient 73 years old and arrives with a complaint of fever. It was first noticed this morning at home, approximately 11 AM. He states the temp at home was 102. Patient has no cough, abdominal pain, chest pain or urinary complaint Is offered. Patient underwent CABG about 6 weeks ago here. He reports compliance with Lasix at home. Past medical history includes COPD, CHF, coronary artery disease and CABG. He states yesterday he went to 2 different supermarkets and normally he goes to just one. He believes this may have led to an overexertion however states otherwise he has been feeling well. Patient does note that early this morning he vomited and again later in the morning he vomited nonbloody emesis. Both times vomiting occurred after eating. MD complaint: Reports fever Onset (ago): hour(s) Temperature Source: oral Associated symptoms: Reports vomiting Related Data Home Medications Medication Instructions Recorded Confirmed albuterol sulfate 0.63 mg INHALATION QID PRN 04/21/18 06/15/18 metformin 1,000 mg PO DAILY 04/21/18 06/15/18 pantoprazole 40 mg PO DAILY 04/21/18 06/15/18 tiotropium bromide [Spiriva 2 puff INHALATION DAILY 04/21/18 06/15/18 Respimat] atenolol 25 mg PO DAILY 06/15/18 06/15/18 rosuvastatin [Crestor] 10 mg PO DAILY 06/15/18 06/15/18 Previous Rx's Medication Instructions Recorded aspirin 81 mg PO DAILY #30 tab 04/29/18 atorvastatin 40 mg PO HS #30 tab 04/29/18 clopidogrel [Plavix] 75 mg PO DAILY #30 tab 04/29/18 docusate sodium [DOK] 100 mg PO BID #60 cap 04/29/18 furosemide 40 mg PO DAILY #30 tab 04/29/18 ulcmzsur-npxs-TY-calcium-mins 1 tab PO DAILY #30 tab 04/29/18 [Thera M Plus (ferrous fumarat)] potassium chloride 20 meq PO DAILY #30 tab 04/29/18 Allergies Allergy/AdvReac Type Severity Reaction Status Date / Time No Known Allergies Allergy Verified 06/15/18 13:06 Review of Systems ROS: all other systems reviewed are negative PMFSH Social History Social History Substance History: No History of Abuse Second Hand Smoke Exposure: No Smoking Status: Former smoker Tobacco Type: Cigarettes How Often Do You Have a Drink Containing Alcohol: Never Recent Travel in [facility] within the Last 8 Weeks: No Recent Out of Country Travel within the Last 8 Weeks: No Immunization History Tetanus Immunization: Unsure Exam Narrative Exam Narrative: GENERAL: 73-year-old male well-nourished well-developed no acute distress speaking full sentences SKIN: Focused skin assessment warm/dry. HEAD: Atraumatic. Normocephalic. EYES: Pupils equal and round. No scleral icterus. No injection or drainage. ENT: No nasal bleeding or discharge. Mucous membranes pink and moist. NECK: Trachea midline. No JVD. CARDIOVASCULAR: Heart rate in the 90s. Regular rhythm. RESPIRATORY: Breath sounds present bilaterally. No significant dyspnea. GASTROINTESTINAL: Abdomen soft, non-tender, nondistended. Hepatic and splenic margins not palpable. MUSCULOSKELETAL: No obvious deformities. No clubbing. No cyanosis. No edema. NEUROLOGICAL: Awake and alert. No obvious cranial nerve deficits. Motor grossly within normal limits. Normal speech. PSYCHIATRIC: Appropriate mood and affect; insight and judgment normal. Course Initial Documented Vital Signs Temperature 102.6 F H 06/15/18 13:06 Pulse Rate 94 H 06/15/18 13:06 Respiratory Rate 24 06/15/18 13:06 Blood Pressure 146/67 H 06/15/18 13:06 Pulse Oximetry 89 L 06/15/18 13:06 Last Documented Vital Signs Temperature 101 F H 06/15/18 14:10 Pulse Rate 87 06/15/18 14:10 Respiratory Rate 20 06/15/18 14:10 Blood Pressure 117/63 06/15/18 14:10 Pulse Oximetry 95 06/15/18 14:10 Medical Decision Making [facility] Narrative Medical decision making narrative: Patient has a fever. There is pulmonary edema on chest x-ray. Empiric coverage with cefepime and Vanco. Patient is hemodynamically normal and without complaint. Case discussed with Dr. Wynne [facility]. Medical Screen Exam Complete: Yes Emergency Medical Condition: Yes Differential Diagnosis Differential Diagnosis: Sepsis, pneumonia, CHF exacerbation, cellulitis, UTI Medical Records Medical records reviewed: Yes I reviewed the patient's medical records. Lab Data Lab results reviewed: Yes I reviewed the patient's lab results. Result diagrams: 06/15/18 13:25 06/15/18 13:25 Lab Results 06/15/18 06/15/18 06/15/18 Range/Units 13:25 13:25 13:25 CBC w Diff Auto diff final WBC 16.1 H (4.0-11.0) th/mm3 RBC 4.86 (4.50-5.90) mil/mm3 Hgb 13.0 (13.0-17.0) gm/dL Hct 39.8 (39.0-51.0) % MCV 82.0 (80.0-100.0) fL MCH 26.8 L (27.0-34.0) pg MCHC 32.7 (32.0-36.0) % RDW 12.9 (11.6-17.2) % Plt Count 214 (150-450) th/mm3 MPV 8.9 (7.0-11.0) fL Neut % (Auto) 89.9 H (16.0-70.0) % Lymph % (Auto) 3.7 L (9.0-44.0) % Jennings % (Auto) 5.9 (0.0-8.0) % Eos % (Auto) 0.1 (0.0-4.0) % Baso % (Auto) 0.4 (0.0-2.0) % Neut # (Auto) 14.4 H (1.8-7.7) th/mm3 Lymph # (Auto) 0.6 L (1.0-4.8) th/mm3 [place] # (Auto) 1.0 H (0.0-0.9) th/mm3 Eos # (Auto) 0.0 (0.0-0.4) th/mm3 Baso # (Auto) 0.1 (0.0-0.2) th/mm3 WBC Differential . Differential Comment . Sodium 138 (136-145) meq/L Potassium 4.5 (3.5-5.1) meq/L Chloride 102 (98-107) meq/L Carbon Dioxide 29.3 (21.0-32.0) meq/L Anion Gap 7 (5-15) meq/L BUN 18 (7-18) mg/dL Creatinine 0.97 (0.60-1.30) mg/dL Estimated GFR 76 L (>89) mL/min Random Glucose 148 H (74-106) mg/dL Lactic Acid 2.1 H (0.4-2.0) mmol/L Calcium 8.4 L (8.5-10.1) mg/dL Magnesium 1.9 (1.5-2.5) mg/dL Total Bilirubin 0.4 (0.2-1.0) mg/dL AST 35 (15-37) U/L ALT 35 (12-78) U/L Alkaline Phosphatase 139 H (45-117) U/L Troponin I Less than 0.02 L (0.02-0.05) ng/mL Total Protein 7.7 (6.4-8.2) g/dL Albumin 3.1 L (3.4-5.0) g/dL Lipase 67 L (73-393) U/L Ur Collection Type Urine Color (Yellw/Straw) Urine Clarity (Clear) Urine pH (5.0-8.5) Ur Specific [place] (1.002-1.035) Urine Protein (Neg-Trace) mg/dL Urine Glucose (UA) (Negative) mg/dL Urine Ketones (Negative) mg/dL Urine Occult Blood (Negative) Urine Nitrate (Negative) Urine Bilirubin (Negative) Urine Urobilinogen (Less than 2) mg/dL Ur Leukocyte Esterase (Negative) Ur Squamous Epith Cells (0-5) /hpf Micro UA Comment Ur Microscopic Review Urine Culture Comments Urine Collection Time hours 06/15/18 Range/Units 14:00 CBC w Diff WBC (4.0-11.0) th/mm3 RBC (4.50-5.90) mil/mm3 Hgb (13.0-17.0) gm/dL Hct (39.0-51.0) % MCV (80.0-100.0) fL MCH (27.0-34.0) pg MCHC (32.0-36.0) % RDW (11.6-17.2) % Plt Count (150-450) th/mm3 MPV (7.0-11.0) fL Neut % (Auto) (16.0-70.0) % Lymph % (Auto) (9.0-44.0) % [place] % (Auto) (0.0-8.0) % Eos % (Auto) (0.0-4.0) % Baso % (Auto) (0.0-2.0) % Neut # (Auto) (1.8-7.7) th/mm3 Lymph # (Auto) (1.0-4.8) th/mm3 [place] # (Auto) (0.0-0.9) th/mm3 Eos # (Auto) (0.0-0.4) th/mm3 Baso # (Auto) (0.0-0.2) th/mm3 WBC Differential Differential Comment Sodium (136-145) meq/L Potassium (3.5-5.1) meq/L Chloride (98-107) meq/L Carbon Dioxide (21.0-32.0) meq/L Anion Gap (5-15) meq/L BUN (7-18) mg/dL Creatinine (0.60-1.30) mg/dL Estimated GFR (>89) mL/min Random Glucose (74-106) mg/dL Lactic Acid (0.4-2.0) mmol/L Calcium (8.5-10.1) mg/dL Magnesium (1.5-2.5) mg/dL Total Bilirubin (0.2-1.0) mg/dL AST (15-37) U/L ALT (12-78) U/L Alkaline Phosphatase (45-117) U/L Troponin I (0.02-0.05) ng/mL Total Protein (6.4-8.2) g/dL Albumin (3.4-5.0) g/dL Lipase (73-393) U/L Ur Collection Type Clean catch Urine Color Yellow (Yellw/Straw) Urine Clarity Clear (Clear) Urine pH 7.5 (5.0-8.5) Ur Specific [place] 1.015 (1.002-1.035) Urine Protein Negative (Neg-Trace) mg/dL Urine Glucose (UA) Negative (Negative) mg/dL Urine Ketones Negative (Negative) mg/dL Urine Occult Blood Negative (Negative) Urine Nitrate Negative (Negative) Urine Bilirubin Negative (Negative) Urine Urobilinogen 0.2 (Less than 2) mg/dL Ur Leukocyte Esterase Negative (Negative) Ur Squamous Epith Cells 0-5 (0-5) /hpf Micro UA Comment Culture not ind Ur Microscopic Review Microscopic reviewed Urine Culture Comments Culture not ind Urine Collection Time 1400 hours Imaging Data Attestation: I personally reviewed and interpreted this imaging study as follows : (pulmonary edema) Radiologist's impression: Chest X-Ray 06/15/18 13:27 CONCLUSION: 1. Moderate pulmonary edema. 2. Cardiomegaly. 3. Tiny left pleural effusion. ECG Data Attestation: I personally reviewed and interpreted this ECG as follows: (EKG sinus, rate 91, normal axis, TWI present precordial leads) Discharge Plan Discharge Disposition Patient Disposition: 30 Still Patient Physicians Team ED Provider: Chilango Garcias Primary Care Provider: Emeterio Cavazos Rxs /Orders / Referrals /Forms Prescriptions: No Action atenolol 25 mg Tablet 25 mg PO DAILY RF: 0 rosuvastatin [Crestor] 10 mg Tablet 10 mg PO DAILY RF: 0 albuterol sulfate 0.63 mg/3 mL Solution For Nebulization 0.63 mg INHALATION QID PRN (Reason: Respiratory Distress) RF: 0 pantoprazole 20 mg Tablet,Delayed Release (Dr/Ec) 40 mg PO DAILY RF: 0 metformin 1,000 mg Tablet 1,000 mg PO DAILY RF: 0 tiotropium bromide [Spiriva Respimat] 1.25 mcg/actuation Mist 2 puff INHALATION DAILY RF: 0 furosemide 40 mg Tablet 40 mg PO DAILY Qty: 30 RF: 1 atorvastatin 40 mg Tablet 40 mg PO HS Qty: 30 RF: 2 clopidogrel [Plavix] 75 mg Tablet 75 mg PO DAILY Qty: 30 RF: 2 docusate sodium [DOK] 100 mg Capsule 100 mg PO BID Qty: 60 RF: 0 aspirin 81 mg Tablet,Chewable 81 mg PO DAILY Qty: 30 RF: 2 youfdejk-ugps-SW-calcium-mins [Thera M Plus (ferrous fumarat)] 9 mg iron-400 mcg Tablet 1 tab PO DAILY Qty: 30 RF: 2 potassium chloride 10 mEq Tablet Extended Release 20 meq PO DAILY Qty: 30 RF: 1 Discharge Interventions Interventions: Vital Signs Last Done: 06/15/18 14:10 Status ED Status: With Doctor
[2018-06-15] MEDS ORDERED: Acetaminophen 325 MG Tablet PO PRN (14:34)
[2018-06-15] MEDS ORDERED: Bisacodyl 10 MG Supp RECTAL PRN (14:34)
[2018-06-15] MEDS ORDERED: Dextrose 50% in Water 50 ML Vial IV.PUSH PRN (14:39)
[2018-06-15] MEDS ORDERED: Vancomycin Consult Pharmacy 1 EACH OTHER SCH (14:45)
[2018-06-15] MEDS ORDERED: Sod Chloride 0.9% Inj 1,000 ML IV.CONT SCH (14:45)
--- NOTE | 2018-06-15 15:05 | P.HP ---
History of Present Illness Primary Care Physician: Emeterio Cavazos MD Chief Complaint: Fever History of Present Illness: 73-year-old male with known history of hypertension, hyperlipidemia, diabetes, coronary artery disease who presented to the hospital because of fever. Patient states that he has been in his normal state of health until this morning when he started noticing fever and chills and because of that he came to the emergency department for evaluation. He thought that he may have picked up a virus when he was out shopping the last couple days. However he has not had any signs or symptoms of any sicknesses or illnesses. He denies any runny nose, cough, congestion, abdominal pain, diarrhea, shortness of breath , dyspnea. Patient does have a rather complex recent history with open heart surgery for three-vessel bypass on 04/24/18. In the emergency department patient had workup and was found to have fever of unknown origin, leukocytosis, lactic acidosis. Is recommended by ER physician that the patient be admitted for further evaluation and management. - Diagnosis (1) Systemic inflammatory response syndrome (2) Fever of unknown origin (3) Leukocytosis (4) Lactic acid acidosis Inpatient Certification: I certify that the inpatient services were ordered in accordance with Medicare regulations governing the order. This includes certification that hospital inpatient services are reasonable and necessary and in the case of services not specified as inpatient-only under 42 CFR 419.22(n), that they are appropriately provided as inpatient services in accordance to with the 2-midnight benchmark under 43 CFR 412.3(e) Estimated Total Length of Stay (Days): 3 Plans for Post Hospital Care: Not yet determined Review of Systems All other systems reviewed negative except as stated in HPI Constitutional: Reports fever(s) PMFSH - History History Provided By: Patient, Family Member - Medical History Medical History: Medical History (Last Reviewed 06/15/18 @ 14:58 by SEBASTIAN Coelho) Hx of fracture of femur (Acute) Hx of congestive heart failure (Acute) History of COPD (Acute) Hx of diabetes mellitus (Acute) Status post open reduction with internal fixation of fracture - Surgical History Surgical History: Surgical History (Last Reviewed 06/15/18 @ 14:58 by SEBASTIAN Coelho) Hx of CABG - Family History Family History: Family History (Last Updated 06/15/18 @ 15:41 by SEBASTIAN Coelho) Father Family history of cancer Mother Family history of heart disease - Tobacco History Second Hand Smoke Exposure: No Tobacco Use In Past 30 Days: No Smoking Status: Former smoker Tobacco Type: Cigarettes - Alcohol History How Often Do You Have a Drink Containing Alcohol: Never - Substance Use History Substance History: No History of Abuse - Travel History Recent Travel in the [place] Within the Last 8 Weeks: No Recent Travel Out of the Country Within the Last 8 Weeks: No - Immunization History Tetanus Immunization: Unsure Medications and Allergies Active Medications: Active Medications Acetaminophen (Tylenol) 650 mg PO Q4H PRN PRN Reason: Temp > 100.4 Al Hydroxide/Mg Hydroxide (Milk Of Magnesia Liq) 30 ml PO Q12H PRN PRN Reason: Mild Constipation Aspirin (Aspirin Chew) 81 mg PO DAILY [facility] Atenolol (Tenormin) 25 mg PO DAILY [facility] Atorvastatin Calcium (Lipitor) 40 mg PO HS [facility] Bisacodyl (Dulcolax Supp) 10 mg RECTAL DAILY PRN PRN Reason: SEVERE CONSITIPATION Clopidogrel Bisulfate (Plavix) 75 mg PO DAILY [facility] Dextrose (D50w Vial) 50 ml IV.PUSH UNSCH PRN PRN Reason: PER HYPOGLYCEMIA PROTOCOL Furosemide (Lasix) 40 mg PO DAILY [facility] Glucagon (Glucagon Inj) 1 mg OTHER PRN PRN PRN Reason: for Hypoglycemia Protocol Sodium Chloride (Ns Inj) 1,000 mls @ 0 mls/hr IV.SIG .Q0M [facility] Last Infusion: 06/15/18 14:08 Dose: Infused Vancomycin HCl 2,000 mg/ (Sodium Chloride) 520 mls @ 250 mls/hr IV.SIG STAT STA Stop: 06/15/18 16:14 Cefepime HCl 2,000 mg/ Sodium (Chloride) 100 mls @ 200 mls/hr IV.SIG Q12H [facility] Pharmacy Profile Note (Vancomycin Consult Pharmacy) 0 mls @ 0 mls/hr OTHER UNSCH [facility] Sodium Chloride (Ns Inj) 1,000 mls @ 100 mls/hr IV.CONT .Q10H [facility] Last Admin: 06/15/18 14:47 Dose: 100 mls/hr Insulin Aspart (Novolog Insulin Correctional Sugar Inj) 0 unit SQ ACHS [facility]; Protocol Lactulose (Lactulose Liq) 30 ml PO DAILY PRN PRN Reason: SEVERE CONSITIPATION Ondansetron HCl (Zofran Inj) 4 mg IV.PUSH Q6H PRN PRN Reason: NAUSEA OR VOMITING Senna/Docusate Sodium (Nat-Colace) 1 tab PO BID [facility] Sennosides (Senokot) 17.2 mg PO Q12H PRN PRN Reason: Moderate Constipation Temazepam (Restoril) 15 mg PO HS PRN PRN Reason: INSOMNIA Allergies Allergy/AdvReac Type Severity Reaction Status Date / Time No Known Allergies Allergy Verified 06/15/18 13:06 Home Medications Medication Instructions Recorded Confirmed Type albuterol sulfate 0.63 mg INHALATION QID PRN 04/21/18 06/15/18 History metformin 1,000 mg PO DAILY 04/21/18 06/15/18 History pantoprazole 40 mg PO DAILY 04/21/18 06/15/18 History tiotropium bromide [Spiriva 2 puff INHALATION DAILY 04/21/18 06/15/18 History Respimat] atenolol 25 mg PO DAILY 06/15/18 06/15/18 History rosuvastatin [Crestor] 10 mg PO DAILY 06/15/18 06/15/18 History Exam Vital signs: Vital Signs 06/15/18 13:06 06/15/18 14:10 06/15/18 14:49 Temperature 102.6 F H 101 F H Pulse Rate 94 H 87 87 Respiratory Rate 24 20 20 Blood Pressure 146/67 H 117/63 109/62 Pulse Oximetry 89 L 95 94 L Intake & Output 06/14/18 06/15/18 06/15/18 18:59 06:59 18:59 Intake Total 1000 / 1000 Balance 1000 / 1000 Weight 121.8 kg Intake: IV 1000 / 1000 NS Inj 1,000 ML @ Wide Open IV. 1000 / 1000 SIG .Q0M [facility] Rx#:[id number] Narrative: GENERAL: Well-developed, well-nourished, in no acute distress. alert and orientated HEENT: Head is normocephalic without any lesions or masses noted. Facial features are symmetric. Eyes: Pupils equal round reactive to light. Extraocular muscles are intact. Conjunctivae were clear. Oropharyngeal: Pharynx without any erythema edema. Tongue is midline without deviation. Buccal mucosa is moist without any masses or lesions NECK: Supple without any masses. Trachea midline no deviation. No JVD, no bruits are appreciated CARDIAC: Regular rhythm, regular rate. S1/S2 are heard. No murmurs gallops or rubs. LUNGS: Clear to auscultation bilaterally. No wheeze, rhonchi or rales. No use of accessory muscles on inspiration or expiration. ABDOMEN: Soft, nontender. Nondistended. Bowel sounds heard in all 4 quadrants. No organomegaly or masses. Negative rebound, negative guarding EXTREMITIES: No edema, pulses are equal bilaterally. No cyanosis or clubbing NEUROLOGY: Mood and affect appear appropriate. Cranial nerves II through XII grossly intact. Muscle strength 5/5 in upper and lower extremities bilaterally. Deep tendon reflexes are 2+ in upper and lower extremities bilaterally. Results - Labs CBC & Chem 7: 06/15/18 13:25 06/15/18 13:25 Labs: Laboratory Results - last 24 hr 06/15/18 06/15/18 06/15/18 13:25 13:25 13:25 CBC w Diff Auto diff final WBC 16.1 H RBC 4.86 Hgb 13.0 Hct 39.8 MCV 82.0 MCH 26.8 L MCHC 32.7 RDW 12.9 Plt Count 214 MPV 8.9 Neut % (Auto) 89.9 H Lymph % (Auto) 3.7 L Gage % (Auto) 5.9 Eos % (Auto) 0.1 Baso % (Auto) 0.4 Neut # (Auto) 14.4 H Lymph # (Auto) 0.6 L Gage # (Auto) 1.0 H Eos # (Auto) 0.0 Baso # (Auto) 0.1 WBC Differential . Differential Comment . Sodium 138 Potassium 4.5 Chloride 102 Carbon Dioxide 29.3 Anion Gap 7 BUN 18 Creatinine 0.97 Estimated GFR 76 L Random Glucose 148 H Lactic Acid 2.1 H Calcium 8.4 L Magnesium 1.9 Total Bilirubin 0.4 AST 35 ALT 35 Alkaline Phosphatase 139 H Troponin I Less than 0.02 L Total Protein 7.7 Albumin 3.1 L Lipase 67 L Ur Collection Type Urine Color Urine Clarity Urine pH Ur Specific [place] Urine Protein Urine Glucose (UA) Urine Ketones Urine Occult Blood Urine Nitrate Urine Bilirubin Urine Urobilinogen Ur Leukocyte Esterase Ur Squamous Epith Cells Micro UA Comment Ur Microscopic Review Urine Culture Comments Urine Collection Time 06/15/18 14:00 CBC w Diff WBC RBC Hgb Hct MCV MCH MCHC RDW Plt Count MPV Neut % (Auto) Lymph % (Auto) Gage % (Auto) Eos % (Auto) Baso % (Auto) Neut # (Auto) Lymph # (Auto) Gage # (Auto) Eos # (Auto) Baso # (Auto) WBC Differential Differential Comment Sodium Potassium Chloride Carbon Dioxide Anion Gap BUN Creatinine Estimated GFR Random Glucose Lactic Acid Calcium Magnesium Total Bilirubin AST ALT Alkaline Phosphatase Troponin I Total Protein Albumin Lipase Ur Collection Type Clean catch Urine Color Yellow Urine Clarity Clear Urine pH 7.5 Ur Specific [place] 1.015 Urine Protein Negative Urine Glucose (UA) Negative Urine Ketones Negative Urine Occult Blood Negative Urine Nitrate Negative Urine Bilirubin Negative Urine Urobilinogen 0.2 Ur Leukocyte Esterase Negative Ur Squamous Epith Cells 0-5 Micro UA Comment Culture not ind Ur Microscopic Review Microscopic reviewed Urine Culture Comments Culture not ind Urine Collection Time 1400 - Imaging Impressions Chest X-Ray 06/15/18 13:27 CONCLUSION: 1. Moderate pulmonary edema. 2. Cardiomegaly. 3. Tiny left pleural effusion. Caprini VTE Risk Assessment Caprini VTE Risk Assessment: Moderate/High Risk (score >= 2) Caprini Risk Assessment Model: Point Value = 1 Point Value = 2 Point Value = 3 Point Value = 5 Age 41-60 Minor surgery BMI > 25 kg/m2 Swollen legs Varicose veins or History of unexplained or recurrent spontaneous Oral contraceptives or hormone replacement Sepsis (< 1 month) Serious lung disease, including pneumonia (< 1 month) Abnormal pulmonary function Acute myocardial infarction Congestive heart failure (< 1 month) History of inflammatory bowel disease Medical patient at bed rest Age 61-74 Arthroscopic surgery Major open surgery (> 45 min) Laparoscopic surgery (> 45 min) Malignancy Confined to bed (> 72 hours) Immobilizing plaster cast Central venous access Age >= 75 History of VTE Family history of VTE Factor V Leiden Prothrombin [id number] Lupus anticoagulant Anticardiolipin antibodies Elevated serum homocysteine Heparin-induced thrombocytopenia Other congenital or acquired thrombophilia Stroke (< 1 month) Elective arthroplasty Hip, pelvis, or leg fracture Acute spinal cord injury (< 1 month) Prophylaxis Regimen: Total Risk Factor Score Risk Level Prophylaxis Regimen 0-1 Low Early ambulation 2 Moderate Order ONE of the following: *Sequential Compression Device (SCD) *Heparin 5000 units SQ BID 3-4 Higher Order ONE of the following medications: *Heparin 5000 units SQ TID *Enoxaparin/Lovenox 40 mg SQ daily (WT < 150 kg, CrCl > 30 mL/min) *Enoxaparin/Lovenox 30 mg SQ daily (WT < 150 kg, CrCl > 10-29 mL/min) *Enoxaparin/Lovenox 30 mg SQ BID (WT < 150 kg, CrCl > 30 mL/min) AND/OR *Sequential Compression Device (SCD) 5 or more Highest Order ONE of the following medications: *Heparin 5000 units SQ TID (Preferred with Epidurals) *Enoxaparin/Lovenox 40 mg SQ daily (WT < 150 kg, CrCl > 30 mL/min) *Enoxaparin/Lovenox 30 mg SQ daily (WT < 150 kg, CrCl > 10-29 mL/min) *Enoxaparin/Lovenox 30 mg SQ BID (WT < 150 kg, CrCl > 30 mL/min) AND *Sequential Compression Device (SCD) Assessment and Plan - Assessment (1) Systemic inflammatory response syndrome Code(s): R65.10 - Systemic inflammatory response syndrome (SIRS) of non- infectious origin without acute organ dysfunction Status: Acute (2) Fever of unknown origin Code(s): R50.9 - Fever, unspecified Status: Acute (3) Leukocytosis Code(s): D72.829 - Elevated white blood cell count, unspecified Status: Acute (4) Lactic acid acidosis Code(s): E87.2 - Acidosis Status: Acute - Plan Systemic inflammatory response syndrome -Patient meets criteria with febrile illness, leukocytosis, lactic acidosis. However no source of infection has been identified -Patient infectious source/fever of unknown origin is highly suspicious for possible cardiogenic in nature. Patient has had coronary bypass surgery done on 04/24/18. Will need to rule out any endocarditis -Patient will be started on empiric antibiotics include cefepime, vancomycin -Workup for infectious source is unremarkable at this time, chest x-ray does not indicate any infiltrate, urinalysis was unremarkable, influenza testing was negative -Continue to follow blood cultures -Consult infectious disease for further recommendations Hypertension, hyperlipidemia, coronary artery disease -Continue home medications Diabetes -Accu-Cheks with sliding scale insulin DVT prevention -Sequential compression devices
[2018-06-15] MEDS: Insulin NovoLOG Aspart Correctional Sugar Inj SQ SCH ×2 (17:44→22:25)
[2018-06-15] MEDS: Senna/Docusate Sodium 8.6/50 MG Tablet PO SCH (21:17)
--- NOTE | 2018-06-15 23:43 | ECG ---
Date Performed: 06/15/2018 Time Performed: 13:35:56 PTAGE: 73 years EKG: Sinus rhythm MODERATE T-WAVE ABNORMALITY, CONSIDER ANTEROLATERAL ISCHEMIA ABNORMAL ECG PREVIOUS TRACING : 04/25/2018 08.32 Compared to previous tracing, Anterior T-Wave abnormality i s new Clinical correlation is recommended DOCTOR: Noam Valle Interpretating Date/Time 06/15/2018 23:41:30
[2018-06-15] MEDS: Temazepam 15 MG Capsule PO PRN (23:46)
--- NOTE | 2018-06-16 00:11 | MB ---
cc: Devin Samuel MD DATE: 06/15/2018 REQUESTING PHYSICIAN: Fredy Bergeron MD ATTENDING PHYSICIAN: Saurav Wynne MD REASON FOR CONSULTATION: Followup, recent cardiovascular surgery. HISTORY OF PRESENT ILLNESS: He is a 73-year-old white male who developed fever and chills and presented to the emergency department this morning for evaluation. The patient has a recent history of coronary artery bypass graft surgery on 04/24/2018. He states that he was feeling fine except for earlier today when he started developing chills. He reports that he was doing more than his usual activity in that he would go shopping usually for 1 hour, but that he went for 2 hours the day previous, and felt that he "overdid it." He denies sweats, nausea, vomiting, abdominal pain, diarrhea, dysuria, back pain or shortness of breath. He notes that his temperature at home was 102 degrees. He was evaluated in the Emergency Department and his temperature was 102.6. He also had elevated white blood cell count of 16.1. Urinalysis was performed and it was unremarkable. Chest x-ray showed moderate pulmonary edema and tiny left pleural effusion. The patient has no sputum production. He has no chest pain. He has had no problems with the sternal incision since surgery. He denies muscle pain. He notes that he has mild pain in the left shoulder joint, but he thinks it is because of the way he slept. He has had no unusual exposures to pets. No recent travels. PAST MEDICAL HISTORY: Diabetes mellitus, congestive heart failure, COPD, history of femur fracture, history of 3-vessel coronary artery bypass graft, arthritis. ALLERGIES: NO KNOWN DRUG ALLERGIES. MEDICATIONS: 1. Vancomycin. 2. Cefepime. 3. Aspirin. 4. Tenormin. 5. Lipitor. 6. Plavix. 7. Lasix. 8. Insulin. SOCIAL HISTORY: The patient is a former smoker. No alcohol or illicit drugs. FAMILY HISTORY: Noncontributory. REVIEW OF SYSTEMS: All systems have been reviewed and pertinent features are mentioned in the history of present illness. PHYSICAL EXAMINATION: GENERAL: This is a moderately obese male who is in no acute distress. He is awake and alert and oriented. VITAL SIGNS: Temperature 97.5, BP 110/57, respirations 20, heart rate 78. HEENT: Head is atraumatic. Extraocular movements grossly intact. Pupils reactive to light. No icterus. No nasal drainage or bleeding. Oropharynx moist mucosa without lesions. No thrush. NECK: Supple without adenopathy. LUNGS: Clear breath sounds with slight rhonchi at the bases. HEART: Regular S1, S2, without murmurs, rubs or gallops. CHEST: Sternal wound is intact and well healed. ABDOMEN: Bowel sounds present, obese, soft, nontender. RECTAL: Not performed. EXTREMITIES: No clubbing, cyanosis or edema. SKIN: No rash. NEUROLOGIC: No gross focal findings. PSYCHIATRIC: The patient is calm and cooperative. LABORATORY DATA: WBC 16.1, platelet count 214, 89% neutrophils, 3% lymphocytes, hemoglobin 13.0, creatinine 0.97, BUN 18, sodium 138. Liver function test normal. Blood culture pending. Influenza test negative. IMPRESSION: 1. Fever, unknown etiology. Probable viral infection. 2. Leukocytosis with left shift. At this point, it is not clear where the source of the fever is located. The patient has an unremarkable urinalysis and a chest x-ray seemed to be compatible with congestive heart failure. RECOMMENDATIONS: 1. Continue vancomycin. 2. Continue cefepime. 3. Monitor blood cultures. 4. Follow the temperature. 5. If the temperature persists, consider additional workup such as ISABEL, rheumatoid factor and repeat chest x-ray to see if potentially there is subtle pneumonia. Thank you for this consultation. I will follow the patient along with you and will make further recommendations upon followup if necessary. MD HARRIETT Acosta/fortunato , 07:05 PM , 07:18 PM
[2018-06-16] MEDS: Insulin NovoLOG Aspart Correctional Sugar Inj SQ SCH ×4 (07:39→22:29)
[2018-06-16 07:46] LABS: Baso # (Auto) 0.1 th/mm3 (0.0-0.2); Baso % (Auto) 0.8 % (0.0-2.0); Eos # (Auto) 0.1 th/mm3 (0.0-0.4); Eos % (Auto) 0.9 % (0.0-4.0); Hematocrit 36.5 % (39.0-51.0); Hemoglobin 12.1 gm/dL (13.0-17.0); Lymph # (Auto) 1.4 th/mm3 (1.0-4.8); Lymph % (Auto) 13.7 % (9.0-44.0); Mean Corpuscular HGB Conc 33.1 % (32.0-36.0); Mean Corpuscular Volume 81.3 fL (80.0-100.0); Mean Platelet Volume 8.4 fL (7.0-11.0); Mono # (Auto) 0.9 th/mm3 (0.0-0.9); Mono % (Auto) 8.9 % (0.0-8.0); Neut # (Auto) 7.5 th/mm3 (1.8-7.7); Neut % (Auto) 75.7 % (16.0-70.0); Platelet Count 198 th/mm3 (150-450); Red Blood Count 4.49 mil/mm3 (4.50-5.90); Red Cell Distribution Width 12.9 % (11.6-17.2)
[2018-06-16 08:05] LABS: Chloride 102 meq/L (98-107); Potassium 3.9 meq/L (3.5-5.1); Sodium 137 meq/L (136-145)
[2018-06-16 08:09] LABS: Anion Gap 7 meq/L (5-15); Calcium 8.1 mg/dL (8.5-10.1); Carbon Dioxide 28.5 meq/L (21.0-32.0); Glucose,Random 136 mg/dL (74-106)
[2018-06-16 08:10] LABS: Blood Urea Nitrogen 15 mg/dL (7-18)
[2018-06-16 08:13] LABS: Glomerular Filtration Rate Greater Than 89 mL/min (>89)
[2018-06-16] MEDS: Atenolol 25 MG Tablet PO SCH (08:40)
[2018-06-16] MEDS: Furosemide 40 MG Tablet PO SCH (08:40)
[2018-06-16] MEDS: Senna/Docusate Sodium 8.6/50 MG Tablet PO SCH ×2 (08:41→20:23)
[2018-06-16] MEDS: Vancomycin Inj 1,500 MG in Sodium Chlor 0.9% Inj 500 ML IV.SIG SCH ×2 (08:51→20:14)
--- NOTE | 2018-06-16 09:51 | P.PN ---
Subjective Interval history: Patient seen and examined today for follow-up on febrile illness. Patient denies any new complaints. Vital signs are stable. Patient still with T-max 100.3. Physical Exam Vital signs: Vital Signs 06/15/18 13:06 06/15/18 14:10 06/15/18 14:49 Temperature 102.6 F H 101 F H Pulse Rate 94 H 87 87 Respiratory Rate 24 20 20 Blood Pressure 146/67 H 117/63 109/62 Pulse Oximetry 89 L 95 94 L 06/15/18 16:00 06/15/18 20:00 06/16/18 00:00 Temperature 97.5 F L 98.4 F 100.3 F H Pulse Rate 78 82 82 Respiratory Rate 20 18 18 Blood Pressure 110/57 L 128/69 109/57 L Pulse Oximetry 96 93 L 93 L 06/16/18 08:00 Temperature 97.8 F Pulse Rate 71 Respiratory Rate 18 Blood Pressure 118/60 Pulse Oximetry 95 Intake & Output 06/15/18 06/16/18 06/16/18 18:59 06:59 18:59 Intake Total 1960 1060 / 1060 Balance 1960 1060 / 1060 Weight 121.8 kg 121.7 kg Intake: IV 1620 / 1620 100 / 100 Maxipime Inj 2,000 MG In NS Inj 100 / 100 100 / 100 100 ML @ 200 mls/hr IV.SIG Q12H ZAKIA Rx#:[id number] NS Inj 1,000 ML @ Wide Open IV. 1000 / 1000 SIG .Q0M ZAKIA Rx#:[id number] Vancomycin Inj 2,000 MG In NS 520 / 520 Inj 500 ML @ 250 mls/hr IV.SIG STAT STA Rx#:[id number] Oral 341 / 341 960 / 960 Other: # Voids 1 5 # Bowel Movements 1 Narrative: GENERAL: Well-developed, well-nourished, in no acute distress. alert and orientated HEENT: Head is normocephalic without any lesions or masses noted. Facial features are symmetric. Eyes: Extraocular muscles are intact. Conjunctivae were clear. NECK: Supple without any masses. Trachea midline no deviation. No JVD, CARDIAC: Regular rhythm, regular rate. S1/S2 are heard. No murmurs gallops or rubs. LUNGS: Clear to auscultation bilaterally. No wheeze, rhonchi or rales. No use of accessory muscles on inspiration or expiration. ABDOMEN: Soft, nontender. Nondistended. Bowel sounds heard in all 4 quadrants. No organomegaly or masses. Negative rebound, negative guarding EXTREMITIES: No edema, pulses are equal bilaterally. No cyanosis or clubbing NEUROLOGY: Mood and affect appear appropriate. Cranial nerves II through XII grossly intact. Moving all extremities, speech is clear Results - Labs CBC & Chem 7: 06/16/18 07:35 06/16/18 07:35 Laboratory Results - last 24 hr 06/15/18 06/15/18 06/15/18 12:24 13:25 13:25 CBC w Diff Auto diff final WBC 16.1 H RBC 4.86 Hgb 13.0 Hct 39.8 MCV 82.0 MCH 26.8 L MCHC 32.7 RDW 12.9 Plt Count 214 MPV 8.9 Neut % (Auto) 89.9 H Lymph % (Auto) 3.7 L [place] % (Auto) 5.9 Eos % (Auto) 0.1 Baso % (Auto) 0.4 Neut # (Auto) 14.4 H Lymph # (Auto) 0.6 L [place] # (Auto) 1.0 H Eos # (Auto) 0.0 Baso # (Auto) 0.1 WBC Differential . Differential Comment . Sodium 138 Potassium 4.5 Chloride 102 Carbon Dioxide 29.3 Anion Gap 7 BUN 18 Creatinine 0.97 Estimated GFR 76 L POC Glucose Random Glucose 148 H Lactic Acid Calcium 8.4 L Magnesium 1.9 Total Bilirubin 0.4 AST 35 ALT 35 Alkaline Phosphatase 139 H Troponin I Less than 0.02 L B-Natriuretic Peptide 411 H Total Protein 7.7 Albumin 3.1 L Lipase 67 L Ur Collection Type Urine Color Urine Clarity Urine pH Ur Specific [place] Urine Protein Urine Glucose (UA) Urine Ketones Urine Occult Blood Urine Nitrate Urine Bilirubin Urine Urobilinogen Ur Leukocyte Esterase Ur Squamous Epith Cells Micro UA Comment Ur Microscopic Review Urine Culture Comments Urine Collection Time 06/15/18 06/15/18 06/15/18 13:25 14:00 16:08 CBC w Diff WBC RBC Hgb Hct MCV MCH MCHC RDW Plt Count MPV Neut % (Auto) Lymph % (Auto) [place] % (Auto) Eos % (Auto) Baso % (Auto) Neut # (Auto) Lymph # (Auto) [place] # (Auto) Eos # (Auto) Baso # (Auto) WBC Differential Differential Comment Sodium Potassium Chloride Carbon Dioxide Anion Gap BUN Creatinine Estimated GFR POC Glucose Random Glucose Lactic Acid 2.1 H 1.9 Calcium Magnesium Total Bilirubin AST ALT Alkaline Phosphatase Troponin I B-Natriuretic Peptide Total Protein Albumin Lipase Ur Collection Type Clean catch Urine Color Yellow Urine Clarity Clear Urine pH 7.5 Ur Specific [place] 1.015 Urine Protein Negative Urine Glucose (UA) Negative Urine Ketones Negative Urine Occult Blood Negative Urine Nitrate Negative Urine Bilirubin Negative Urine Urobilinogen 0.2 Ur Leukocyte Esterase Negative Ur Squamous Epith Cells 0-5 Micro UA Comment Culture not ind Ur Microscopic Review Microscopic reviewed Urine Culture Comments Culture not ind Urine Collection Time 1400 06/15/18 06/15/18 06/16/18 16:32 21:16 07:33 CBC w Diff WBC RBC Hgb Hct MCV MCH MCHC RDW Plt Count MPV Neut % (Auto) Lymph % (Auto) [place] % (Auto) Eos % (Auto) Baso % (Auto) Neut # (Auto) Lymph # (Auto) [place] # (Auto) Eos # (Auto) Baso # (Auto) WBC Differential Differential Comment Sodium Potassium Chloride Carbon Dioxide Anion Gap BUN Creatinine Estimated GFR POC Glucose 136 H 111 H 138 H Random Glucose Lactic Acid Calcium Magnesium Total Bilirubin AST ALT Alkaline Phosphatase Troponin I B-Natriuretic Peptide Total Protein Albumin Lipase Ur Collection Type Urine Color Urine Clarity Urine pH Ur Specific [place] Urine Protein Urine Glucose (UA) Urine Ketones Urine Occult Blood Urine Nitrate Urine Bilirubin Urine Urobilinogen Ur Leukocyte Esterase Ur Squamous Epith Cells Micro UA Comment Ur Microscopic Review Urine Culture Comments Urine Collection Time 06/16/18 06/16/18 07:35 07:35 CBC w Diff Auto diff final WBC 10.0 RBC 4.49 L Hgb 12.1 L Hct 36.5 L MCV 81.3 MCH 27.0 MCHC 33.1 RDW 12.9 Plt Count 198 MPV 8.4 Neut % (Auto) 75.7 H Lymph % (Auto) 13.7 [place] % (Auto) 8.9 H Eos % (Auto) 0.9 Baso % (Auto) 0.8 Neut # (Auto) 7.5 Lymph # (Auto) 1.4 [place] # (Auto) 0.9 Eos # (Auto) 0.1 Baso # (Auto) 0.1 WBC Differential . Differential Comment . Sodium 137 Potassium 3.9 Chloride 102 Carbon Dioxide 28.5 Anion Gap 7 BUN 15 Creatinine 0.74 Estimated GFR Greater than 89 POC Glucose Random Glucose 136 H Lactic Acid Calcium 8.1 L Magnesium Total Bilirubin AST ALT Alkaline Phosphatase Troponin I B-Natriuretic Peptide Total Protein Albumin Lipase Ur Collection Type Urine Color Urine Clarity Urine pH Ur Specific [place] Urine Protein Urine Glucose (UA) Urine Ketones Urine Occult Blood Urine Nitrate Urine Bilirubin Urine Urobilinogen Ur Leukocyte Esterase Ur Squamous Epith Cells Micro UA Comment Ur Microscopic Review Urine Culture Comments Urine Collection Time Microbiology 06/15/18 13:35 Nasal Wash Influenza Types A,B Antigen - Final Negative for FLU A and B antigen Infection due to influenza A or B cannot be ruled out since the antigen present in the sample may be below the detection limit of the test. - Imaging Impressions Chest X-Ray 06/15/18 13:27 CONCLUSION: 1. Moderate pulmonary edema. 2. Cardiomegaly. 3. Tiny left pleural effusion. Assessment and Plan - Assessment (1) Systemic inflammatory response syndrome Code(s): R65.10 - Systemic inflammatory response syndrome (SIRS) of non- infectious origin without acute organ dysfunction Status: Acute (2) Fever of unknown origin Code(s): R50.9 - Fever, unspecified Status: Acute (3) Leukocytosis Code(s): D72.829 - Elevated white blood cell count, unspecified Status: Acute (4) Lactic acid acidosis Code(s): E87.2 - Acidosis Status: Acute - Plan Systemic inflammatory response syndrome, resolved -Patient meets criteria with febrile illness, leukocytosis, lactic acidosis. However no source of infection has been identified -Patient infectious source/fever of unknown origin is highly suspicious for possible cardiogenic in nature. Patient has had coronary bypass surgery done on 04/24/18. Will need to rule out any endocarditis -Continue empiric antibiotics include cefepime, vancomycin -Workup for infectious source is unremarkable at this time, chest x-ray does not indicate any infiltrate, urinalysis was unremarkable, influenza testing was negative -Continue to follow blood cultures, thus far negative for 1 day -Awaiting echocardiogram -Consulted infectious disease, who evaluated patient and indicated possible viral in nature. recommending to wait till blood cultures are negative for 72 hrs prior to discharge Hypertension, hyperlipidemia, coronary artery disease -Continue home medications Diabetes -Accu-Cheks with sliding scale insulin DVT prevention -Sequential compression devices
--- NOTE | 2018-06-16 14:58 | ECHRPT ---
Indication: Acute and subacute endocarditis, unspecified CONCLUSIONS The left ventricular systolic function is normal with an estimated ejection fraction in the range of 60-65%. Wall thickness is normal. Normal left ventricular size. The left atrial size is mildly dilated. There is mild tricuspid valve regurgitation. The estimated pulmonary arterial pressure is 31.7 mmHg. BP: / HR: Rhythm: Sinus MEASUREMENTS (Male / Female) Normal Values Technical Quality:fair 2D ECHO LV Diastolic Diameter PLAX 4.4 cm 4.2 - 5.9 / 3.9 - 5.3 cm LV Systolic Diameter PLAX 3.2 cm IVS Diastolic Thickness 1.3 cm 0.6 - 1.0 / 0.6 - 0.9 cm LVPW Diastolic Thickness 1.3 cm 0.6 - 1.0 / 0.6 - 0.9 cm LV Relative Wall Thickness 0.6 LVOT Diameter 2.2 cm M-MODE Aortic Root Diameter MM 3.8 cm LA Systolic Diameter MM 4.6 cm LA Ao Ratio MM 1.2 AV Cusp Separation MM 2.3 cm DOPPLER AV Peak Velocity 144.0 cm/s AV Peak Gradient 8.3 mmHg LVOT Peak Velocity 86.9 cm/s LVOT Peak Gradient 3.0 mmHg AV Area Cont Eq pk 2.3 cm Mitral E Point Velocity 85.9 cm/s Mitral A Point Velocity 73.1 cm/s Mitral E to A Ratio 1.2 LV E' Lateral Velocity 7.9 cm/s Mitral E to LV E' Lateral Ratio 10.9 LV E' Septal Velocity 6.8 cm/s Mitral E to LV E' Septal Ratio 12.6 TR Peak Velocity 233.0 cm/s TR Peak Gradient 21.7 mmHg Right Atrial Pressure 10.0 mmHg Pulmonary Artery Systolic Pressu 31.7 mmHg Right Ventricular Systolic Press 31.7 mmHg PV Peak Velocity 111.0 cm/s PV Peak Gradient 4.9 mmHg FINDINGS LEFT VENTRICLE The left ventricular systolic function is normal with an estimated ejection fraction in the range of 60-65%. Wall thickness is normal. Normal left ventricular size. RIGHT VENTRICLE Normal right ventricular size and systolic function. LEFT ATRIUM The left atrial size is mildly dilated. RIGHT ATRIUM The right atrial size is normal. ATRIAL SEPTUM Normal atrial septal thickness without atrial level shunting by limited color doppler interrogation. AORTA The aortic root and proximal ascending aorta are normal in size on limited imaging. MITRAL VALVE Structurally normal mitral valve. No mitral valve stenosis or regurgitation. AORTIC VALVE Trileaflet aortic valve. No aortic valve stenosis or regurgitation. TRICUSPID VALVE There is mild tricuspid valve regurgitation. The estimated pulmonary arterial pressure is 31.7 mmHg. PULMONARY VALVE No pulmonary valve regurgitation or stenosis. VESSELS The inferior vena cava is normal in size. PERICARDIUM No pericardial effusion. Payton Santillan MD, FACC (Electronically Signed) Final Date:16 June 2018 14:57
[2018-06-16] MEDS: Temazepam 15 MG Capsule PO PRN (22:40)
[2018-06-17] MEDS: Insulin NovoLOG Aspart Correctional Sugar Inj SQ SCH ×3 (08:52→17:34)
[2018-06-17] MEDS: Vancomycin Inj 1,500 MG in Sodium Chlor 0.9% Inj 500 ML IV.SIG SCH (08:53)
[2018-06-17] MEDS: Furosemide 40 MG Tablet PO SCH (08:53)
[2018-06-17] MEDS: Senna/Docusate Sodium 8.6/50 MG Tablet PO SCH (08:53)
[2018-06-17] MEDS: Atenolol 25 MG Tablet PO SCH (08:53)
[2018-06-17 10:33] VITALS: RESP 20
--- NOTE | 2018-06-17 10:43 | P.PN ---
Subjective Interval history: 73-year-old male who was seen and examined today for follow-up on fever of unknown origin. Patient is afebrile at this time. Denies any new complaints. Vital signs are stable. Awaiting blood culture be negative for 3 days prior to discharge. Physical Exam Vital signs: Vital Signs 06/16/18 12:00 06/16/18 15:47 06/16/18 20:00 Temperature 96.7 F L 97.4 F L 99.0 F Pulse Rate 66 67 69 Respiratory Rate 18 18 18 Blood Pressure 130/73 101/60 110/63 Pulse Oximetry 95 96 96 06/17/18 00:00 06/17/18 08:00 Temperature 96.9 F L 97 F L Pulse Rate 76 80 Respiratory Rate 18 20 Blood Pressure 105/57 L Pulse Oximetry 94 L 95 Intake & Output 06/16/18 06/17/18 06/17/18 18:59 06:59 18:59 Intake Total 615 / 615 750 / 750 Output Total 400 / 400 Balance 615 / 615 350 / 350 Weight 121.7 kg Intake: IV 615 / 615 550 / 550 Maxipime Inj 2,000 MG In NS Inj 100 / 100 100 ML @ 200 mls/hr IV.SIG Q12H [facility]AKIA Rx#:[id number] Vancomycin Inj 1,500 MG In NS 515 / 515 550 / 550 Inj 500 ML @ 250 mls/hr IV.SIG Q12H ZAKIA Rx#:[id number] Oral 200 / 200 Output: Urine 400 / 400 Other: # Voids 6 # Bowel Movements 1 Narrative: GENERAL: Well-developed, well-nourished, in no acute distress. alert and orientated HEENT: Head is normocephalic without any lesions or masses noted. Facial features are symmetric. Eyes: Extraocular muscles are intact. Conjunctivae were clear. NECK: Supple without any masses. Trachea midline no deviation. No JVD, CARDIAC: Regular rhythm, regular rate. S1/S2 are heard. No murmurs gallops or rubs. LUNGS: Clear to auscultation bilaterally. No wheeze, rhonchi or rales. No use of accessory muscles on inspiration or expiration. ABDOMEN: Soft, nontender. Nondistended. Bowel sounds heard in all 4 quadrants. No organomegaly or masses. Negative rebound, negative guarding EXTREMITIES: No edema, pulses are equal bilaterally. No cyanosis or clubbing NEUROLOGY: Mood and affect appear appropriate. Cranial nerves II through XII grossly intact. Moving all extremities, speech is clear Results - Labs CBC & Chem 7: 06/16/18 07:35 06/16/18 07:35 Laboratory Results - last 24 hr 06/16/18 20:15 POC Glucose 136 H Microbiology 06/15/18 13:35 Blood - Peripheral Aerobic Blood Culture - Preliminary No growth in 1 day 06/15/18 13:35 Blood - Peripheral Anaerobic Blood Culture - Preliminary No growth in 1 day 06/15/18 13:25 Blood - Peripheral Aerobic Blood Culture - Preliminary No growth in 1 day 06/15/18 13:25 Blood - Peripheral Anaerobic Blood Culture - Preliminary No growth in 1 day Assessment and Plan - Assessment (1) Systemic inflammatory response syndrome Code(s): R65.10 - Systemic inflammatory response syndrome (SIRS) of non- infectious origin without acute organ dysfunction Status: Acute (2) Fever of unknown origin Code(s): R50.9 - Fever, unspecified Status: Acute (3) Leukocytosis Code(s): D72.829 - Elevated white blood cell count, unspecified Status: Acute (4) Lactic acid acidosis Code(s): E87.2 - Acidosis Status: Acute - Plan Systemic inflammatory response syndrome, resolved -Patient meets criteria with febrile illness, leukocytosis, lactic acidosis. However no source of infection has been identified -Patient infectious source/fever of unknown origin is highly suspicious for possible cardiogenic in nature. Patient has had coronary bypass surgery done on 04/24/18. Will need to rule out any endocarditis -Continue empiric antibiotics include cefepime, vancomycin -Workup for infectious source is unremarkable at this time, chest x-ray does not indicate any infiltrate, urinalysis was unremarkable, influenza testing was negative -Continue to follow blood cultures, thus far negative for 2 day -Echocardiogram did not indicate any source of infection. -Consulted infectious disease, who evaluated patient and indicated possible viral in nature. recommending to wait till blood cultures are negative for 72 hrs prior to discharge Hypertension, hyperlipidemia, coronary artery disease -Continue home medications Diabetes -Accu-Cheks with sliding scale insulin DVT prevention -Sequential compression devices
--- NOTE | 2018-06-17 17:47 | P.DS ---
Date of admission: 06/15/18 14:30 Primary care physician: Emeterio Cavazos MD Attending physician on discharge: Marcella Lara Anticipated date of discharge: 06/17/18 Brief History from admission: 73-year-old male with known history of hypertension, hyperlipidemia, diabetes, coronary artery disease who presented to the hospital because of fever. Patient states that he has been in his normal state of health until this morning when he started noticing fever and chills and because of that he came to the emergency department for evaluation. He thought that he may have picked up a virus when he was out shopping the last couple days. However he has not had any signs or symptoms of any sicknesses or illnesses. He denies any runny nose, cough, congestion, abdominal pain, diarrhea, shortness of breath , dyspnea. Patient does have a rather complex recent history with open heart surgery for three-vessel bypass on 04/24/18. In the emergency department patient had workup and was found to have fever of unknown origin, leukocytosis, lactic acidosis. Is recommended by ER physician that the patient be admitted for further evaluation and management. DS: Diagnosis - Discharge Diagnosis (1) Systemic inflammatory response syndrome Status: Acute (2) Fever of unknown origin Status: Acute (3) Leukocytosis Status: Acute (4) Lactic acid acidosis Status: Acute DS: Summary Hospital Course: 73-year-old male who presented to hospital because of fever. Patient was not feeling well so he came to the hospital and had workup done. There was no source of infection identified. Patient did have findings with leukocytosis , mild lactic acidosis, full workup was ascertained and the chest x-ray did not indicate any acute infection source, urinalysis was clear, influenza testing was negative. Patient did undergo echocardiogram to evaluate for endocarditis secondary patient had a recent coronary bypass surgery. That was unremarkable as well. Blood cultures have remained negative for 2 days. Infectious disease was consulted who followed the patient during his stay in the hospital. Patient remained on empirical antibiotics include cefepime and Vanco. Patient did not have any further fevers during his stay in the hospital. Likely source is viral in nature. Patient is stable for discharge home without any antibiotics. We will plan discharge accordingly. - Time Spent with Patient Total time spent providing and/or coordinating discharge services: Greater than 30 minutes - Quality: VTE Deep Vein Thrombosis/Pulmonary Embolism Present on Admission: No Exam Vital signs: Vital Signs 06/16/18 20:00 06/17/18 00:00 06/17/18 08:00 Temperature 99.0 F 96.9 F L 97 F L Pulse Rate 69 76 80 Respiratory Rate 18 18 20 Blood Pressure 110/63 105/57 L Pulse Oximetry 96 94 L 95 06/17/18 12:00 Temperature 96.4 F L Pulse Rate 60 Respiratory Rate 20 Blood Pressure 102/59 L Pulse Oximetry 96 Intake & Output 06/16/18 06/17/18 06/17/18 18:59 06:59 18:59 Intake Total 615 / 615 750 / 750 Output Total 400 / 400 Balance 615 / 615 350 / 350 Weight 121.7 kg Intake: IV 615 / 615 550 / 550 Maxipime Inj 2,000 MG In NS Inj 100 / 100 100 ML @ 200 mls/hr IV.SIG Q12H ZAKIA Rx#:[id number] Vancomycin Inj 1,500 MG In NS 515 / 515 550 / 550 Inj 500 ML @ 250 mls/hr IV.SIG Q12H ZAKIA Rx#:[id number] Oral 200 / 200 Output: Urine 400 / 400 Other: # Voids 6 # Bowel Movements 1 Narrative: GENERAL: Well-developed, well-nourished, in no acute distress. alert and orientated HEENT: Head is normocephalic without any lesions or masses noted. Facial features are symmetric. Eyes: Extraocular muscles are intact. Conjunctivae were clear. NECK: Supple without any masses. Trachea midline no deviation. No JVD, CARDIAC: Regular rhythm, regular rate. S1/S2 are heard. No murmurs gallops or rubs. LUNGS: Clear to auscultation bilaterally. No wheeze, rhonchi or rales. No use of accessory muscles on inspiration or expiration. ABDOMEN: Soft, nontender. Nondistended. Bowel sounds heard in all 4 quadrants. No organomegaly or masses. Negative rebound, negative guarding EXTREMITIES: No edema, pulses are equal bilaterally. No cyanosis or clubbing NEUROLOGY: Mood and affect appear appropriate. Cranial nerves II through XII grossly intact. Moving all extremities, speech is clear Results Procedures completed during hospitalization: ECHOCARDIOGRAM CONCLUSIONS The left ventricular systolic function is normal with an estimated ejection fraction in the range of 60-65%. Wall thickness is normal. Normal left ventricular size. The left atrial size is mildly dilated. There is mild tricuspid valve regurgitation. The estimated pulmonary arterial pressure is 31.7 mmHg. Labs on day of discharge: Labs from last 24 hours 06/16/18 20:15 POC Glucose 136 H Preliminary micro results at discharge 06/15/18 13:35 Aerobic Blood Culture - Preliminary Blood - Peripheral No growth in 2 days Anaerobic Blood Culture - Preliminary No growth in 2 days 06/15/18 13:25 Aerobic Blood Culture - Preliminary Blood - Peripheral No growth in 2 days Anaerobic Blood Culture - Preliminary No growth in 2 days - Impressions ITS Impressions Chest X-Ray 06/15/18 13:27 CONCLUSION: 1. Moderate pulmonary edema. 2. Cardiomegaly. 3. Tiny left pleural effusion. Discharge Plan - Discharge Disposition Patient Disposition: Discharge Home - Discharge Condition Condition: Stable - Discharge Order Discharge Orders: Discharge Order (Routine); Ordered 06/17/18 Ordered By: Fredy Bergeron - Discharge Details Anticipated Discharge Date: 06/17/18 - Physicians Team Primary Care Provider: Emeterio Cavazos Attending Provider: Marcella Lara Other Providers: Devin Samuel MD
--- NOTE | 2018-06-17 17:47 | P.PNID ---
Subjective Remarks: Patient feels okay. Denies chills. No cough or SOB. afebrile. Blood cultures negative. 2D ECHO unremarkable. 73-year-old white male who developed fever and chills and presented to the emergency department this morning for evaluation. The patient has a recent history of coronary artery bypass graft surgery on 04/24/2018. He states that he was feeling fine except for earlier today when he started developing chills. He reports that he was doing more than his usual activity in that he would go shopping usually for 1 hour, but that he went for 2 hours the day previous, and felt that he "overdid it." He denies sweats, nausea, vomiting, abdominal pain, diarrhea, dysuria, back pain or shortness of breath. He notes that his temperature at home was 102 degrees. He was evaluated in the Emergency Department and his temperature was 102.6. He also had elevated white blood cell count of 16.1. Urinalysis was performed and it was unremarkable. Chest x-ray showed moderate pulmonary edema and tiny left pleural effusion. The patient has no sputum production. He has no chest pain. He has had no problems with the sternal incision since surgery. Past Medical History: PAST MEDICAL HISTORY: Diabetes mellitus, congestive heart failure, COPD, history of femur fracture, history of 3-vessel coronary artery bypass graft, arthritis. Allergies/Adverse Reactions: Allergies No Known Allergies Allergy (Verified 06/15/18 13:06) Objective Vital Signs 06/16/18 20:00 06/17/18 00:00 06/17/18 08:00 Temperature 99.0 F 96.9 F L 97 F L Pulse Rate 69 76 80 Respiratory Rate 18 18 20 Blood Pressure 110/63 105/57 L Pulse Oximetry 96 94 L 95 06/17/18 12:00 Temperature 96.4 F L Pulse Rate 60 Respiratory Rate 20 Blood Pressure 102/59 L Pulse Oximetry 96 Intake & Output 06/16/18 06/17/18 06/17/18 18:59 06:59 18:59 Intake Total 615 / 615 750 / 750 Output Total 400 / 400 Balance 615 / 615 350 / 350 Weight 121.7 kg Intake: IV 615 / 615 550 / 550 Maxipime Inj 2,000 MG In NS Inj 100 / 100 100 ML @ 200 mls/hr IV.SIG Q12H ZAKIA Rx#:[id number] Vancomycin Inj 1,500 MG In NS 515 / 515 550 / 550 Inj 500 ML @ 250 mls/hr IV.SIG Q12H ZAKIA Rx#:[id number] Oral 200 / 200 Output: Urine 400 / 400 Other: # Voids 6 # Bowel Movements 1 06/15/18 13:35 Blood - Peripheral Aerobic Blood Culture - Preliminary No growth in 2 days 06/15/18 13:35 Blood - Peripheral Anaerobic Blood Culture - Preliminary No growth in 2 days 06/15/18 13:25 Blood - Peripheral Aerobic Blood Culture - Preliminary No growth in 2 days 06/15/18 13:25 Blood - Peripheral Anaerobic Blood Culture - Preliminary No growth in 2 days 06/15/18 13:35 Nasal Wash Influenza Types A,B Antigen - Final Negative for FLU A and B antigen Infection due to influenza A or B cannot be ruled out since the antigen present in the sample may be below the detection limit of the test. Lab - Hematology Results 06/16/18 07:35 CBC w Diff Auto diff final WBC 10.0 RBC 4.49 L Hgb 12.1 L Hct 36.5 L MCV 81.3 MCH 27.0 MCHC 33.1 RDW 12.9 Plt Count 198 MPV 8.4 Neut % (Auto) 75.7 H Lymph % (Auto) 13.7 [place] % (Auto) 8.9 H Eos % (Auto) 0.9 Baso % (Auto) 0.8 Neut # (Auto) 7.5 Lymph # (Auto) 1.4 [place] # (Auto) 0.9 Eos # (Auto) 0.1 Baso # (Auto) 0.1 WBC Differential . Differential Comment . Lab - Chemistry Results 06/15/18 06/16/18 06/16/18 21:16 07:33 07:35 Sodium 137 Potassium 3.9 Chloride 102 Carbon Dioxide 28.5 Anion Gap 7 BUN 15 Creatinine 0.74 Estimated GFR Greater than 89 POC Glucose 111 H 138 H Random Glucose 136 H Calcium 8.1 L 06/16/18 20:15 Sodium Potassium Chloride Carbon Dioxide Anion Gap BUN Creatinine Estimated GFR POC Glucose 136 H Random Glucose Calcium Imaging: ITS Impressions Chest X-Ray 06/15/18 13:27 CONCLUSION: 1. Moderate pulmonary edema. 2. Cardiomegaly. 3. Tiny left pleural effusion. Physical Exam: PHYSICAL EXAMINATION: GENERAL: No acute distress. HEENT: Head is atraumatic. Extraocular movements grossly intact. Pupils reactive to light. No icterus. No nasal drainage or bleeding. Oropharynx moist mucosa without lesions. No thrush. NECK: Supple without adenopathy. LUNGS: Clear breath sounds. HEART: Regular S1, S2, without murmurs, rubs or gallops. CHEST: Sternal wound is intact and well healed. ABDOMEN: Bowel sounds present, obese, soft, nontender. EXTREMITIES: No clubbing, cyanosis or edema. SKIN: No rash. NEUROLOGIC: No gross focal findings. PSYCHIATRIC: Calm and cooperative. Assessment and Plan - Plan IMPRESSION: 1. Fever, unknown etiology. Probable viral infection. 2. Leukocytosis with left shift. Improved. Stable. RECOMMENDATIONS: 1. Stop vancomycin. 2. Stop cefepime. Okay to discharge without antibiotics.
[2018-06-17] MEDS ORDERED: VANCOMYCIN TROUGH OTHER ONE (19:45)
[2018-06-17 19:55] VITALS: BP 97/57; PULSE 68; TEMP 98.1; O2SAT 92
== END 2018-06-17 18:37 | disposition home or self-care (01) ==
LOC: PHED 12:45 → PHEDA 14:30 → PH3 15:22
PROVIDERS: ADMIT Family Medicine; ATTEND Family Medicine